=== PATIENT | male | born 1955 | race American Indian/Alaskan Native ===

== ENCOUNTER 2017-07-30 14:32 | Inpatient (IN) | payer OTHER ==
--- NOTE | 2017-07-30 14:42 | EDM.PDOC ---
ED HPI GENERAL MEDICAL PROBLEM - General Chief Complaint: Neurological Problem Stated Complaint: FALL/SYNCOPE/HALLUCINATIONS Time Seen by Provider: 07/30/17 14:42 - History of Present Illness INITIAL COMMENTS - FREE TEXT/NARRATIVE: 62-year-old male presents emergency room with decreased level of consciousness and significant sedation. According to the family he's been this way since very early this morning. The patient has been complaining of a headache. The patient recently moved in with his daughter within the last couple of weeks to get away from a bad environment were lots of drugs and alcohol were involved. According to the family he has not been doing any of this for the last several weeks. The patient is quite somnolent and not willing to answer many questions for me. He moves all 4 extremities with no localized weakness. The patient has multiple medical problems including newly diagnosed type 2 diabetes. His medication list is not currently available. He uses home treatment for sleep apnea it is not clear to CPap her BiPAP believe is on medication for his high blood pressure. He's treated for hyperlipidemia as well as his advanced lung disease. Headache Pain Score (Numeric/FACES): 5 - Related Data Allergies Allergy/AdvReac Type Severity Reaction Status Date / Time No Known Allergies Allergy Verified 07/30/17 15:13 Home Meds: Home Meds Albuterol Sulfate [Proair Respiclick] 2 inh INH Q4H PRN 07/30/17 [History] Allopurinol [Zyloprim] 350 mg PO DAILY 07/30/17 [History] Budesonide/Formoterol [Symbicort 80-4.5 MCG] 1 inh INH BID 07/30/17 [History] Cyclobenzaprine [Flexeril] 10 mg PO TID PRN 07/30/17 [History] Fish Oil/Ruffin-3 Fatty Acids [Fish Oil 1,000 MG] 1 tab PO DAILY 07/30/17 [ History] Furosemide 40 mg PO DAILY 07/30/17 [History] Glucosamine [Glucosamine Sulfate] 1 tab PO DAILY 07/30/17 [History] Indomethacin [Indocin] 50 mg PO DAILY 07/30/17 [History] Potassium Chloride 10 meq PO DAILY 07/30/17 [History] Tamsulosin HCl 0.4 mg PO DAILY 07/30/17 [History] atorvaSTATin Calcium [Atorvastatin Calcium] 20 mg PO BEDTIME 07/30/17 [History] metFORMIN HCl [Metformin HCl] 1,000 mg PO DAILY 07/30/17 [History] ED ROS GENERAL - Review of Systems Review Of Systems: Unable To Obtain ED EXAM, NEURO - Physical Exam Exam: See Below Exam Limited By: Other (She was very sedated responds to painful stimuli and at times will answer a few simple questions) General Appearance: Lethargic, Obtunded Ears: Normal External Exam, Normal Canal, Other (Significant cerumen) Nose: Normal Inspection Throat/Mouth: Normal Inspection, Normal Lips, Normal Oropharynx, Normal Voice, No Airway Compromise, Other Head Exam: Atraumatic, Other (He has some swelling at the base of his skull on the left radiating into his neck according to the family this is getting worse there is no area of fluctuation or redness or warmth on this) Neck: Supple, Non-Tender, Lymphadenopathy (R), Other (He has some swelling left side of his neck). No: Lymphadenopathy (L) Respiratory/Chest: No Respiratory Distress, Lungs Clear, Normal Breath Sounds, Decreased Breath Sounds Cardiovascular: Regular Rate, Rhythm, No Murmur, Other (Mild pitting edema noted ) GI/Abdominal: Normal Bowel Sounds, Soft, Non-Tender, Other ([place] anterior abdominal wall he has a lesion that he keeps scratching at night and causes it to bleed is probably developing into a pyogenic granuloma superior to the right side of his umbilicus. Distal to this he has some intermittent patchy areas of erythema I do not believe this represents a cellulitis at this point) Neurological: Other (Pain patient is moving all 4 extremities he is sedated to the point where thorough neurologic evaluation is not practical or possible). No: Alert Back Exam: Normal Inspection Extremities: Other (Mild pitting edema) Course - Vital Signs Last Recorded V/S: Last Vital Signs Temp 36.1 C 07/30/17 14:41 Pulse 77 07/30/17 14:41 Resp 20 07/30/17 14:41 BP 126/79 07/30/17 14:41 Pulse Ox 97 07/30/17 14:41 - Orders/Labs/Meds Orders: Active Orders 24 hr Category Date Time Status EKG Documentation Completion [RC] STAT Care 07/30/17 15:40 Active Medication Orders Acetaminophen (Tylenol) 650 mg PO Q4H PRN PRN Reason: Pain (Mild 1-3)/fever Albuterol/Ipratropium (Duoneb 3.0-0.5 Mg/3 Ml) 3 ml NEB Q4H PRN PRN Reason: Shortness Of Breath/wheezing Folic Acid (Folic Acid) 1 mg PO DAILY HANNAH Hydralazine HCl (Apresoline) 10 mg PO Q6H PRN PRN Reason: Hypertension Lorazepam (Ativan) 0 mg IVPUSH Q4H PRN; Protocol PRN Reason: withdrawl Lorazepam (Ativan) 2 mg IVPUSH Q4H PRN PRN Reason: Seizures Metoprolol Tartrate (Lopressor) 5 mg IVPUSH Q4H PRN PRN Reason: Tachycardia Ondansetron HCl (Zofran Odt) 4 mg PO Q6H PRN PRN Reason: nausea, able to take PO Ondansetron HCl (Zofran) 4 mg IV Q6H PRN PRN Reason: Nausea/Vomiting Temazepam (Restoril) 15 mg PO BEDTIME PRN PRN Reason: Sleep Thiamine HCl (Vitamin B-1) 100 mg PO DAILY HANNAH Labs: Laboratory Tests 07/30/17 07/30/17 07/30/17 Range/Units 14:45 14:45 14:45 WBC 6.77 (4.23-9.07) K/mm3 RBC 4.41 L (4.63-6.08) M/mm3 Hgb 14.2 (13.7-17.5) gm/L Hct 41.9 (40.1-51.0) % MCV 95.0 H (79.0-92.2) fl MCH 32.2 (25.7-32.2) pg MCHC 33.9 (32.2-35.5) g/dl RDW Std Deviation 46.2 H (35.1-43.9) fL Plt Count 184 (163-337) K/mm3 MPV 9.4 (9.4-12.3) fl Neutrophils % (Manual) 58 (40-60) % Band Neutrophils % 0 (0-10) % Lymphocytes % (Manual) 39 (20-40) % Atypical Lymphs % 0 % Monocytes % (Manual) 2 (2-10) % Eosinophils % (Manual) 1 (0.8-7.0) % Basophils % (Manual) 0 L (0.2-1.2) Platelet Estimate Adequate Plt Morphology Comment Normal RBC Morph Comment Normal PT 10.6 (8.0-13.0) SECONDS INR 0.97 APTT 34 (22-36) SECONDS Sodium 140 (136-145) mEq/L Potassium 4.0 (3.5-5.1) mEq/L Chloride 107 (98-107) mEq/L Carbon Dioxide 25 (21-32) mEq/L Anion Gap 12.0 (5-15) BUN 20 H (7-18) mg/dL Creatinine 1.2 (0.7-1.3) mg/dL Est Cr Clr Drug Dosing TNP Estimated GFR (MDRD) > 60 (>60) mL/min BUN/Creatinine Ratio 16.7 (14-18) Glucose 110 (80-115) mg/dL Calcium 8.9 (8.5-10.1) mg/dL Total Bilirubin 0.7 (0.2-1.0) mg/dL AST 68 H (15-37) U/L ALT 76 H (16-63) U/L Alkaline Phosphatase 106 (46-116) U/L Troponin I < 0.017 (0.00-0.056) ng/mL Total Protein 7.3 (6.4-8.2) g/dl Albumin 3.6 (3.4-5.0) g/dl Globulin 3.7 gm/dL Albumin/Globulin Ratio 1.0 (1-2) TSH 3rd Generation (0.358-3.74) uIU/mL Urine Color (Yellow) Urine Appearance (Clear) Urine pH (5.0-8.0) Ur Specific [place] (1.005-1.030) Urine Protein (Negative) Urine Glucose (UA) (Negative) Urine Ketones (Negative) Urine Occult Blood (Negative) Urine Nitrite (Negative) Urine Bilirubin (Negative) Urine Urobilinogen (0.2-1.0) Ur Leukocyte Esterase (Negative) Urine RBC (0-5) /hpf Urine WBC (0-5) /hpf Ur Epithelial Cells (0-5) /hpf Urine Bacteria (FEW) /hpf Urine Mucus (FEW) /hpf Salicylates (2.8-20) mg/dL Urine Opiates Screen (NEGATIVE) Ur Buprenorphine Scrn (NEGATIVE) Ur Oxycodone Screen (NEGATIVE) Urine Methadone Screen (NEGATIVE) Ur Propoxyphene Screen (NEGATIVE) Acetaminophen (10-30) ug/mL Ur Barbiturates Screen (NEGATIVE) Ur Tricyclics Screen (NEGATIVE) Ur Phencyclidine Scrn (NEGATIVE) Ur Amphetamine Screen (NEGATIVE) U Methamphetamines Scrn (NEGATIVE) U Benzodiazepines Scrn (NEGATIVE) U Cocaine Metab Screen (NEGATIVE) U Marijuana (THC) Screen (NEGATIVE) Ethyl Alcohol 0.00 (0.00) gm% 07/30/17 07/30/17 07/30/17 Range/Units 14:45 14:45 14:45 WBC (4.23-9.07) K/mm3 RBC (4.63-6.08) M/mm3 Hgb (13.7-17.5) gm/L Hct (40.1-51.0) % MCV (79.0-92.2) fl MCH (25.7-32.2) pg MCHC (32.2-35.5) g/dl RDW Std Deviation (35.1-43.9) fL Plt Count (163-337) K/mm3 MPV (9.4-12.3) fl Neutrophils % (Manual) (40-60) % Band Neutrophils % (0-10) % Lymphocytes % (Manual) (20-40) % Atypical Lymphs % % Monocytes % (Manual) (2-10) % Eosinophils % (Manual) (0.8-7.0) % Basophils % (Manual) (0.2-1.2) Platelet Estimate Plt Morphology Comment RBC Morph Comment PT (8.0-13.0) SECONDS INR APTT (22-36) SECONDS Sodium (136-145) mEq/L Potassium (3.5-5.1) mEq/L Chloride (98-107) mEq/L Carbon Dioxide (21-32) mEq/L Anion Gap (5-15) BUN (7-18) mg/dL Creatinine (0.7-1.3) mg/dL Est Cr Clr Drug Dosing Estimated GFR (MDRD) (>60) mL/min BUN/Creatinine Ratio (14-18) Glucose (80-115) mg/dL Calcium (8.5-10.1) mg/dL Total Bilirubin (0.2-1.0) mg/dL AST (15-37) U/L ALT (16-63) U/L Alkaline Phosphatase (46-116) U/L Troponin I (0.00-0.056) ng/mL Total Protein (6.4-8.2) g/dl Albumin (3.4-5.0) g/dl Globulin gm/dL Albumin/Globulin Ratio (1-2) TSH 3rd Generation 1.013 (0.358-3.74) uIU/mL Urine Color (Yellow) Urine Appearance (Clear) Urine pH (5.0-8.0) Ur Specific [place] (1.005-1.030) Urine Protein (Negative) Urine Glucose (UA) (Negative) Urine Ketones (Negative) Urine Occult Blood (Negative) Urine Nitrite (Negative) Urine Bilirubin (Negative) Urine Urobilinogen (0.2-1.0) Ur Leukocyte Esterase (Negative) Urine RBC (0-5) /hpf Urine WBC (0-5) /hpf Ur Epithelial Cells (0-5) /hpf Urine Bacteria (FEW) /hpf Urine Mucus (FEW) /hpf Salicylates 2.5 L (2.8-20) mg/dL Urine Opiates Screen (NEGATIVE) Ur Buprenorphine Scrn (NEGATIVE) Ur Oxycodone Screen (NEGATIVE) Urine Methadone Screen (NEGATIVE) Ur Propoxyphene Screen (NEGATIVE) Acetaminophen 0 L (10-30) ug/mL Ur Barbiturates Screen (NEGATIVE) Ur Tricyclics Screen (NEGATIVE) Ur Phencyclidine Scrn (NEGATIVE) Ur Amphetamine Screen (NEGATIVE) U Methamphetamines Scrn (NEGATIVE) U Benzodiazepines Scrn (NEGATIVE) U Cocaine Metab Screen (NEGATIVE) U Marijuana (THC) Screen (NEGATIVE) Ethyl Alcohol (0.00) gm% 07/30/17 07/30/17 Range/Units 15:30 15:30 WBC (4.23-9.07) K/mm3 RBC (4.63-6.08) M/mm3 Hgb (13.7-17.5) gm/L Hct (40.1-51.0) % MCV (79.0-92.2) fl MCH (25.7-32.2) pg MCHC (32.2-35.5) g/dl RDW Std Deviation (35.1-43.9) fL Plt Count (163-337) K/mm3 MPV (9.4-12.3) fl Neutrophils % (Manual) (40-60) % Band Neutrophils % (0-10) % Lymphocytes % (Manual) (20-40) % Atypical Lymphs % % Monocytes % (Manual) (2-10) % Eosinophils % (Manual) (0.8-7.0) % Basophils % (Manual) (0.2-1.2) Platelet Estimate Plt Morphology Comment RBC Morph Comment PT (8.0-13.0) SECONDS INR APTT (22-36) SECONDS Sodium (136-145) mEq/L Potassium (3.5-5.1) mEq/L Chloride (98-107) mEq/L Carbon Dioxide (21-32) mEq/L Anion Gap (5-15) BUN (7-18) mg/dL Creatinine (0.7-1.3) mg/dL Est Cr Clr Drug Dosing Estimated GFR (MDRD) (>60) mL/min BUN/Creatinine Ratio (14-18) Glucose (80-115) mg/dL Calcium (8.5-10.1) mg/dL Total Bilirubin (0.2-1.0) mg/dL AST (15-37) U/L ALT (16-63) U/L Alkaline Phosphatase (46-116) U/L Troponin I (0.00-0.056) ng/mL Total Protein (6.4-8.2) g/dl Albumin (3.4-5.0) g/dl Globulin gm/dL Albumin/Globulin Ratio (1-2) TSH 3rd Generation (0.358-3.74) uIU/mL Urine Color Yellow (Yellow) Urine Appearance Clear (Clear) Urine pH 6.0 (5.0-8.0) Ur Specific [place] > or = 1.030 (1.005-1.030) Urine Protein Negative (Negative) Urine Glucose (UA) Negative (Negative) Urine Ketones Negative (Negative) Urine Occult Blood Negative (Negative) Urine Nitrite Negative (Negative) Urine Bilirubin 1+ H (Negative) Urine Urobilinogen 1.0 (0.2-1.0) Ur Leukocyte Esterase Negative (Negative) Urine RBC Not seen (0-5) /hpf Urine WBC Not seen (0-5) /hpf Ur Epithelial Cells 0-5 (0-5) /hpf Urine Bacteria Not seen (FEW) /hpf Urine Mucus Not seen (FEW) /hpf Salicylates (2.8-20) mg/dL Urine Opiates Screen Negative (NEGATIVE) Ur Buprenorphine Scrn Negative (NEGATIVE) Ur Oxycodone Screen Negative (NEGATIVE) Urine Methadone Screen Negative (NEGATIVE) Ur Propoxyphene Screen Negative (NEGATIVE) Acetaminophen (10-30) ug/mL Ur Barbiturates Screen Negative (NEGATIVE) Ur Tricyclics Screen Negative (NEGATIVE) Ur Phencyclidine Scrn Negative (NEGATIVE) Ur Amphetamine Screen Presumptive positive H (NEGATIVE) U Methamphetamines Scrn Presumptive positive H (NEGATIVE) U Benzodiazepines Scrn Negative (NEGATIVE) U Cocaine Metab Screen Negative (NEGATIVE) U Marijuana (THC) Screen Presumptive positive H (NEGATIVE) Ethyl Alcohol (0.00) gm% Meds: Medications Generic Name Dose Route Start Last Admin Trade Name Freq PRN Reason Stop Dose Admin Acetaminophen 650 mg 07/30/17 20:42 Tylenol PO Q4H PRN Pain (Mild 1-3)/fever Albuterol/Ipratropium 3 ml 07/30/17 20:42 Duoneb 3.0-0.5 Mg/3 Ml NEB Q4H PRN Shortness Of Breath/wheezing Folic Acid 1 mg 07/31/17 09:00 Folic Acid PO DAILY HANNAH Hydralazine HCl 10 mg 07/30/17 20:45 Apresoline PO Q6H PRN Hypertension Lorazepam 0 mg 07/30/17 20:45 Ativan IVPUSH Q4H PRN withdrawl Protocol Lorazepam 2 mg 07/30/17 20:48 Ativan IVPUSH Q4H PRN Seizures Metoprolol Tartrate 5 mg 07/30/17 20:45 Lopressor IVPUSH Q4H PRN Tachycardia Ondansetron HCl 4 mg 07/30/17 20:42 Zofran Odt PO Q6H PRN nausea, able to take PO Ondansetron HCl 4 mg 07/30/17 20:42 Zofran IV Q6H PRN Nausea/Vomiting Temazepam 15 mg 07/30/17 20:42 Restoril PO BEDTIME PRN Sleep Thiamine HCl 100 mg 07/31/17 09:00 Vitamin B-1 PO DAILY HANNAH Discontinued Medications Generic Name Dose Route Start Last Admin Trade Name Freq PRN Reason Stop Dose Admin Iopamidol 100 ml 07/30/17 16:55 07/30/17 17:35 [id number] (76%) IVPUSH 07/30/17 16:56 80 ml ONETIME ONE Administration Naloxone HCl 0.1 mg 07/30/17 16:53 07/30/17 17:57 Narcan IVPUSH 07/30/17 16:54 Not Given ONETIME ONE Naloxone HCl 0.2 mg 07/30/17 16:58 07/30/17 17:01 Narcan IVPUSH 07/30/17 16:59 0.2 mg ONETIME ONE Administration Naloxone HCl 0.2 mg 07/30/17 16:59 07/30/17 17:10 Narcan IVPUSH 07/30/17 17:00 Not Given ONETIME ONE Naloxone HCl 0.2 mg 07/30/17 17:13 07/30/17 17:14 Narcan IVPUSH 07/30/17 17:14 0.2 mg ONETIME ONE Administration Sodium Chloride 10 ml 07/30/17 16:55 07/30/17 17:35 Saline Flush FLUSH 07/30/17 16:56 10 ml ONETIME ONE Administration - Re-Assessments/Exams Free Text/Narrative Re-Assessment/Exam: 07/30/17 21:10 Patient was initially evaluated for weakness and sedation head CT showed no acute changes but initially his presenting complaint was consisting for hemorrhage with his headache CT was unremarkable laboratory evaluation initially was unremarkable urine toxicology did come back alarming for amphetamine and methamphetamine and marijuana. This was discussed with the family who was not aware of any recent usage but did state he had been using marijuana and meth prior to moving in with them. It is suspected that his case could be due to coming off of meth high. The patient will be placed on observation for further evaluation and further disposition Departure - Departure Time of Disposition: 17:30 Disposition: Refer to Observation Clinical Impression: Overdose, Substance abuse - Discharge Information - My Orders Last 24 Hours: My Active Orders 07/30/17 15:40 EKG Documentation Completion [RC] STAT - Assessment/Plan Last 24 Hours: My Active Orders 07/30/17 15:40 EKG Documentation Completion [RC] STAT
--- NOTE | 2017-07-30 15:16 | CT ---
Head CT Technique: Multiple axial sections through the brain were obtained. Intravenous contrast was not utilized. Comparison: No previous intracranial imaging. Findings: Ventricles along with basal cisterns and sulci over convexities appear within normal limits for the patient's age. No abnormal parenchymal densities are seen. No evidence of intracranial hemorrhage. No midline shift or mass effect is seen. Bone window settings were reviewed which shows mild mucosal thickening within the ethmoid sinuses and frontal sinuses which is likely pre-existing. No acute calvarial abnormality is appreciated. Impression: 1. Sinus findings likely chronic and pre-existing. 2. No acute intracranial abnormality is identified. Diagnostic code #2
[2017-07-30] MEDS ORDERED: Naloxone 2 MG/2 ML Syringe IVPUSH ONE ×4 (16:53→17:13)
[2017-07-30] MEDS ORDERED: Iopamidol 755 Mg/ML 100 ML Bottle IVPUSH ONE (16:55)
[2017-07-30] MEDS ORDERED: Sodium Chloride 0.9% 10 ML Syringe FLUSH ONE (16:55)
--- NOTE | 2017-07-30 17:52 | CR ---
Chest: Portable view of the chest was obtained. Comparison: Prior chest x-ray of 09/21/13. Heart size is within normal limits for portable technique. Mild tortuosity of the thoracic aorta is seen. Minimal atelectasis within the left lung base is seen. No definite acute infiltrates are seen within the lungs. Bony structures are grossly intact. Impression: 1. Incidental findings. Nothing acute is definitely seen. Diagnostic code #2
--- NOTE | 2017-07-30 18:02 | CT ---
CT neck Technique: Multiple axial sections were obtained from the external auditory canals inferiorly to the very top of the lung apices. Intravenous contrast was utilized. Reconstructed coronal and sagittal images were reviewed. Findings: Visualized sinuses are clear. Parotid and submandibular salivary glands appear within normal limits. No adenopathy is seen within the neck. No other mass is appreciated within the neck. Hypopharynx not well seen which most which is likely is collapsed on a normal basis but please correlate that patient has no symptoms referrable to the hypopharynx. Bone window settings shows scattered degenerative change within the cervical spine. Impression: 1. Hypopharynx is collapsed which is likely normal but please correlate that patient has no symptoms referrable to the hypopharynx to indicate further evaluation by endoscopy. 2. Incidental degenerative change within cervical spine. 3. No additional abnormality is seen on CT study of the neck. Diagnostic code #2
--- NOTE | 2017-07-30 19:56 | PCM.HP ---
H&P History of Present Illness - General Date of Service: 07/30/17 Source of Information: Patient, Old Records, Provider, RN, Significant Other History Limitations: Reports: Uncooperative - History of Present Illness Initial Comments - Free Text/Narative: Edd Rome Jr. is a 62 yo male who parents were ED today with a decreased level consciousness and significant sedation. Family reports his been in the states since this morning. He had been complaining of a headache. The patient reportedly moved in with his daughter over the last couple weeks to avoid a bad environment with drug and alcohol use. Family reports he has been clean for the last several weeks. The patient would not answer very many questions for the provider. He moved all extremities no localized weakness. He is recently diagnosed type II diabetic. Medication list was not available. He reports that he has sleep apnea and is on CPAP or BiPAP. Daughter believes he is on medication for high blood pressure, hyperlipidemia, and advanced lung disease. He is afebrile with a temp of 36.1C. Pulse is 77. Respirations 20. BP 126/ 79. He is 97%. EKG is performed and shows a normal sinus rhythm at a rate of 75 bpm. There is low-voltage noted in the extremity leads. Labs are obtained: 3 mL normal at 6.77. Hemoglobin normal at 14.2. Hematocrit 41.9. He is macrocytic. Platelet 184,000. 50% neutrophils. No bandemia. PT is 10.6. INR 0.97. APTT 34. Sodium is 140. Potassium 4.0. Chloride 107. Carbon dioxide 25. Anion gap is 12. BUN is slightly elevated at 20. Creatinine 1.2. EGFR is greater then 60. Glucose is 110. Calcium 8.9. Total bilirubin 0.7. AST is elevated at 68, ALT elevated at 76, alkaline phosphatase normal at 106. Troponin is negative at less than 0.017. Total protein 7.3. TSH is 1.013. Ethanol alcohol is 0.00 urine drug screen is presumptive positive for amphetamines, methamphetamines, marijuana. UA is negative. Head CT is obtained showing mild mucosal thickening with the ethmoid sinuses and frontal sinuses which is likely pre-existing. No acute intracranial abnormalities noted per Dr. Avila. Chest x-ray shows incidental findings however nothing otherwise acute is identified. Daughter is concerned over a mass on the patient 's left neck. CT of the neck is performed. This is interpreted by Dr. Avila as 1. Hypothalamus axis collapse which is likely normal but please correlate the patient has no symptoms referral to the hypothalamus to indicate further evaluation by endoscopically. 2. Incidental degenerative changes within cervical spine. 3. No additional abnormalities seen on the CT study of the neck. He was given multiple doses of naloxone prior to arrival here with no effect. At the time of my exam no medication list was available and the patient is uncooperative and will not list his prior medical conditions. It is noted they believe he has sleep apnea utilizing BiPAP or CPAP, has hypertension, HLD, and advanced lung disease. He subsequently admitted to the ICU under observation status. His CODE STATUS is a full code. He does not have a primary care provider in this area. Headache Pain Score (Numeric/FACES): 5 - Related Data Allergies/Adverse Reactions: Allergies Allergy/AdvReac Type Severity Reaction Status Date / Time No Known Allergies Allergy Verified 07/30/17 15:13 Home Medications: Home Meds Albuterol Sulfate [Proair Respiclick] 2 inh INH Q4H PRN 07/30/17 [History] Allopurinol [Zyloprim] 350 mg PO DAILY 07/30/17 [History] Budesonide/Formoterol [Symbicort 80-4.5 MCG] 1 inh INH BID 07/30/17 [History] Cyclobenzaprine [Flexeril] 10 mg PO TID PRN 07/30/17 [History] Fish Oil/Peerless-3 Fatty Acids [Fish Oil 1,000 MG] 1 tab PO DAILY 07/30/17 [ History] Furosemide 40 mg PO DAILY 07/30/17 [History] Glucosamine [Glucosamine Sulfate] 1 tab PO DAILY 07/30/17 [History] Indomethacin [Indocin] 50 mg PO DAILY 07/30/17 [History] Potassium Chloride 10 meq PO DAILY 07/30/17 [History] Tamsulosin HCl 0.4 mg PO DAILY 07/30/17 [History] atorvaSTATin Calcium [Atorvastatin Calcium] 20 mg PO BEDTIME 07/30/17 [History] metFORMIN HCl [Metformin HCl] 1,000 mg PO DAILY 07/30/17 [History] Past Medical History Cardiovascular History: Reports: High Cholesterol, Stents Respiratory History: Reports: Sleep Apnea Genitourinary History: Reports: Other (See Below) Other Genitourinary History: gout Endocrine/Metabolic History: Reports: Diabetes, Type I Social & Family History - Family History Family Medical History: Noncontributory - Tobacco Use Smoking Status *Q: Current Every Day Smoker Years of Tobacco use: 10 Packs/Tins Daily: 1 Second Hand Smoke Exposure: No - Caffeine Use Caffeine Use: Reports: None - Alcohol Use Days Per Week of Alcohol Use: 3 Number of Drinks Per Day: 1 Total Drinks Per Week: 3 - Recreational Drug Use Recreational Drug Use: Yes Drug Use in Last 12 Months: Yes Recreational Drug Type: Reports: Marijuana/Hashish, Methamphetamine Recreational Drug Use Frequency: Weekly H&P Review of Systems - Review of Systems: Review Of Systems: Unable To Obtain (Patient refusing to answer questions stating "I am good" and "I don't need anything from you people.") Free Text/Narrative: I did question the patient about recent drug use. He simply responds "I don't use drugs, all I do is drink." He then responds "I don't have anything wrong with me and I don't care what you say, I'm leaving here tomorrow." Unfortunately his daughter was gone before was able to examine the patient and discuss the situation with her. Nursing does report that she has been trying to keep him clean. She did not realize he was using methamphetamine currently and he does live with her. She has kicked him out of the house in the past for methamphetamine use. She reportedly tells them that she doesn't think this is meth related and that there has to be something else wrong with him. Exam - Exam Exam: See Below - Vital Signs Vital Signs: Last Vital Signs Temp 97 F 07/30/17 14:41 Pulse 77 07/30/17 14:41 Resp 20 07/30/17 14:41 BP 126/79 07/30/17 14:41 Pulse Ox 97 07/30/17 14:41 Weight: 316 lb 8 oz - Exam Quality Assessment: Supplemental Oxygen General: Alert, Oriented, Other (Obese ). No: Cooperative, Mild Distress HEENT: Conjunctiva Clear, EACs Clear, Hearing Intact Lungs: Clear to Auscultation, Normal Respiratory Effort, Decreased Breath Sounds Cardiovascular: Regular Rate, Regular Rhythm GI/Abdominal Exam: Normal Bowel Sounds, Soft, Non-Tender, No Organomegaly, No Distention, No Mass (Male) Exam: Deferred Rectal (Males) Exam: Deferred Back Exam: Normal Inspection, Full Range of Motion Extremities: Normal Inspection, Normal Range of Motion, Non-Tender, Normal Capillary Refill, Pedal Edema Peripheral Pulses: 2+: Radial (L), Radial (R), Posterior Tibial (L), Posterior Tibial (R), Dorsalis Pedis (L), Dorsalis Pedis (R) Skin: Warm, Intact, Moist Neurological: Normal Speech Neuro Extensive - Mental Status: Alert, Oriented x3, Memory Intact, Inattentive Psychiatric: Alert, Agitated, Withdrawal Symptoms Physical Exam Comments:: Patient is extremely uncooperative and refuses to answer questions during physical exam. He tells me "you can look at what she wanted but I'm not going to talk or answer questions." He appears quite uncomfortable and is rolling around in bed. He does have oxygen on. - Patient Data Result Diagrams: 07/30/17 14:45 07/30/17 14:45 *Q Meaningful Use (ADM) - VTE *Q VTE Criteria *Q: - Stroke *Q Stroke Criteria *Q: - AMI *Q AMI Criteria *Q: - Problem List (1) Substance abuse SNOMED Code(s): 33501689 ICD Code: F19.10 - OTHER PSYCHOACTIVE SUBSTANCE ABUSE, UNCOMPLICATED Status : Acute Priority: High Current Visit: Yes Problem List Initiated/Reviewed/Updated: Yes Assessment/Plan Comment:: I/P: Acute: Withdrawal Symptoms/DT - CIWAA protocol - Seroquel - Hydralzine and IVP BB for HR/BP control - Ativan for Abortive Seizure and Withdrawal Symptoms - Tele-psych and SA consult Alcohol Abuse - Acute on Chronic - He reportedly drinks regularly - He would not explain how much he drinks or when. 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 - Counseled on Substance Abuse, although pt. was not willing to discuss it - SA/Psych consult Chronic: Patient refuses to give much of a past medical history. Daughter does note he has sleep apnea and is on CPAP\\BiPAP, HLD, HTN, advanced lung disease. Plan: Admit to ICU MVI, Folic, Acid and Thiamine CIWA protocol Ativan for Abortive Seizure and Withdrawal Symptoms PRN meds for Withdrawal Symptoms Seizure Precautions SW/CM discharge planning SA/Psych consult Code Status:Full code. He does not have a PCP in Area
[2017-07-30] MEDS ORDERED: Ondansetron 4 MG Tab.DIS PO PRN (20:42)
[2017-07-30] MEDS ORDERED: Albuterol/Ipratropium 3.0-0.5 MG/3 ML Neb Soln NEB PRN (20:42)
[2017-07-30] MEDS ORDERED: Acetaminophen 325 MG Tab PO PRN (20:42)
[2017-07-30] MEDS ORDERED: Ondansetron 4 MG/2 ML SDV IV PRN (20:42)
[2017-07-30] MEDS ORDERED: Temazepam 15 MG Cap PO PRN (20:42)
[2017-07-30] MEDS ORDERED: LORazepam 2 MG/ML MDV IVPUSH PRN ×2 (20:45→20:48)
[2017-07-30] MEDS ORDERED: hydrALAZINE 10 MG Tab PO PRN (20:45)
[2017-07-30] MEDS ORDERED: LORazepam 1 MG Tab PO PRN (20:59)
[2017-07-30] MEDS: QUEtiapine 25 MG Tab PO SCH (21:20)
[2017-07-30] MEDS: Famotidine 20 MG Tab PO SCH (21:20)
[2017-07-30] MEDS: Sodium Chloride 0.9% 1,000 ML IV SCH (22:22)
[2017-07-31] MEDS: LORazepam 2 MG/ML MDV IVPUSH PRN ×9 (03:10→18:45)
[2017-07-31] MEDS: Haloperidol Lactate 5 MG/ML SDV IVPUSH PRN ×5 (04:18→17:47)
[2017-07-31] MEDS: Sodium Chloride 0.9% 1,000 ML IV SCH ×4 (04:33→20:20)
[2017-07-31] MEDS ORDERED: Thiamine 100 MG Tab PO SCH (09:00)
[2017-07-31] MEDS ORDERED: Folic Acid 1 MG Tab PO SCH (09:00)
[2017-07-31] MEDS: Multivitamins,Therapeutic Tab PO SCH (09:12)
[2017-07-31] MEDS: Famotidine 20 MG Tab PO SCH (09:12)
[2017-07-31] MEDS: hydrALAZINE 20 MG/ML SDV IVPUSH PRN (10:01)
--- NOTE | 2017-07-31 14:32 | PCM.PN ---
- General Info Date of Service: 07/31/17 Subjective Update: Restlessness, unable to participate in interview part of evaluation. Currently NPO except meds, have been giving medication via IV site. Functional Status: Reports: Other (restless) - Review of Systems General: Reports: No Symptoms HEENT: Reports: No Symptoms Pulmonary: Reports: No Symptoms Cardiovascular: Reports: No Symptoms Gastrointestinal: Reports: No Symptoms Genitourinary: Reports: No Symptoms Musculoskeletal: Reports: No Symptoms Skin: Reports: No Symptoms Neurological: Reports: No Symptoms Psychiatric: Reports: Confusion, Mood Lability, Anxiety, Agitation - Patient Data Vitals - Most Recent: Last Vital Signs Temp 37.1 C 07/31/17 12:00 Pulse 88 07/31/17 08:10 Resp 20 07/31/17 12:00 BP 147/71 H 07/31/17 12:00 Pulse Ox 94 L 07/31/17 12:00 Weight - Most Recent: 143.562 kg I&O - Last 24 Hours: Intake & Output 07/30/17 07/31/17 07/31/17 22:59 06:59 14:59 Intake Total 240 1920 Output Total 300 400 800 Balance -60 -400 1120 Lab Results Last 24 Hours: Laboratory Results - last 24 hr 07/30/17 07/31/17 07/31/17 Range/Units 21:41 06:39 11:00 WBC 6.75 (4.23-9.07) K/mm3 RBC 4.69 (4.63-6.08) M/mm3 Hgb 15.2 (13.7-17.5) gm/L Hct 45.5 (40.1-51.0) % MCV 97.0 H (79.0-92.2) fl MCH 32.4 H (25.7-32.2) pg MCHC 33.4 (32.2-35.5) g/dl RDW Std Deviation 48.2 H (35.1-43.9) fL Plt Count 159 L (163-337) K/mm3 MPV 9.4 (9.4-12.3) fl Neut % (Auto) 68.8 H (34.0-67.9) % Lymph % (Auto) 18.4 L (21.8-53.1) % [place] % (Auto) 12.0 (5.3-12.2) % Eos % (Auto) 0.6 L (0.8-7.0) Baso % (Auto) 0.1 (0.1-1.2) % Neut # (Auto) 4.64 (1.78-5.38) K/mm3 Lymph # (Auto) 1.24 L (1.32-3.57) K/mm3 [place] # (Auto) 0.81 (0.30-0.82) K/mm3 Eos # (Auto) 0.04 (0.04-0.54) K/mm3 Baso # (Auto) 0.01 (0.01-0.08) K/mm3 Sodium (136-145) mEq/L Potassium (3.5-5.1) mEq/L Chloride (98-107) mEq/L Carbon Dioxide (21-32) mEq/L Anion Gap (5-15) BUN (7-18) mg/dL Creatinine (0.7-1.3) mg/dL Est Cr Clr Drug Dosing mL/min Estimated GFR (MDRD) (>60) mL/min BUN/Creatinine Ratio (14-18) Glucose (80-115) mg/dL POC Glucose 164 H 106 (80-115) mg/dL Calcium (8.5-10.1) mg/dL Magnesium (1.8-2.4) mg/dl C-Reactive Protein (<1.0) mg/dL 07/31/17 07/31/17 Range/Units 11:00 11:22 WBC (4.23-9.07) K/mm3 RBC (4.63-6.08) M/mm3 Hgb (13.7-17.5) gm/L Hct (40.1-51.0) % MCV (79.0-92.2) fl MCH (25.7-32.2) pg MCHC (32.2-35.5) g/dl RDW Std Deviation (35.1-43.9) fL Plt Count (163-337) K/mm3 MPV (9.4-12.3) fl Neut % (Auto) (34.0-67.9) % Lymph % (Auto) (21.8-53.1) % [place] % (Auto) (5.3-12.2) % Eos % (Auto) (0.8-7.0) Baso % (Auto) (0.1-1.2) % Neut # (Auto) (1.78-5.38) K/mm3 Lymph # (Auto) (1.32-3.57) K/mm3 [place] # (Auto) (0.30-0.82) K/mm3 Eos # (Auto) (0.04-0.54) K/mm3 Baso # (Auto) (0.01-0.08) K/mm3 Sodium 140 (136-145) mEq/L Potassium 4.3 (3.5-5.1) mEq/L Chloride 105 (98-107) mEq/L Carbon Dioxide 30 (21-32) mEq/L Anion Gap 9.3 (5-15) BUN 13 (7-18) mg/dL Creatinine 1.1 (0.7-1.3) mg/dL Est Cr Clr Drug Dosing 63.43 mL/min Estimated GFR (MDRD) > 60 (>60) mL/min BUN/Creatinine Ratio 11.8 L (14-18) Glucose 107 (80-115) mg/dL POC Glucose 110 (80-115) mg/dL Calcium 8.7 (8.5-10.1) mg/dL Magnesium 2.1 (1.8-2.4) mg/dl C-Reactive Protein 7.2 H* (<1.0) mg/dL Med Orders - Current: Current Medications Acetaminophen (Tylenol) 650 mg PO Q4H PRN PRN Reason: Pain (Mild 1-3)/fever Albuterol/Ipratropium (Duoneb 3.0-0.5 Mg/3 Ml) 3 ml NEB Q4H PRN PRN Reason: Shortness Of Breath/wheezing Allopurinol (Zyloprim) 350 mg PO DAILY [facility] Clonidine HCl (Catapres) 0.1 mg PO Q12HR [facility] Famotidine (Pepcid) 20 mg PO BID [facility] Last Admin: 07/31/17 09:12 Dose: Not Given Folic Acid (Folic Acid) 1 mg PO DAILY [facility] Last Admin: 07/31/17 09:12 Dose: Not Given Haloperidol Lactate (Haldol) 7 mg IVPUSH Q2H PRN PRN Reason: Anxiety Last Admin: 07/31/17 12:35 Dose: 7 mg Hydralazine HCl (Apresoline) 20 mg IVPUSH Q6H PRN PRN Reason: Hypertension Last Admin: 07/31/17 10:01 Dose: 20 mg Sodium Chloride (Normal Saline) 1,000 mls @ 150 mls/hr IV ASDIRECTED [facility] Last Admin: 07/31/17 11:24 Dose: 150 mls/hr Lorazepam (Ativan) 0 mg IVPUSH Q1H PRN; Protocol PRN Reason: withdrawl Last Admin: 07/31/17 13:50 Dose: 2 mg Lorazepam (Ativan) 1 mg IVPUSH Q4H PRN PRN Reason: Anxiety Last Admin: 07/31/17 11:03 Dose: 1 mg Metoprolol Tartrate (Lopressor) 5 mg IVPUSH Q4H PRN PRN Reason: Tachycardia Mometasone Furoate/Formoterol Fumar (Dulera 100-5 Mcg) 0 puff IH BIDRT [facility] Multivitamins (Thera) 1 each PO DAILY [facility] Last Admin: 07/31/17 09:12 Dose: Not Given Ondansetron HCl (Zofran Odt) 4 mg PO Q6H PRN PRN Reason: nausea, able to take PO Ondansetron HCl (Zofran) 4 mg IV Q6H PRN PRN Reason: Nausea/Vomiting Quetiapine Fumarate (Seroquel) 50 mg PO BEDTIME [facility] Last Admin: 07/30/17 21:20 Dose: 50 mg Simvastatin (Zocor) 20 mg PO BEDTIME [facility] Tamsulosin HCl (Flomax) 0.4 mg PO DAILY [facility] Temazepam (Restoril) 15 mg PO BEDTIME PRN PRN Reason: Sleep Last Admin: 07/30/17 21:19 Dose: 15 mg Thiamine HCl (Vitamin B-1) 100 mg PO DAILY [facility] Last Admin: 07/31/17 09:13 Dose: Not Given Discontinued Medications Budesonide/Formoterol Fumarate (Symbicort 80-4.5 Mcg) 0 gm INH BIDRT [facility] Haloperidol Lactate (Haldol) 5 mg IVPUSH Q4H PRN PRN Reason: Anxiety Last Admin: 07/31/17 11:00 Dose: 5 mg Hydralazine HCl (Apresoline) 10 mg PO Q6H PRN PRN Reason: Hypertension Iopamidol (Isovue-370 (76%)) 100 ml IVPUSH ONETIME ONE Stop: 07/30/17 16:56 Last Admin: 07/30/17 17:35 Dose: 80 ml Lorazepam (Ativan) 0 mg IVPUSH Q4H PRN; Protocol PRN Reason: withdrawl Last Admin: 07/30/17 21:20 Dose: 1 mg Lorazepam (Ativan) 2 mg IVPUSH Q4H PRN PRN Reason: Seizures Lorazepam (Ativan) 1 mg PO Q4H PRN PRN Reason: anxiety Naloxone HCl (Narcan) 0.1 mg IVPUSH ONETIME ONE Stop: 07/30/17 16:54 Last Admin: 07/30/17 17:57 Dose: Not Given Naloxone HCl (Narcan) 0.2 mg IVPUSH ONETIME ONE Stop: 07/30/17 16:59 Last Admin: 07/30/17 17:01 Dose: 0.2 mg Naloxone HCl (Narcan) 0.2 mg IVPUSH ONETIME ONE Stop: 07/30/17 17:00 Last Admin: 07/30/17 17:10 Dose: Not Given Naloxone HCl (Narcan) 0.2 mg IVPUSH ONETIME ONE Stop: 07/30/17 17:14 Last Admin: 07/30/17 17:14 Dose: 0.2 mg Sodium Chloride (Saline Flush) 10 ml FLUSH ONETIME ONE Stop: 07/30/17 16:56 Last Admin: 07/30/17 17:35 Dose: 10 ml - Exam Quality Assessment: Supplemental Oxygen, DVT Prophylaxis General: No Acute Distress HEENT: Pupils Equal, Pupils Reactive, EOMI Neck: Trachea Midline, No JVD Lungs: Normal Respiratory Effort, Decreased Breath Sounds Cardiovascular: Regular Rate, Tachycardia GI/Abdominal Exam: Normal Bowel Sounds, Soft, Non-Tender, No Organomegaly, No Distention (Male) Exam: Deferred Back Exam: Normal Inspection Extremities: Normal Inspection Skin: Warm Psy/Mental Status: Labile Mood, Agitated - Problem List Review Problem List Initiated/Reviewed/Updated: Yes - My Orders Last 24 Hours: My Active Orders 07/31/17 09:44 hydrALAZINE [Apresoline] 20 mg IVPUSH Q6H PRN 07/31/17 11:28 Urinary Catheter Assessment [RC] Q4HR 07/31/17 11:30 Malin Catheter Insertion [Insert Urinary Catheter] [OM.PC] Q24H 07/31/17 12:29 Haloperidol Lactate [Haldol] 7 mg IVPUSH Q2H PRN 07/31/17 14:18 RT BiPAP/CPAP [RC] ASDIRECTED 07/31/17 21:00 Mometasone/Formoterol [Dulera 100-5 MCG] 0 puff IH BIDRT Simvastatin [Zocor] 20 mg PO BEDTIME cloNIDine [Catapres] 0.1 mg PO Q12HR 08/01/17 05:00 BASIC METABOLIC PANEL,BMP [CHEM] DAILY CBC WITH AUTO DIFF [HEME] DAILY CRP [C-REACTIVE PROTEIN] [CHEM] DAILY MAGNESIUM [CHEM] DAILY 08/01/17 09:00 Allopurinol [Zyloprim] 350 mg PO DAILY Tamsulosin [Flomax] 0.4 mg PO DAILY 08/02/17 05:00 BASIC METABOLIC PANEL,BMP [CHEM] DAILY CBC WITH AUTO DIFF [HEME] DAILY CRP [C-REACTIVE PROTEIN] [CHEM] DAILY MAGNESIUM [CHEM] DAILY 08/02/17 11:00 Consult for Substance Abuse [CONS] Routine 08/03/17 05:00 BASIC METABOLIC PANEL,BMP [CHEM] DAILY CBC WITH AUTO DIFF [HEME] DAILY CRP [C-REACTIVE PROTEIN] [CHEM] DAILY MAGNESIUM [CHEM] DAILY 08/04/17 05:00 BASIC METABOLIC PANEL,BMP [CHEM] DAILY CBC WITH AUTO DIFF [HEME] DAILY CRP [C-REACTIVE PROTEIN] [CHEM] DAILY MAGNESIUM [CHEM] DAILY - Plan Plan:: I/P: Acute: Withdrawal Symptoms/DT - CIWAA protocol - Seroquel - Hydralzine and IVP BB for HR/BP control - Ativan for Abortive Seizure and Withdrawal Symptoms - Tele-psych and SA consult Alcohol Abuse - Acute on Chronic - He reportedly drinks regularly - He would not explain how much he drinks or when. 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 - Counseled on Substance Abuse, although pt. was not willing to discuss it - SA/Psych consult Chronic: Patient refuses to give much of a past medical history. Daughter does note he has sleep apnea and is on CPAP\\BiPAP, HLD, HTN, advanced lung disease. Plan: Admit to ICU MVI, Folic, Acid and Thiamine CIWA protocol Ativan for Abortive Seizure and Withdrawal Symptoms PRN meds for Withdrawal Symptoms Seizure Precautions SW/CM discharge planning SA/Psych consult Code Status:Full code. He does not have a PCP in Area Late rounds 1829 hout: Patient became restless has required haldol and ativan with increasing frequency. Patient required the assistance of 6-7 healthcare providers including 6 nurses and 2 physicians. Hospitalist service provide care to the patient during his profound agitaion/restless for 1 hour 15 minutes. Leather restarints were required, the patient could not be redirected and did not respond to the pharmaceutical agents which previously worked. He did not take oral meds yesterday. The patient received ketamine 100 mg IV for restless ness; he had O2 sats 70-84%; he was electively intubated and started on a propofol drip to sedation. See procedure not by Dr Del Toro regarding the intubation.
[2017-07-31] MEDS: Folic Acid 50 MG/10 ML MDV IV SCH (17:16)
[2017-07-31] MEDS: Thiamine 200 MG/2 ML MDV IV SCH (17:20)
[2017-07-31] MEDS: Enoxaparin 40 MG/0.4 ML Syringe SUBCUT SCH (17:20)
[2017-07-31] MEDS: Metoprolol Tartrate 5 MG/5 ML SDV IVPUSH PRN (17:26)
[2017-07-31] MEDS ORDERED: Haloperidol Lactate 5 MG/ML SDV IVPUSH ONE (18:26)
[2017-07-31] MEDS ORDERED: Haloperidol Lactate 5 MG/ML SDV ONE (18:26)
[2017-07-31] MEDS ORDERED: Ketamine 500 mg/10 ML MDV IV ONE (18:57)
[2017-07-31] MEDS ORDERED: Propofol 200 MG/20 ML SDV IVPUSH ONE (19:18)
--- NOTE | 2017-07-31 19:39 | PCM.PRNOTE ---
- Free Text/Narrative Note: Procedure: Endotracheal intubation Indication: Respiratory failure The patient was ventilated with BVM and pre-oxygenated to SpO2 100%. Propofol 100 mg was given IVP, and once adequate sedation was achieved, the patient was endotracheally intubated with an 8.0 ET tube to 26 cm at the gingiva, using a Mac 4 blade. The vocal cords were visualized, and the ET tube witnessed passing through the cords. Positive CO2 detector. Positive bilateral chest rise. Positive bilateral breath sounds on auscultation. Post-intubation portal chest radiograph requested. Following intubation, copious purulent secretions were noted, and the patient was cannula suctioned. I recommended culture of this. Initial vent settings suggested: A/C 12 / .500 / 5 / 0.50 Subsequent sedation and vent management will be per Dr. Shepard.
--- NOTE | 2017-07-31 19:52 | CR ---
Chest: Portable view of the chest was obtained. Comparison: Prior chest x-ray performed 07/30/17. Heart size and mediastinum are within normal limits for portable technique. Mild tortuosity of the thoracic aorta is again noted. No acute infiltrates are seen. Endotracheal tube is seen with tip lying approximately 2.4 cm above the rene. Impression: 1. Position of endotracheal tube as noted above. Nothing acute is appreciated on portable chest x-ray. Diagnostic code #2
[2017-07-31] MEDS: Formoterol/Mometasone 100-5 MCG 8.8 GM Inhaler IH SCH (20:30)
[2017-07-31] MEDS: Albuterol/Ipratropium 3.0-0.5 MG/3 ML Neb Soln NEB SCH (20:50)
[2017-07-31] MEDS ORDERED: Budesonide/Formoterol 80-4.5 MCG/Puff 6.9 GM Inhaler INH SCH (21:00)
[2017-07-31] MEDS: Levofloxacin/Dextrose 5%-Water 750 MG in Premix Bag 1 BAG IV SCH (21:59)
[2017-07-31] MEDS: Famotidine 20 MG/2 ML SDV IVPUSH SCH (22:05)
[2017-07-31] MEDS: cloNIDine 0.1 MG Tab PO SCH (22:31)
[2017-07-31] MEDS: QUEtiapine 25 MG Tab PO SCH (22:31)
[2017-07-31] MEDS: Simvastatin 20 MG Tab PO SCH (22:31)
[2017-08-01] MEDS: NS + KCl 20mEq/L 1,000 ML IV SCH ×2 (02:18→12:09)
[2017-08-01] MEDS ORDERED: Norepinephrine 4 MG in Dextrose 5% in Water 246 ML IV SCH ×2 (02:30)
[2017-08-01] MEDS: Albuterol 0.083% 2.5 MG/3 ML Neb Soln NEB PRN (04:31)
[2017-08-01] MEDS: Formoterol/Mometasone 100-5 MCG 8.8 GM Inhaler IH SCH ×2 (05:18→19:59)
[2017-08-01] MEDS: Albuterol/Ipratropium 3.0-0.5 MG/3 ML Neb Soln NEB SCH ×4 (06:40→21:29)
[2017-08-01] MEDS: Tamsulosin 0.4 MG Cap.ER PO SCH (08:01)
[2017-08-01] MEDS: cloNIDine 0.1 MG Tab PO SCH ×2 (08:01→20:44)
[2017-08-01] MEDS: Multivitamins,Therapeutic Tab PO SCH (08:01)
[2017-08-01] MEDS: Allopurinol 100 MG Tab PO SCH (08:02)
[2017-08-01] MEDS: Thiamine 200 MG/2 ML MDV IV SCH ×2 (08:02→08:40)
[2017-08-01] MEDS: Folic Acid 50 MG/10 ML MDV IV SCH (08:39)
[2017-08-01] MEDS: Enoxaparin 40 MG/0.4 ML Syringe SUBCUT SCH (08:41)
[2017-08-01] MEDS: Famotidine 20 MG/2 ML SDV IVPUSH SCH ×2 (08:41→20:30)
--- NOTE | 2017-08-01 10:06 | CR ---
Chest: Portable view of the chest was obtained. Comparison: Prior chest x-ray performed earlier on the same day (1:13 AM). Endotracheal tube is seen. Tip lies above the rene and stable in position from previous exam. Nasogastric tube is seen with tip extending off the inferior edge of the film into the stomach. Heart size and mediastinum are stable. Increased lung markings are seen which appear stable. Impression: 1. Satisfactory location of endotracheal tube and nasogastric tube. 2. Other portions of the chest remain stable. Diagnostic code #3
[2017-08-01] MEDS ORDERED: Furosemide 40 MG/4 ML VIAL IVPUSH ONE (15:03)
--- NOTE | 2017-08-01 15:03 | PCM.PN ---
- General Info Date of Service: 08/01/17 - Review of Systems General: Reports: No Symptoms HEENT: Reports: No Symptoms Pulmonary: Reports: No Symptoms Cardiovascular: Reports: No Symptoms Gastrointestinal: Reports: No Symptoms Genitourinary: Reports: No Symptoms Musculoskeletal: Reports: No Symptoms Skin: Reports: No Symptoms Neurological: Reports: No Symptoms Psychiatric: Reports: No Symptoms - Patient Data Vitals - Most Recent: Last Vital Signs Temp 36.7 C 08/01/17 14:00 Pulse 87 08/01/17 14:00 Resp 17 08/01/17 14:00 BP 130/70 08/01/17 14:00 Pulse Ox 94 L 08/01/17 14:00 Weight - Most Recent: 143.562 kg I&O - Last 24 Hours: Intake & Output 08/01/17 08/01/17 08/01/17 06:59 14:59 22:59 Output Total 450 Balance -450 Lab Results Last 24 Hours: Laboratory Results - last 24 hr 08/01/17 08/01/17 Range/Units 11:37 12:30 Puncture Site Lt radial ABG pH 7.34 L (7.35-7.45) ABG pCO2 48.5 H (35.0-45.0) mmHg ABG pO2 58.0 L (80.0-100.0) mmHg ABG HCO3 25.2 (22.0-26.0) meq/L ABG O2 Saturation 88.4 L (96.0-97.0) % ABG Base Excess -0.6 (-2-2.0) Navi Test Positive O2 Delivery Device Ventilator FiO2 0.00 L (21.00-100.00) % Tidal Volume 600.0 cc PEEP 10.0 cmH20 POC Glucose 89 (80-115) mg/dL Med Orders - Current: Current Medications Acetaminophen (Tylenol) 650 mg PO Q4H PRN PRN Reason: Pain (Mild 1-3)/fever Albuterol (Proventil Neb Soln) 2.5 mg NEB Q4HRRT PRN PRN Reason: Shortness of Breath Last Admin: 08/01/17 04:31 Dose: 2.5 mg Albuterol/Ipratropium (Duoneb 3.0-0.5 Mg/3 Ml) 3 ml NEB QIDRT [facility] Last Admin: 08/01/17 09:21 Dose: 3 ml Allopurinol (Zyloprim) 350 mg PO DAILY [facility] Last Admin: 08/01/17 08:02 Dose: Not Given Clonidine HCl (Catapres) 0.1 mg PO Q12HR [facility] Last Admin: 08/01/17 08:01 Dose: Not Given Enoxaparin Sodium (Lovenox) 40 mg SUBCUT DAILY [facility] Last Admin: 08/01/17 08:41 Dose: 40 mg Famotidine (Pepcid) 20 mg IVPUSH BID [facility] Last Admin: 08/01/17 08:41 Dose: 20 mg Folic Acid (Folic Acid) 1 mg IV DAILY [facility] Last Admin: 08/01/17 08:39 Dose: 1 mg Haloperidol Lactate (Haldol) 4 mg IVPUSH Q6H PRN PRN Reason: restlessness Hydralazine HCl (Apresoline) 20 mg IVPUSH Q6H PRN PRN Reason: Hypertension Last Admin: 07/31/17 10:01 Dose: 20 mg Sodium Chloride (Normal Saline) 1,000 mls @ 150 mls/hr IV ASDIRECTED [facility] Last Admin: 07/31/17 20:20 Dose: 150 mls/hr Levofloxacin/Dextrose 750 mg/ (Premix) 150 mls @ 100 mls/hr IV Q24H [facility] Last Admin: 07/31/17 21:59 Dose: 100 mls/hr Potassium Chloride/Sodium Chloride (Normal Saline With 20 Meq Kcl) 1,000 mls @ 100 mls/hr IV ASDIRECTED [facility] Last Admin: 08/01/17 12:09 Dose: 100 mls/hr Propofol (Diprivan 100 Ml) 100 mls @ 17.16 mls/hr IV TITRATE [facility]; 20 MCG/KG/MIN PRN Reason: Protocol Last Admin: 08/01/17 13:19 Dose: 40 mcg/kg/min, 34.32 mls/hr Norepinephrine Bitartrate 4 mg (/ Dextrose/Water) 250 mls @ 7.5 mls/hr IV TITRATE [facility]; 2 MCG/MIN PRN Reason: Protocol Lorazepam (Ativan) 0 mg IVPUSH Q1H PRN; Protocol PRN Reason: withdrawl Last Admin: 07/31/17 18:45 Dose: 2 mg Lorazepam (Ativan) 1 mg IVPUSH Q4H PRN PRN Reason: Anxiety Last Admin: 07/31/17 11:03 Dose: 1 mg Metoprolol Tartrate (Lopressor) 5 mg IVPUSH Q4H PRN PRN Reason: Tachycardia Last Admin: 07/31/17 17:26 Dose: 5 mg Mometasone Furoate/Formoterol Fumar (Dulera 100-5 Mcg) 0 puff IH BIDRT [facility] Last Admin: 08/01/17 05:18 Dose: Not Given Multivitamins (Thera) 1 each PO DAILY [facility] Last Admin: 08/01/17 08:01 Dose: Not Given Ondansetron HCl (Zofran Odt) 4 mg PO Q6H PRN PRN Reason: nausea, able to take PO Ondansetron HCl (Zofran) 4 mg IV Q6H PRN PRN Reason: Nausea/Vomiting Quetiapine Fumarate (Seroquel) 50 mg PO BEDTIME [facility] Last Admin: 07/31/17 22:31 Dose: Not Given Simvastatin (Zocor) 20 mg PO BEDTIME [facility] Last Admin: 07/31/17 22:31 Dose: Not Given Tamsulosin HCl (Flomax) 0.4 mg PO DAILY [facility] Last Admin: 08/01/17 08:01 Dose: Not Given Temazepam (Restoril) 15 mg PO BEDTIME PRN PRN Reason: Sleep Last Admin: 07/30/17 21:19 Dose: 15 mg Thiamine HCl (Vitamin B-1) 100 mg IV DAILY [facility] Last Admin: 08/01/17 08:40 Dose: 100 mg Discontinued Medications Albuterol/Ipratropium (Duoneb 3.0-0.5 Mg/3 Ml) 3 ml NEB Q4H PRN PRN Reason: Shortness Of Breath/wheezing Last Admin: 07/31/17 15:50 Dose: 3 ml Budesonide/Formoterol Fumarate (Symbicort 80-4.5 Mcg) 0 gm INH BIDRT [facility] Famotidine (Pepcid) 20 mg PO BID [facility] Last Admin: 07/31/17 09:12 Dose: Not Given Folic Acid (Folic Acid) 1 mg PO DAILY [facility] Last Admin: 07/31/17 09:12 Dose: Not Given Haloperidol Lactate (Haldol) 5 mg IVPUSH Q4H PRN PRN Reason: Anxiety Last Admin: 07/31/17 11:00 Dose: 5 mg Haloperidol Lactate (Haldol) 7 mg IVPUSH Q2H PRN PRN Reason: Anxiety Last Admin: 07/31/17 17:47 Dose: 7 mg Haloperidol Lactate (Haldol) Confirm Administered Dose 5 mg .ROUTE .STK-MED ONE Stop: 07/31/17 18:27 Last Admin: 07/31/17 19:01 Dose: Not Given Haloperidol Lactate (Haldol) 5 mg IVPUSH ONETIME ONE Stop: 07/31/17 18:27 Last Admin: 07/31/17 18:27 Dose: 5 mg Hydralazine HCl (Apresoline) 10 mg PO Q6H PRN PRN Reason: Hypertension Propofol (Diprivan 100 Ml) Confirm Administered Dose 100 mls @ as directed .ROUTE .STK-MED ONE Stop: 07/31/17 19:26 Last Admin: 07/31/17 20:55 Dose: Not Given Iopamidol (Isovue-370 (76%)) 100 ml IVPUSH ONETIME ONE Stop: 07/30/17 16:56 Last Admin: 07/30/17 17:35 Dose: 80 ml Ketamine HCl (Ketalar) 100 mg IV ONETIME ONE Stop: 07/31/17 18:58 Last Admin: 07/31/17 18:57 Dose: 100 mg Lorazepam (Ativan) 0 mg IVPUSH Q4H PRN; Protocol PRN Reason: withdrawl Last Admin: 07/30/17 21:20 Dose: 1 mg Lorazepam (Ativan) 2 mg IVPUSH Q4H PRN PRN Reason: Seizures Lorazepam (Ativan) 1 mg PO Q4H PRN PRN Reason: anxiety Naloxone HCl (Narcan) 0.1 mg IVPUSH ONETIME ONE Stop: 07/30/17 16:54 Last Admin: 07/30/17 17:57 Dose: Not Given Naloxone HCl (Narcan) 0.2 mg IVPUSH ONETIME ONE Stop: 07/30/17 16:59 Last Admin: 07/30/17 17:01 Dose: 0.2 mg Naloxone HCl (Narcan) 0.2 mg IVPUSH ONETIME ONE Stop: 07/30/17 17:00 Last Admin: 07/30/17 17:10 Dose: Not Given Naloxone HCl (Narcan) 0.2 mg IVPUSH ONETIME ONE Stop: 07/30/17 17:14 Last Admin: 07/30/17 17:14 Dose: 0.2 mg Propofol (Diprivan 20 Ml) 100 mg IVPUSH ONETIME ONE Stop: 07/31/17 19:19 Last Admin: 07/31/17 19:18 Dose: 100 mg Sodium Chloride (Saline Flush) 10 ml FLUSH ONETIME ONE Stop: 07/30/17 16:56 Last Admin: 07/30/17 17:35 Dose: 10 ml Thiamine HCl (Vitamin B-1) 100 mg PO DAILY [facility] Last Admin: 07/31/17 09:13 Dose: Not Given - Exam Quality Assessment: Supplemental Oxygen, DVT Prophylaxis General: Sedated HEENT: Pupils Equal, Pupils Reactive Neck: Trachea Midline Lungs: Normal Respiratory Effort, Decreased Breath Sounds Cardiovascular: Regular Rate, Regular Rhythm GI/Abdominal Exam: Normal Bowel Sounds, Soft, Non-Tender, No Organomegaly, No Distention (Male) Exam: Deferred Back Exam: Normal Inspection Extremities: Normal Inspection Skin: Warm Psy/Mental Status: Other (sedated on the vent) - Problem List Review Problem List Initiated/Reviewed/Updated: Yes - Plan Plan:: I/P: Acute: Withdrawal Symptoms/DT - CIWAA protocol -[facility] vent -sedation with propofol Alcohol Abuse - Acute on Chronic - He reportedly drinks regularly - He would not explain how much he drinks or when. 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 - Counseled on Substance Abuse, although pt. was not willing to discuss it - SA/Psych consult------>postponed, unable to participate, will attempt weaning parameters, 08/03/17. Chronic: Daughter does note he has sleep apnea and is on CPAP\\BiPAP, HLD, HTN, advanced lung disease. Plan: Admit to ICU MVI, Folic, Acid and Thiamine CIWA protocol Ativan for Abortive Seizure and Withdrawal Symptoms PRN meds for Withdrawal Symptoms Seizure Precautions SW/CM discharge planning SA/Psych consult Code Status:Full code. He does not have a PCP in Area Late rounds on 07/31/17 1830 hour: Patient became restless has required haldol and ativan with increasing frequency. Patient required the assistance of multiple healthcare providers including 6 nurses and 2 physicians. Hospitalist service provide care to the patient during his profound agitation/restless for 1 hour 15 minutes. Leather restraints were required, the patient could not be redirected and did not respond to the pharmaceutical agents which previously worked. He did not take oral meds yesterday. The patient received ketamine 100 mg IV for restlessness; he had O2 sats 70-84%; he was electively intubated and started on a propofol drip to sedation. See procedure not by Dr Del Toro 07/31/17 regarding the intubation. NB------>Collectively on the day of intubation (07/31/17), three family meetings occurred, time spent 60 minutes total, this does not include ICU care.
[2017-08-01] MEDS ORDERED: Dextrose 5% in Water 1,000 ML IV SCH (18:00)
[2017-08-01] MEDS: Dextrose 5%-0.9% NaCl 1,000 ML IV SCH (18:42)
[2017-08-01] MEDS: Levofloxacin/Dextrose 5%-Water 750 MG in Premix Bag 1 BAG IV SCH (20:30)
[2017-08-01] MEDS: QUEtiapine 25 MG Tab PO SCH (20:44)
[2017-08-01] MEDS: Simvastatin 20 MG Tab PO SCH (20:44)
[2017-08-01] MEDS ORDERED: Propofol 200 MG/20 ML SDV ONE (22:22)
[2017-08-01] MEDS ORDERED: Ketamine 500 mg/10 ML MDV ONE (22:22)
[2017-08-02] MEDS: NS + KCl 20mEq/L 1,000 ML IV SCH ×2 (00:50→13:59)
[2017-08-02] MEDS ORDERED: Furosemide 40 MG/4 ML VIAL IVPUSH ONE (05:00)
[2017-08-02] MEDS: Albuterol/Ipratropium 3.0-0.5 MG/3 ML Neb Soln NEB SCH ×4 (05:54→20:15)
--- NOTE | 2017-08-02 07:52 | CR ---
Chest: Portable view of the chest is obtained. Comparison: Prior chest x-ray of 08/01/17. Endotracheal tube is seen. Tip lies between the clavicle and rene. Nasogastric tube is seen coursing off the inferior edge of the film into the stomach. Lungs are clear. Bony structures are grossly intact. Impression: 1. Endotracheal tube and nasogastric tube which are felt to be satisfactory in position. 2. Nothing acute is otherwise seen on portable chest x-ray. Diagnostic code #3
--- NOTE | 2017-08-02 07:53 | CR ---
Chest: Frontal view of the chest was obtained utilizing portable technique. Comparison: Prior chest x-ray of 07/31/17. Tip of endotracheal tube lies above the rene stable in position from prior study. Nasogastric tube is seen on current exam with tip being difficult to identify but lies at least within the stomach. Heart size is stable. Upper mediastinum is stable. Central lung markings are increased which appear stable. Impression: 1. Satisfactory position of endotracheal tube and nasogastric tube. 2. Other portions of the chest are stable. Diagnostic code #3 Agree with preliminary report issued by [employer] [facility] ([facility] preliminary report dictated on 08/01/17, 2:33 AM Central Time)
[2017-08-02] MEDS: cloNIDine 0.1 MG Tab PO SCH ×2 (10:16→23:01)
[2017-08-02] MEDS: Multivitamins,Therapeutic Tab PO SCH (10:16)
[2017-08-02] MEDS: Tamsulosin 0.4 MG Cap.ER PO SCH (10:16)
[2017-08-02] MEDS: Folic Acid 50 MG/10 ML MDV IV SCH (10:17)
[2017-08-02] MEDS: Enoxaparin 40 MG/0.4 ML Syringe SUBCUT SCH (10:18)
[2017-08-02] MEDS: Famotidine 20 MG/2 ML SDV IVPUSH SCH ×2 (10:18→21:27)
[2017-08-02] MEDS: Thiamine 200 MG/2 ML MDV IV SCH (10:19)
[2017-08-02] MEDS: Allopurinol 100 MG Tab PO SCH (10:27)
[2017-08-02] MEDS: Formoterol/Mometasone 100-5 MCG 8.8 GM Inhaler IH SCH ×2 (10:28→20:13)
[2017-08-02] MEDS: Dextrose 5%-0.9% NaCl 1,000 ML IV SCH (13:59)
--- NOTE | 2017-08-02 17:28 | PCM.PN ---
- General Info Date of Service: 08/02/17 Subjective Update: NPO, sedated; [facility]; no change in vent settings before rounds - Review of Systems General: Reports: No Symptoms HEENT: Reports: No Symptoms Pulmonary: Reports: No Symptoms Cardiovascular: Reports: No Symptoms Gastrointestinal: Reports: No Symptoms Genitourinary: Reports: No Symptoms Musculoskeletal: Reports: No Symptoms Skin: Reports: No Symptoms Neurological: Reports: No Symptoms Psychiatric: Reports: No Symptoms - Patient Data Vitals - Most Recent: Last Vital Signs Temp 98.6 C H 08/02/17 16:00 Pulse 93 08/02/17 16:00 Resp 17 08/02/17 16:00 BP 139/72 08/02/17 16:00 Pulse Ox 93 L 08/02/17 16:00 Weight - Most Recent: 143.562 kg I&O - Last 24 Hours: Intake & Output 08/02/17 08/02/17 08/02/17 06:59 14:59 22:59 Intake Total 8099 4021 Output Total 1044 600 245 Balance 1007 -840 6016 Lab Results Last 24 Hours: Laboratory Results - last 24 hr 08/01/17 08/01/17 08/01/17 Range/Units 17:34 17:51 19:59 WBC (4.23-9.07) K/mm3 RBC (4.63-6.08) M/mm3 Hgb (13.7-17.5) gm/L Hct (40.1-51.0) % MCV (79.0-92.2) fl MCH (25.7-32.2) pg MCHC (32.2-35.5) g/dl RDW Std Deviation (35.1-43.9) fL Plt Count (163-337) K/mm3 MPV (9.4-12.3) fl Neut % (Auto) (34.0-67.9) % Lymph % (Auto) (21.8-53.1) % Stanley % (Auto) (5.3-12.2) % Eos % (Auto) (0.8-7.0) Baso % (Auto) (0.1-1.2) % Neut # (Auto) (1.78-5.38) K/mm3 Lymph # (Auto) (1.32-3.57) K/mm3 Stanley # (Auto) (0.30-0.82) K/mm3 Eos # (Auto) (0.04-0.54) K/mm3 Baso # (Auto) (0.01-0.08) K/mm3 Puncture Site Lt radial ABG pH 7.36 (7.35-7.45) ABG pCO2 47.0 H (35.0-45.0) mmHg ABG pO2 64.0 L (80.0-100.0) mmHg ABG HCO3 26.0 (22.0-26.0) meq/L ABG O2 Saturation (96.0-97.0) % ABG Base Excess 0.6 (-2-2.0) Navi Test Positive A-a Gradient 261 mmHg O2 Delivery Device Ventilator FiO2 0.00 L (21.00-100.00) % Tidal Volume cc PEEP 10.0 cmH20 Sodium (136-145) mEq/L Potassium (3.5-5.1) mEq/L Chloride (98-107) mEq/L Carbon Dioxide (21-32) mEq/L Anion Gap (5-15) BUN (7-18) mg/dL Creatinine (0.7-1.3) mg/dL Est Cr Clr Drug Dosing mL/min Estimated GFR (MDRD) (>60) mL/min BUN/Creatinine Ratio (14-18) Glucose (80-115) mg/dL POC Glucose 84 103 (80-115) mg/dL Calcium (8.5-10.1) mg/dL Magnesium (1.8-2.4) mg/dl C-Reactive Protein (<1.0) mg/dL 08/02/17 08/02/17 08/02/17 Range/Units 01:19 05:28 05:40 WBC 6.56 (4.23-9.07) K/mm3 RBC 4.32 L (4.63-6.08) M/mm3 Hgb 13.9 (13.7-17.5) gm/L Hct 42.4 (40.1-51.0) % MCV 98.1 H (79.0-92.2) fl MCH 32.2 (25.7-32.2) pg MCHC 32.8 (32.2-35.5) g/dl RDW Std Deviation 50.1 H (35.1-43.9) fL Plt Count 196 (163-337) K/mm3 MPV 9.5 (9.4-12.3) fl Neut % (Auto) 68.1 H (34.0-67.9) % Lymph % (Auto) 17.2 L (21.8-53.1) % Stanley % (Auto) 13.9 H (5.3-12.2) % Eos % (Auto) 0.3 L (0.8-7.0) Baso % (Auto) 0.2 (0.1-1.2) % Neut # (Auto) 4.47 (1.78-5.38) K/mm3 Lymph # (Auto) 1.13 L (1.32-3.57) K/mm3 Stanley # (Auto) 0.91 H (0.30-0.82) K/mm3 Eos # (Auto) 0.02 L (0.04-0.54) K/mm3 Baso # (Auto) 0.01 (0.01-0.08) K/mm3 Puncture Site Lt radial ABG pH 7.40 (7.35-7.45) ABG pCO2 42.9 (35.0-45.0) mmHg ABG pO2 68.0 L (80.0-100.0) mmHg ABG HCO3 26.0 (22.0-26.0) meq/L ABG O2 Saturation 93.4 L (96.0-97.0) % ABG Base Excess 1.4 (-2-2.0) Navi Test Positive A-a Gradient 262 mmHg O2 Delivery Device Ventilator FiO2 60.00 (21.00-100.00) % Tidal Volume 600.0 cc PEEP 10.0 cmH20 Sodium (136-145) mEq/L Potassium (3.5-5.1) mEq/L Chloride (98-107) mEq/L Carbon Dioxide (21-32) mEq/L Anion Gap (5-15) BUN (7-18) mg/dL Creatinine (0.7-1.3) mg/dL Est Cr Clr Drug Dosing mL/min Estimated GFR (MDRD) (>60) mL/min BUN/Creatinine Ratio (14-18) Glucose (80-115) mg/dL POC Glucose 86 (80-115) mg/dL Calcium (8.5-10.1) mg/dL Magnesium (1.8-2.4) mg/dl C-Reactive Protein (<1.0) mg/dL 08/02/17 08/02/17 08/02/17 Range/Units 05:40 06:37 11:38 WBC (4.23-9.07) K/mm3 RBC (4.63-6.08) M/mm3 Hgb (13.7-17.5) gm/L Hct (40.1-51.0) % MCV (79.0-92.2) fl MCH (25.7-32.2) pg MCHC (32.2-35.5) g/dl RDW Std Deviation (35.1-43.9) fL Plt Count (163-337) K/mm3 MPV (9.4-12.3) fl Neut % (Auto) (34.0-67.9) % Lymph % (Auto) (21.8-53.1) % Stanley % (Auto) (5.3-12.2) % Eos % (Auto) (0.8-7.0) Baso % (Auto) (0.1-1.2) % Neut # (Auto) (1.78-5.38) K/mm3 Lymph # (Auto) (1.32-3.57) K/mm3 Stanley # (Auto) (0.30-0.82) K/mm3 Eos # (Auto) (0.04-0.54) K/mm3 Baso # (Auto) (0.01-0.08) K/mm3 Puncture Site ABG pH (7.35-7.45) ABG pCO2 (35.0-45.0) mmHg ABG pO2 (80.0-100.0) mmHg ABG HCO3 (22.0-26.0) meq/L ABG O2 Saturation (96.0-97.0) % ABG Base Excess (-2-2.0) Navi Test A-a Gradient mmHg O2 Delivery Device FiO2 (21.00-100.00) % Tidal Volume cc PEEP cmH20 Sodium 143 (136-145) mEq/L Potassium 3.9 (3.5-5.1) mEq/L Chloride 107 (98-107) mEq/L Carbon Dioxide 27 (21-32) mEq/L Anion Gap 12.9 (5-15) BUN 15 (7-18) mg/dL Creatinine 1.3 (0.7-1.3) mg/dL Est Cr Clr Drug Dosing 53.67 mL/min Estimated GFR (MDRD) 56 (>60) mL/min BUN/Creatinine Ratio 11.5 L (14-18) Glucose 114 (80-115) mg/dL POC Glucose 108 101 (80-115) mg/dL Calcium 8.4 L (8.5-10.1) mg/dL Magnesium 2.1 (1.8-2.4) mg/dl C-Reactive Protein 11.8 H* (<1.0) mg/dL Med Orders - Current: Current Medications Acetaminophen (Tylenol) 650 mg PO Q4H PRN PRN Reason: Pain (Mild 1-3)/fever Albuterol (Proventil Neb Soln) 2.5 mg NEB Q4HRRT PRN PRN Reason: Shortness of Breath Last Admin: 08/01/17 04:31 Dose: 2.5 mg Albuterol/Ipratropium (Duoneb 3.0-0.5 Mg/3 Ml) 3 ml NEB QIDRT [facility] Last Admin: 08/02/17 15:14 Dose: 3 ml Allopurinol (Zyloprim) 350 mg PO DAILY [facility] Last Admin: 08/02/17 10:27 Dose: Not Given Clonidine HCl (Catapres) 0.1 mg PO Q12HR [facility] Last Admin: 08/02/17 10:16 Dose: Not Given Enoxaparin Sodium (Lovenox) 40 mg SUBCUT DAILY [facility] Last Admin: 08/02/17 10:18 Dose: 40 mg Famotidine (Pepcid) 20 mg IVPUSH BID [facility] Last Admin: 08/02/17 10:18 Dose: 20 mg Folic Acid (Folic Acid) 1 mg IV DAILY [facility] Last Admin: 08/02/17 10:17 Dose: 1 mg Haloperidol Lactate (Haldol) 4 mg IVPUSH Q6H PRN PRN Reason: restlessness Hydralazine HCl (Apresoline) 20 mg IVPUSH Q6H PRN PRN Reason: Hypertension Last Admin: 07/31/17 10:01 Dose: 20 mg Levofloxacin/Dextrose 750 mg/ (Premix) 150 mls @ 100 mls/hr IV Q24H [facility] Last Admin: 08/01/17 20:30 Dose: 100 mls/hr Potassium Chloride/Sodium Chloride (Normal Saline With 20 Meq Kcl) 1,000 mls @ 75 mls/hr IV ASDIRECTED [facility] Last Admin: 08/02/17 13:59 Dose: 75 mls/hr Propofol (Diprivan 100 Ml) 100 mls @ 17.16 mls/hr IV TITRATE [facility]; 20 MCG/KG/MIN PRN Reason: Protocol Last Titration: 08/02/17 16:16 Dose: 70 mcg/kg/min, 60.06 mls/hr Norepinephrine Bitartrate 4 mg (/ Dextrose/Water) 250 mls @ 7.5 mls/hr IV TITRATE [facility]; 2 MCG/MIN PRN Reason: Protocol Dextrose/Sodium Chloride (Dextrose 5%-Normal Saline) 1,000 mls @ 50 mls/hr IV ASDIRECTED [facility] Last Admin: 08/02/17 13:59 Dose: 50 mls/hr Lorazepam (Ativan) 0 mg IVPUSH Q1H PRN; Protocol PRN Reason: withdrawl Last Admin: 07/31/17 18:45 Dose: 2 mg Lorazepam (Ativan) 1 mg IVPUSH Q4H PRN PRN Reason: Anxiety Last Admin: 07/31/17 11:03 Dose: 1 mg Metoprolol Tartrate (Lopressor) 5 mg IVPUSH Q4H PRN PRN Reason: Tachycardia Last Admin: 07/31/17 17:26 Dose: 5 mg Mometasone Furoate/Formoterol Fumar (Dulera 100-5 Mcg) 0 puff IH BIDRT [facility] Last Admin: 08/02/17 10:28 Dose: Not Given Multivitamins (Thera) 1 each PO DAILY [facility] Last Admin: 08/02/17 10:16 Dose: Not Given Ondansetron HCl (Zofran Odt) 4 mg PO Q6H PRN PRN Reason: nausea, able to take PO Ondansetron HCl (Zofran) 4 mg IV Q6H PRN PRN Reason: Nausea/Vomiting Quetiapine Fumarate (Seroquel) 50 mg PO BEDTIME [facility] Last Admin: 08/01/17 20:44 Dose: Not Given Simvastatin (Zocor) 20 mg PO BEDTIME [facility] Last Admin: 08/01/17 20:44 Dose: Not Given Tamsulosin HCl (Flomax) 0.4 mg PO DAILY [facility] Last Admin: 08/02/17 10:16 Dose: Not Given Temazepam (Restoril) 15 mg PO BEDTIME PRN PRN Reason: Sleep Last Admin: 07/30/17 21:19 Dose: 15 mg Thiamine HCl (Vitamin B-1) 100 mg IV DAILY [facility] Last Admin: 08/02/17 10:19 Dose: 100 mg Discontinued Medications Albuterol/Ipratropium (Duoneb 3.0-0.5 Mg/3 Ml) 3 ml NEB Q4H PRN PRN Reason: Shortness Of Breath/wheezing Last Admin: 07/31/17 15:50 Dose: 3 ml Budesonide/Formoterol Fumarate (Symbicort 80-4.5 Mcg) 0 gm INH BIDRT [facility] Famotidine (Pepcid) 20 mg PO BID [facility] Last Admin: 07/31/17 09:12 Dose: Not Given Folic Acid (Folic Acid) 1 mg PO DAILY [facility] Last Admin: 07/31/17 09:12 Dose: Not Given Furosemide (Lasix) 40 mg IVPUSH NOW ONE Stop: 08/01/17 15:04 Last Admin: 08/01/17 15:34 Dose: 40 mg Furosemide (Lasix) 40 mg IVPUSH NOW ONE Stop: 08/02/17 05:01 Last Admin: 08/02/17 04:37 Dose: 40 mg Haloperidol Lactate (Haldol) 5 mg IVPUSH Q4H PRN PRN Reason: Anxiety Last Admin: 07/31/17 11:00 Dose: 5 mg Haloperidol Lactate (Haldol) 7 mg IVPUSH Q2H PRN PRN Reason: Anxiety Last Admin: 07/31/17 17:47 Dose: 7 mg Haloperidol Lactate (Haldol) Confirm Administered Dose 5 mg .ROUTE .STK-MED ONE Stop: 07/31/17 18:27 Last Admin: 07/31/17 19:01 Dose: Not Given Haloperidol Lactate (Haldol) 5 mg IVPUSH ONETIME ONE Stop: 07/31/17 18:27 Last Admin: 07/31/17 18:27 Dose: 5 mg Hydralazine HCl (Apresoline) 10 mg PO Q6H PRN PRN Reason: Hypertension Sodium Chloride (Normal Saline) 1,000 mls @ 75 mls/hr IV ASDIRECTED [facility] Last Admin: 07/31/17 20:20 Dose: 150 mls/hr Propofol (Diprivan 100 Ml) Confirm Administered Dose 100 mls @ as directed .ROUTE .STK-MED ONE Stop: 07/31/17 19:26 Last Admin: 07/31/17 20:55 Dose: Not Given Iopamidol (Isovue-370 (76%)) 100 ml IVPUSH ONETIME ONE Stop: 07/30/17 16:56 Last Admin: 07/30/17 17:35 Dose: 80 ml Ketamine HCl (Ketalar) 100 mg IV ONETIME ONE Stop: 07/31/17 18:58 Last Admin: 07/31/17 18:57 Dose: 100 mg Ketamine HCl (Ketalar) 500 mg .ROUTE .STK-MED ONE Stop: 08/01/17 22:23 Lorazepam (Ativan) 0 mg IVPUSH Q4H PRN; Protocol PRN Reason: withdrawl Last Admin: 07/30/17 21:20 Dose: 1 mg Lorazepam (Ativan) 2 mg IVPUSH Q4H PRN PRN Reason: Seizures Lorazepam (Ativan) 1 mg PO Q4H PRN PRN Reason: anxiety Naloxone HCl (Narcan) 0.1 mg IVPUSH ONETIME ONE Stop: 07/30/17 16:54 Last Admin: 07/30/17 17:57 Dose: Not Given Naloxone HCl (Narcan) 0.2 mg IVPUSH ONETIME ONE Stop: 07/30/17 16:59 Last Admin: 07/30/17 17:01 Dose: 0.2 mg Naloxone HCl (Narcan) 0.2 mg IVPUSH ONETIME ONE Stop: 07/30/17 17:00 Last Admin: 07/30/17 17:10 Dose: Not Given Naloxone HCl (Narcan) 0.2 mg IVPUSH ONETIME ONE Stop: 07/30/17 17:14 Last Admin: 07/30/17 17:14 Dose: 0.2 mg Propofol (Diprivan 20 Ml) 100 mg IVPUSH ONETIME ONE Stop: 07/31/17 19:19 Last Admin: 07/31/17 19:18 Dose: 100 mg Propofol (Diprivan 20 Ml) 200 mg .ROUTE .STK-MED ONE Stop: 08/01/17 22:23 Sodium Chloride (Saline Flush) 10 ml FLUSH ONETIME ONE Stop: 07/30/17 16:56 Last Admin: 07/30/17 17:35 Dose: 10 ml Thiamine HCl (Vitamin B-1) 100 mg PO DAILY HANNAH Last Admin: 07/31/17 09:13 Dose: Not Given - Exam Quality Assessment: Supplemental Oxygen, DVT Prophylaxis General: Sedated HEENT: Pupils Equal, Pupils Reactive Neck: Trachea Midline Lungs: Normal Respiratory Effort, Decreased Breath Sounds Cardiovascular: Regular Rate, Regular Rhythm GI/Abdominal Exam: Normal Bowel Sounds, Soft, Non-Tender, No Organomegaly, No Distention (Male) Exam: Deferred Back Exam: Normal Inspection Extremities: Pedal Edema (trace) Skin: Warm Neurological: Other (sedated) - Problem List Review Problem List Initiated/Reviewed/Updated: Yes - My Orders Last 24 Hours: My Active Orders 08/01/17 18:15 Dextrose 5%-0.9% NaCl [Dextrose 5%-Normal Saline] 1,000 ml IV ASDIRECTED 08/02/17 18:30 ABG [BLOOD GAS ARTERIAL] [BG] Routine 08/03/17 06:00 CXR [Chest 1V Frontal] [CR] DAILY 08/04/17 06:00 CXR [Chest 1V Frontal] [CR] DAILY - Plan Plan:: I/P: Acute: Withdrawal Symptoms/DT - [facility] protocol -[facility] vent -sedation with propofol Alcohol Abuse - Acute on Chronic - He reportedly drinks regularly - He would not explain how much he drinks or when. 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 - Counseled on Substance Abuse, although pt. was not willing to discuss it - SA/Psych consult------>postponed, unable to participate, will attempt weaning parameters, 08/03/17. Chronic: Daughter does note he has sleep apnea and is on CPAP\\BiPAP, HLD, HTN, advanced lung disease. Plan: Admit to ICU MVI, Folic, Acid and Thiamine CIWA protocol Ativan for Abortive Seizure and Withdrawal Symptoms PRN meds for Withdrawal Symptoms Seizure Precautions SW/CM discharge planning SA/Psych consult Code Status:Full code. He does not have a PCP in Area Late rounds on 07/31/17 1830 hour: Patient became restless has required haldol and ativan with increasing frequency. Patient required the assistance of multiple healthcare providers including 6 nurses and 2 physicians. Hospitalist service provide care to the patient during his profound agitation/restless for 1 hour 15 minutes. Leather restraints were required, the patient could not be redirected and did not respond to the pharmaceutical agents which previously worked. He did not take oral meds yesterday. The patient received ketamine 100 mg IV for restlessness; he had O2 sats 70-84%; he was electively intubated and started on a propofol drip to sedation. See procedure not by Dr Del Toro 07/31/17 regarding the intubation. NB------>Collectively on the day of intubation (07/31/17), three family meetings occurred, time spent 60 minutes total, this does not include ICU care.
[2017-08-02] MEDS: Levofloxacin/Dextrose 5%-Water 750 MG in Premix Bag 1 BAG IV SCH (19:30)
[2017-08-02] MEDS: QUEtiapine 25 MG Tab PO SCH (23:01)
[2017-08-02] MEDS: Simvastatin 20 MG Tab PO SCH (23:02)
[2017-08-03] MEDS: NS + KCl 20mEq/L 1,000 ML IV SCH ×2 (02:59→16:49)
[2017-08-03] MEDS: Formoterol/Mometasone 100-5 MCG 8.8 GM Inhaler IH SCH ×2 (05:28→22:32)
[2017-08-03] MEDS: Albuterol/Ipratropium 3.0-0.5 MG/3 ML Neb Soln NEB SCH ×4 (05:29→20:32)
--- NOTE | 2017-08-03 07:25 | CR ---
Chest: Portable view of the chest was obtained. Comparison: Prior chest x-ray of 08/02/17. Tip of endotracheal tube lies between the clavicles and rene in satisfactory position. Nasogastric tube is again seen. Tip courses off the inferior edge of the film into the stomach. Slight increased atelectasis within the left mid and lower lung. Lungs otherwise are clear. Heart size and mediastinum are stable. Impression: 1. Stable position of endotracheal tube and nasogastric tube. 2. Slight increased atelectasis within the left mid and lower lung. 3. Other portions of the chest are stable. Diagnostic code #3
[2017-08-03] MEDS: Enoxaparin 40 MG/0.4 ML Syringe SUBCUT SCH (08:09)
[2017-08-03] MEDS: Thiamine 200 MG/2 ML MDV IV SCH (08:10)
[2017-08-03] MEDS: Folic Acid 50 MG/10 ML MDV IV SCH (08:12)
[2017-08-03] MEDS: Famotidine 20 MG/2 ML SDV IVPUSH SCH ×2 (08:14→21:04)
[2017-08-03] MEDS: Dextrose 5%-0.9% NaCl 1,000 ML IV SCH (09:59)
[2017-08-03] MEDS: Metoprolol Tartrate 5 MG/5 ML SDV IVPUSH PRN (10:13)
[2017-08-03] MEDS: Allopurinol 100 MG Tab PO SCH (10:42)
[2017-08-03] MEDS: cloNIDine 0.1 MG Tab PO SCH ×2 (10:42→20:28)
[2017-08-03] MEDS: Multivitamins,Therapeutic Tab PO SCH (10:42)
[2017-08-03] MEDS: Tamsulosin 0.4 MG Cap.ER PO SCH (10:42)
--- NOTE | 2017-08-03 11:18 | CT ---
Head CT Technique: Multiple axial sections through the brain were obtained. Intravenous contrast was not utilized. Comparison: Prior head CT study of 07/30/17. Findings: Ventricles along with basal cisterns and sulci over the convexities are within normal limits for the patient's age. No abnormal parenchymal densities are seen. No evidence of intracranial hemorrhage. No midline shift or mass effect is seen. Bone window settings were reviewed which show mild mucosal thickening within the ethmoid sinuses. Minimal mucosal thickening within sphenoid sinus with small amount of retained secretions being seen within the sphenoid sinus. Endotracheal tube and nasogastric tube are partially visualized. No acute calvarial abnormality is seen. Impression: 1. Sinus findings which are felt to be incidental. 2. No acute intracranial abnormality is identified. Diagnostic code #2
[2017-08-03] MEDS: Metoprolol Tartrate 5 MG/5 ML SDV IVPUSH SCH ×3 (13:50→22:17)
--- NOTE | 2017-08-03 16:17 | PCM.PN ---
- General Info Date of Service: 08/03/17 Functional Status: Reports: Urinating - Review of Systems General: Reports: No Symptoms HEENT: Reports: No Symptoms Pulmonary: Reports: No Symptoms Cardiovascular: Reports: No Symptoms Gastrointestinal: Reports: No Symptoms Genitourinary: Reports: No Symptoms Musculoskeletal: Reports: No Symptoms Skin: Reports: No Symptoms Neurological: Reports: No Symptoms Psychiatric: Reports: No Symptoms - Patient Data Vitals - Most Recent: Last Vital Signs Temp 37.1 C 08/03/17 13:00 Pulse 138 H 08/03/17 13:50 Resp 18 08/03/17 15:00 BP 124/79 08/03/17 15:00 Pulse Ox 95 08/03/17 15:39 Weight - Most Recent: 145.603 kg I&O - Last 24 Hours: Intake & Output 08/03/17 08/03/17 08/03/17 06:59 14:59 22:59 Intake Total 2270 3937 Output Total 475 445 Balance 1795 3492 Lab Results Last 24 Hours: Laboratory Results - last 24 hr 08/02/17 08/02/17 08/02/17 Range/Units 17:52 18:26 23:54 WBC (4.23-9.07) K/mm3 RBC (4.63-6.08) M/mm3 Hgb (13.7-17.5) gm/L Hct (40.1-51.0) % MCV (79.0-92.2) fl MCH (25.7-32.2) pg MCHC (32.2-35.5) g/dl RDW Std Deviation (35.1-43.9) fL Plt Count (163-337) K/mm3 MPV (9.4-12.3) fl Neut % (Auto) (34.0-67.9) % Lymph % (Auto) (21.8-53.1) % Walsh % (Auto) (5.3-12.2) % Eos % (Auto) (0.8-7.0) Baso % (Auto) (0.1-1.2) % Neut # (Auto) (1.78-5.38) K/mm3 Lymph # (Auto) (1.32-3.57) K/mm3 Walsh # (Auto) (0.30-0.82) K/mm3 Eos # (Auto) (0.04-0.54) K/mm3 Baso # (Auto) (0.01-0.08) K/mm3 Puncture Site Lt radial ABG pH 7.35 (7.35-7.45) ABG pCO2 48.6 H (35.0-45.0) mmHg ABG pO2 75.0 L (80.0-100.0) mmHg ABG HCO3 26.4 H (22.0-26.0) meq/L ABG O2 Saturation 94.7 L (96.0-97.0) % ABG Base Excess 0.8 (-2-2.0) A-a Gradient 248 mmHg O2 Delivery Device Ventilator FiO2 0.60 L (21.00-100.00) % Tidal Volume 650.0 cc PEEP 10.0 cmH20 Sodium (136-145) mEq/L Potassium (3.5-5.1) mEq/L Chloride (98-107) mEq/L Carbon Dioxide (21-32) mEq/L Anion Gap (5-15) BUN (7-18) mg/dL Creatinine (0.7-1.3) mg/dL Est Cr Clr Drug Dosing mL/min Estimated GFR (MDRD) (>60) mL/min BUN/Creatinine Ratio (14-18) Glucose (80-115) mg/dL POC Glucose 103 106 (80-115) mg/dL Calcium (8.5-10.1) mg/dL Magnesium (1.8-2.4) mg/dl C-Reactive Protein (<1.0) mg/dL Lipase (73-393) U/L 08/03/17 08/03/17 08/03/17 Range/Units 06:15 06:15 06:15 WBC 6.20 (4.23-9.07) K/mm3 RBC 4.04 L (4.63-6.08) M/mm3 Hgb 13.2 L (13.7-17.5) gm/L Hct 40.0 L (40.1-51.0) % MCV 99.0 H (79.0-92.2) fl MCH 32.7 H (25.7-32.2) pg MCHC 33.0 (32.2-35.5) g/dl RDW Std Deviation 52.4 H (35.1-43.9) fL Plt Count 207 (163-337) K/mm3 MPV 9.3 L (9.4-12.3) fl Neut % (Auto) 68.3 H (34.0-67.9) % Lymph % (Auto) 17.1 L (21.8-53.1) % Walsh % (Auto) 14.0 H (5.3-12.2) % Eos % (Auto) 0.2 L (0.8-7.0) Baso % (Auto) 0.2 (0.1-1.2) % Neut # (Auto) 4.24 (1.78-5.38) K/mm3 Lymph # (Auto) 1.06 L (1.32-3.57) K/mm3 Walsh # (Auto) 0.87 H (0.30-0.82) K/mm3 Eos # (Auto) 0.01 L (0.04-0.54) K/mm3 Baso # (Auto) 0.01 (0.01-0.08) K/mm3 Puncture Site ABG pH (7.35-7.45) ABG pCO2 (35.0-45.0) mmHg ABG pO2 (80.0-100.0) mmHg ABG HCO3 (22.0-26.0) meq/L ABG O2 Saturation (96.0-97.0) % ABG Base Excess (-2-2.0) A-a Gradient mmHg O2 Delivery Device FiO2 (21.00-100.00) % Tidal Volume cc PEEP cmH20 Sodium 142 (136-145) mEq/L Potassium 3.9 (3.5-5.1) mEq/L Chloride 109 H (98-107) mEq/L Carbon Dioxide 25 (21-32) mEq/L Anion Gap 11.9 (5-15) BUN 13 (7-18) mg/dL Creatinine 1.2 (0.7-1.3) mg/dL Est Cr Clr Drug Dosing 58.14 mL/min Estimated GFR (MDRD) > 60 (>60) mL/min BUN/Creatinine Ratio 10.8 L (14-18) Glucose 125 H (80-115) mg/dL POC Glucose (80-115) mg/dL Calcium 8.3 L (8.5-10.1) mg/dL Magnesium 2.2 (1.8-2.4) mg/dl C-Reactive Protein 16.3 H* (<1.0) mg/dL Lipase 110 (73-393) U/L 08/03/17 08/03/17 08/03/17 Range/Units 06:38 10:30 12:22 WBC (4.23-9.07) K/mm3 RBC (4.63-6.08) M/mm3 Hgb (13.7-17.5) gm/L Hct (40.1-51.0) % MCV (79.0-92.2) fl MCH (25.7-32.2) pg MCHC (32.2-35.5) g/dl RDW Std Deviation (35.1-43.9) fL Plt Count (163-337) K/mm3 MPV (9.4-12.3) fl Neut % (Auto) (34.0-67.9) % Lymph % (Auto) (21.8-53.1) % Walsh % (Auto) (5.3-12.2) % Eos % (Auto) (0.8-7.0) Baso % (Auto) (0.1-1.2) % Neut # (Auto) (1.78-5.38) K/mm3 Lymph # (Auto) (1.32-3.57) K/mm3 Walsh # (Auto) (0.30-0.82) K/mm3 Eos # (Auto) (0.04-0.54) K/mm3 Baso # (Auto) (0.01-0.08) K/mm3 Puncture Site Lt radial ABG pH 7.37 (7.35-7.45) ABG pCO2 41.2 (35.0-45.0) mmHg ABG pO2 63.0 L (80.0-100.0) mmHg ABG HCO3 23.3 (22.0-26.0) meq/L ABG O2 Saturation 91.0 L (96.0-97.0) % ABG Base Excess -1.4 (-2-2.0) A-a Gradient 270 mmHg O2 Delivery Device Ventilator FiO2 60.00 (21.00-100.00) % Tidal Volume 650.0 cc PEEP 10.0 cmH20 Sodium (136-145) mEq/L Potassium (3.5-5.1) mEq/L Chloride (98-107) mEq/L Carbon Dioxide (21-32) mEq/L Anion Gap (5-15) BUN (7-18) mg/dL Creatinine (0.7-1.3) mg/dL Est Cr Clr Drug Dosing mL/min Estimated GFR (MDRD) (>60) mL/min BUN/Creatinine Ratio (14-18) Glucose (80-115) mg/dL POC Glucose 104 108 (80-115) mg/dL Calcium (8.5-10.1) mg/dL Magnesium (1.8-2.4) mg/dl C-Reactive Protein (<1.0) mg/dL Lipase (73-393) U/L Med Orders - Current: Current Medications Acetaminophen (Tylenol) 650 mg PO Q4H PRN PRN Reason: Pain (Mild 1-3)/fever Albuterol (Proventil Neb Soln) 2.5 mg NEB Q4HRRT PRN PRN Reason: Shortness of Breath Last Admin: 08/01/17 04:31 Dose: 2.5 mg Albuterol/Ipratropium (Duoneb 3.0-0.5 Mg/3 Ml) 3 ml NEB QIDRT [facility] Last Admin: 08/03/17 15:39 Dose: 3 ml Allopurinol (Zyloprim) 350 mg PO DAILY [facility] Last Admin: 08/03/17 10:42 Dose: Not Given Clonidine HCl (Catapres) 0.1 mg PO Q12HR [facility] Last Admin: 08/03/17 10:42 Dose: Not Given Enoxaparin Sodium (Lovenox) 40 mg SUBCUT DAILY [facility] Last Admin: 08/03/17 08:09 Dose: 40 mg Famotidine (Pepcid) 20 mg IVPUSH BID [facility] Last Admin: 08/03/17 08:14 Dose: 20 mg Folic Acid (Folic Acid) 1 mg IV DAILY [facility] Last Admin: 08/03/17 08:12 Dose: 1 mg Haloperidol Lactate (Haldol) 4 mg IVPUSH Q6H PRN PRN Reason: restlessness Hydralazine HCl (Apresoline) 20 mg IVPUSH Q6H PRN PRN Reason: Hypertension Last Admin: 07/31/17 10:01 Dose: 20 mg Levofloxacin/Dextrose 750 mg/ (Premix) 150 mls @ 100 mls/hr IV Q24H [facility] Last Admin: 08/02/17 19:30 Dose: 100 mls/hr Potassium Chloride/Sodium Chloride (Normal Saline With 20 Meq Kcl) 1,000 mls @ 75 mls/hr IV ASDIRECTED [facility] Last Admin: 08/03/17 02:59 Dose: 75 mls/hr Propofol (Diprivan 100 Ml) 100 mls @ 17.16 mls/hr IV TITRATE [facility]; 20 MCG/KG/MIN PRN Reason: Protocol Last Admin: 08/03/17 14:13 Dose: 65 mcg/kg/min, 55.77 mls/hr Norepinephrine Bitartrate 4 mg (/ Dextrose/Water) 250 mls @ 7.5 mls/hr IV TITRATE [facility]; 2 MCG/MIN PRN Reason: Protocol Dextrose/Sodium Chloride (Dextrose 5%-Normal Saline) 1,000 mls @ 50 mls/hr IV ASDIRECTED [facility] Last Admin: 08/02/17 13:59 Dose: 50 mls/hr Lorazepam (Ativan) 0 mg IVPUSH Q1H PRN; Protocol PRN Reason: withdrawl Last Admin: 07/31/17 18:45 Dose: 2 mg Lorazepam (Ativan) 1 mg IVPUSH Q4H PRN PRN Reason: Anxiety Last Admin: 07/31/17 11:03 Dose: 1 mg Metoprolol Tartrate (Lopressor) 5 mg IVPUSH Q4H PRN PRN Reason: Tachycardia Last Admin: 08/03/17 10:13 Dose: 5 mg Metoprolol Tartrate (Lopressor) 5 mg IVPUSH Q4H [facility] Last Admin: 08/03/17 13:50 Dose: 5 mg Mometasone Furoate/Formoterol Fumar (Dulera 100-5 Mcg) 0 puff IH BIDRT [facility] Last Admin: 08/03/17 05:28 Dose: Not Given Multivitamins (Thera) 1 each PO DAILY [facility] Last Admin: 08/03/17 10:42 Dose: Not Given Ondansetron HCl (Zofran Odt) 4 mg PO Q6H PRN PRN Reason: nausea, able to take PO Ondansetron HCl (Zofran) 4 mg IV Q6H PRN PRN Reason: Nausea/Vomiting Quetiapine Fumarate (Seroquel) 50 mg PO BEDTIME [facility] Last Admin: 08/02/17 23:01 Dose: Not Given Simvastatin (Zocor) 20 mg PO BEDTIME [facility] Last Admin: 08/02/17 23:02 Dose: Not Given Tamsulosin HCl (Flomax) 0.4 mg PO DAILY [facility] Last Admin: 08/03/17 10:42 Dose: Not Given Temazepam (Restoril) 15 mg PO BEDTIME PRN PRN Reason: Sleep Last Admin: 07/30/17 21:19 Dose: 15 mg Thiamine HCl (Vitamin B-1) 100 mg IV DAILY [facility] Last Admin: 08/03/17 08:10 Dose: 100 mg Discontinued Medications Albuterol/Ipratropium (Duoneb 3.0-0.5 Mg/3 Ml) 3 ml NEB Q4H PRN PRN Reason: Shortness Of Breath/wheezing Last Admin: 07/31/17 15:50 Dose: 3 ml Budesonide/Formoterol Fumarate (Symbicort 80-4.5 Mcg) 0 gm INH BIDRT [facility] Famotidine (Pepcid) 20 mg PO BID [facility] Last Admin: 07/31/17 09:12 Dose: Not Given Folic Acid (Folic Acid) 1 mg PO DAILY [facility] Last Admin: 07/31/17 09:12 Dose: Not Given Furosemide (Lasix) 40 mg IVPUSH NOW ONE Stop: 08/01/17 15:04 Last Admin: 08/01/17 15:34 Dose: 40 mg Furosemide (Lasix) 40 mg IVPUSH NOW ONE Stop: 08/02/17 05:01 Last Admin: 08/02/17 04:37 Dose: 40 mg Haloperidol Lactate (Haldol) 5 mg IVPUSH Q4H PRN PRN Reason: Anxiety Last Admin: 07/31/17 11:00 Dose: 5 mg Haloperidol Lactate (Haldol) 7 mg IVPUSH Q2H PRN PRN Reason: Anxiety Last Admin: 07/31/17 17:47 Dose: 7 mg Haloperidol Lactate (Haldol) Confirm Administered Dose 5 mg .ROUTE .STK-MED ONE Stop: 07/31/17 18:27 Last Admin: 07/31/17 19:01 Dose: Not Given Haloperidol Lactate (Haldol) 5 mg IVPUSH ONETIME ONE Stop: 07/31/17 18:27 Last Admin: 07/31/17 18:27 Dose: 5 mg Hydralazine HCl (Apresoline) 10 mg PO Q6H PRN PRN Reason: Hypertension Sodium Chloride (Normal Saline) 1,000 mls @ 75 mls/hr IV ASDIRECTED [facility] Last Admin: 07/31/17 20:20 Dose: 150 mls/hr Propofol (Diprivan 100 Ml) Confirm Administered Dose 100 mls @ as directed .ROUTE .STK-MED ONE Stop: 07/31/17 19:26 Last Admin: 07/31/17 20:55 Dose: Not Given Iopamidol (Isovue-370 (76%)) 100 ml IVPUSH ONETIME ONE Stop: 07/30/17 16:56 Last Admin: 07/30/17 17:35 Dose: 80 ml Ketamine HCl (Ketalar) 100 mg IV ONETIME ONE Stop: 07/31/17 18:58 Last Admin: 07/31/17 18:57 Dose: 100 mg Ketamine HCl (Ketalar) 500 mg .ROUTE .STK-MED ONE Stop: 08/01/17 22:23 Lorazepam (Ativan) 0 mg IVPUSH Q4H PRN; Protocol PRN Reason: withdrawl Last Admin: 07/30/17 21:20 Dose: 1 mg Lorazepam (Ativan) 2 mg IVPUSH Q4H PRN PRN Reason: Seizures Lorazepam (Ativan) 1 mg PO Q4H PRN PRN Reason: anxiety Naloxone HCl (Narcan) 0.1 mg IVPUSH ONETIME ONE Stop: 07/30/17 16:54 Last Admin: 07/30/17 17:57 Dose: Not Given Naloxone HCl (Narcan) 0.2 mg IVPUSH ONETIME ONE Stop: 07/30/17 16:59 Last Admin: 07/30/17 17:01 Dose: 0.2 mg Naloxone HCl (Narcan) 0.2 mg IVPUSH ONETIME ONE Stop: 07/30/17 17:00 Last Admin: 07/30/17 17:10 Dose: Not Given Naloxone HCl (Narcan) 0.2 mg IVPUSH ONETIME ONE Stop: 07/30/17 17:14 Last Admin: 07/30/17 17:14 Dose: 0.2 mg Propofol (Diprivan 20 Ml) 100 mg IVPUSH ONETIME ONE Stop: 07/31/17 19:19 Last Admin: 07/31/17 19:18 Dose: 100 mg Propofol (Diprivan 20 Ml) 200 mg .ROUTE .STK-MED ONE Stop: 08/01/17 22:23 Sodium Chloride (Saline Flush) 10 ml FLUSH ONETIME ONE Stop: 07/30/17 16:56 Last Admin: 07/30/17 17:35 Dose: 10 ml Thiamine HCl (Vitamin B-1) 100 mg PO DAILY [facility] Last Admin: 07/31/17 09:13 Dose: Not Given - Exam Quality Assessment: Supplemental Oxygen, DVT Prophylaxis General: Sedated HEENT: Pupils Equal, Pupils Reactive Neck: Trachea Midline Lungs: Normal Respiratory Effort, Decreased Breath Sounds Cardiovascular: Regular Rate, Irregular Rhythm GI/Abdominal Exam: Normal Bowel Sounds, Soft, Non-Tender, No Organomegaly, No Distention (Male) Exam: Deferred Back Exam: Normal Inspection Extremities: Normal Inspection Skin: Warm Neurological: No New Focal Deficit Psy/Mental Status: Other (sedated on mech vent) - Problem List Review Problem List Initiated/Reviewed/Updated: Yes - My Orders Last 24 Hours: My Active Orders 08/03/17 08:00 RT Ventilator Weaning [RC] AMPROC 08/03/17 10:30 RT Arterial Blood Gases, ABG [RC] Click to Edit 08/03/17 11:02 SCD [Sequential Compression Device] [OM.PC] Routine 08/03/17 11:03 Antiembolic Devices [RC] PER UNIT ROUTINE 08/03/17 14:00 Metoprolol Tartrate [Lopressor] 5 mg IVPUSH Q4H 08/04/17 06:00 CXR [Chest 1V Frontal] [CR] DAILY 08/04/17 06:30 ABG [BLOOD GAS ARTERIAL] [BG] Urgent 08/04/17 08:00 Echo Comp wo Cont [US] Routine - Plan Plan:: I/P: Acute: Withdrawal Symptoms/DT - CIWAA protocol -mech vent -sedation with propofol Elective mech vent, Day 3--->failed weaning. PAF-->returned to sinus rhythm Alcohol Abuse - Acute on Chronic - He reportedly drinks regularly - He would not explain how much he drinks or when. 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 - Counseled on Substance Abuse, although pt. was not willing to discuss it - SA/Psych consult------>postponed, unable to participate, will attempt weaning parameters, 08/03/17. Chronic: Daughter does note he has sleep apnea and is on CPAP\\BiPAP, HLD, HTN, advanced lung disease. Plan: Admit to ICU MVI, Folic, Acid and Thiamine CIWA protocol Ativan for Abortive Seizure and Withdrawal Symptoms PRN meds for Withdrawal Symptoms Seizure Precautions SW/CM discharge planning SA/Psych consult Code Status:Full code. He does not have a PCP in Area
[2017-08-03] MEDS ORDERED: 50% Dextrose in Water 50 ML Syringe IVPUSH PRN (16:27)
[2017-08-03] MEDS ORDERED: Insulin Aspart 100 Units/ML 3 ML Pen SUBCUT SCH (16:30)
[2017-08-03] MEDS: methylPREDNISolone Sodium Succinate 40 MG/1 ML SDV IVPUSH SCH (16:43)
[2017-08-03] MEDS: Insulin Aspart 100 Units/ML 3 ML Pen SUBCUT SCH (18:01)
[2017-08-03] MEDS: Levofloxacin/Dextrose 5%-Water 750 MG in Premix Bag 1 BAG IV SCH (20:00)
[2017-08-03] MEDS: QUEtiapine 25 MG Tab PO SCH (20:29)
[2017-08-03] MEDS: Simvastatin 20 MG Tab PO SCH (20:29)
[2017-08-04] MEDS: Insulin Aspart 100 Units/ML 3 ML Pen SUBCUT SCH ×4 (00:37→19:56)
[2017-08-04] MEDS: Metoprolol Tartrate 5 MG/5 ML SDV IVPUSH SCH ×5 (02:09→22:31)
[2017-08-04] MEDS: methylPREDNISolone Sodium Succinate 40 MG/1 ML SDV IVPUSH SCH ×2 (04:51→19:09)
[2017-08-04] MEDS: Albuterol/Ipratropium 3.0-0.5 MG/3 ML Neb Soln NEB SCH ×4 (05:16→20:25)
[2017-08-04] MEDS: Dextrose 5%-0.9% NaCl 1,000 ML IV SCH (05:44)
[2017-08-04] MEDS: NS + KCl 20mEq/L 1,000 ML IV SCH ×2 (05:57→19:43)
--- NOTE | 2017-08-04 06:48 | CR ---
Chest: Portable view of the chest was obtained. Comparison: Prior chest x-ray of 08/03/17. Improved atelectasis within the left chest. Hazy increased density within the right lung base is seen most likely due to patient rotation. Heart size and mediastinum are stable. Nasogastric tube courses off the inferior edge of the film into the stomach. Endotracheal tube remains stable and located between the clavicles and rene. Impression: 1. Stable findings of endotracheal tube and nasogastric tube. 2. Improved atelectasis within the left chest. Diagnostic code #2
[2017-08-04] MEDS: Formoterol/Mometasone 100-5 MCG 8.8 GM Inhaler IH SCH ×2 (09:15→22:35)
[2017-08-04] MEDS: LORazepam 2 MG/ML MDV IVPUSH PRN ×2 (09:25→23:58)
--- NOTE | 2017-08-04 10:19 | PCM.PN ---
- General Info Date of Service: 08/04/17 Functional Status: Reports: Urinating, Other (hardy) - Review of Systems General: Reports: No Symptoms HEENT: Reports: No Symptoms Pulmonary: Reports: No Symptoms Cardiovascular: Reports: No Symptoms Gastrointestinal: Reports: No Symptoms Genitourinary: Reports: No Symptoms Musculoskeletal: Reports: No Symptoms Skin: Reports: No Symptoms Neurological: Reports: No Symptoms Psychiatric: Reports: No Symptoms - Patient Data Vitals - Most Recent: Last Vital Signs Temp 37.3 C 08/04/17 07:56 Pulse 77 08/04/17 07:56 Resp 39 H 08/04/17 09:33 BP 148/85 H 08/04/17 07:56 Pulse Ox 90 L 08/04/17 09:33 Weight - Most Recent: 147.055 kg I&O - Last 24 Hours: Intake & Output 08/03/17 08/04/17 08/04/17 22:59 06:59 14:59 Intake Total 0 2543 Output Total 725 645 150 Balance -725 1898 -150 Lab Results Last 24 Hours: Laboratory Results - last 24 hr 08/03/17 08/03/17 08/03/17 Range/Units 06:15 10:30 12:22 WBC (4.23-9.07) K/mm3 RBC (4.63-6.08) M/mm3 Hgb (13.7-17.5) gm/L Hct (40.1-51.0) % MCV (79.0-92.2) fl MCH (25.7-32.2) pg MCHC (32.2-35.5) g/dl RDW Std Deviation (35.1-43.9) fL Plt Count (163-337) K/mm3 MPV (9.4-12.3) fl Neut % (Auto) (34.0-67.9) % Lymph % (Auto) (21.8-53.1) % Powell % (Auto) (5.3-12.2) % Eos % (Auto) (0.8-7.0) Baso % (Auto) (0.1-1.2) % Neut # (Auto) (1.78-5.38) K/mm3 Lymph # (Auto) (1.32-3.57) K/mm3 Powell # (Auto) (0.30-0.82) K/mm3 Eos # (Auto) (0.04-0.54) K/mm3 Baso # (Auto) (0.01-0.08) K/mm3 Puncture Site Lt radial ABG pH 7.37 (7.35-7.45) ABG pCO2 41.2 (35.0-45.0) mmHg ABG pO2 63.0 L (80.0-100.0) mmHg ABG HCO3 23.3 (22.0-26.0) meq/L ABG O2 Saturation 91.0 L (96.0-97.0) % ABG Base Excess -1.4 (-2-2.0) Navi Test A-a Gradient 270 mmHg O2 Delivery Device Ventilator FiO2 60.00 (21.00-100.00) % Tidal Volume 650.0 cc PEEP 10.0 cmH20 Sodium (136-145) mEq/L Potassium (3.5-5.1) mEq/L Chloride (98-107) mEq/L Carbon Dioxide (21-32) mEq/L Anion Gap (5-15) BUN (7-18) mg/dL Creatinine (0.7-1.3) mg/dL Est Cr Clr Drug Dosing mL/min Estimated GFR (MDRD) (>60) mL/min BUN/Creatinine Ratio (14-18) Glucose (80-115) mg/dL POC Glucose 108 (80-115) mg/dL Calcium (8.5-10.1) mg/dL Magnesium (1.8-2.4) mg/dl C-Reactive Protein (<1.0) mg/dL Lipase 110 (73-393) U/L 08/03/17 08/04/17 08/04/17 Range/Units 17:58 00:33 05:39 WBC 5.68 (4.23-9.07) K/mm3 RBC 4.01 L (4.63-6.08) M/mm3 Hgb 12.9 L (13.7-17.5) gm/L Hct 39.6 L (40.1-51.0) % MCV 98.8 H (79.0-92.2) fl MCH 32.2 (25.7-32.2) pg MCHC 32.6 (32.2-35.5) g/dl RDW Std Deviation 51.4 H (35.1-43.9) fL Plt Count 201 (163-337) K/mm3 MPV 9.4 (9.4-12.3) fl Neut % (Auto) 66.1 (34.0-67.9) % Lymph % (Auto) 21.7 L (21.8-53.1) % Powell % (Auto) 11.8 (5.3-12.2) % Eos % (Auto) 0 L (0.8-7.0) Baso % (Auto) 0.2 (0.1-1.2) % Neut # (Auto) 3.76 (1.78-5.38) K/mm3 Lymph # (Auto) 1.23 L (1.32-3.57) K/mm3 Powell # (Auto) 0.67 (0.30-0.82) K/mm3 Eos # (Auto) 0.00 L (0.04-0.54) K/mm3 Baso # (Auto) 0.01 (0.01-0.08) K/mm3 Puncture Site ABG pH (7.35-7.45) ABG pCO2 (35.0-45.0) mmHg ABG pO2 (80.0-100.0) mmHg ABG HCO3 (22.0-26.0) meq/L ABG O2 Saturation (96.0-97.0) % ABG Base Excess (-2-2.0) Navi Test A-a Gradient mmHg O2 Delivery Device FiO2 (21.00-100.00) % Tidal Volume cc PEEP cmH20 Sodium (136-145) mEq/L Potassium (3.5-5.1) mEq/L Chloride (98-107) mEq/L Carbon Dioxide (21-32) mEq/L Anion Gap (5-15) BUN (7-18) mg/dL Creatinine (0.7-1.3) mg/dL Est Cr Clr Drug Dosing mL/min Estimated GFR (MDRD) (>60) mL/min BUN/Creatinine Ratio (14-18) Glucose (80-115) mg/dL POC Glucose 115 155 H (80-115) mg/dL Calcium (8.5-10.1) mg/dL Magnesium (1.8-2.4) mg/dl C-Reactive Protein (<1.0) mg/dL Lipase (73-393) U/L 08/04/17 08/04/17 08/04/17 Range/Units 05:39 05:56 06:05 WBC (4.23-9.07) K/mm3 RBC (4.63-6.08) M/mm3 Hgb (13.7-17.5) gm/L Hct (40.1-51.0) % MCV (79.0-92.2) fl MCH (25.7-32.2) pg MCHC (32.2-35.5) g/dl RDW Std Deviation (35.1-43.9) fL Plt Count (163-337) K/mm3 MPV (9.4-12.3) fl Neut % (Auto) (34.0-67.9) % Lymph % (Auto) (21.8-53.1) % Powell % (Auto) (5.3-12.2) % Eos % (Auto) (0.8-7.0) Baso % (Auto) (0.1-1.2) % Neut # (Auto) (1.78-5.38) K/mm3 Lymph # (Auto) (1.32-3.57) K/mm3 Powell # (Auto) (0.30-0.82) K/mm3 Eos # (Auto) (0.04-0.54) K/mm3 Baso # (Auto) (0.01-0.08) K/mm3 Puncture Site Lt radial ABG pH 7.37 (7.35-7.45) ABG pCO2 42.9 (35.0-45.0) mmHg ABG pO2 96.0 (80.0-100.0) mmHg ABG HCO3 23.9 (22.0-26.0) meq/L ABG O2 Saturation 91.3 L (96.0-97.0) % ABG Base Excess -0.9 (-2-2.0) Navi Test Positive A-a Gradient 138 mmHg O2 Delivery Device Ventilator FiO2 45.00 (21.00-100.00) % Tidal Volume 650.0 cc PEEP 10.0 cmH20 Sodium 142 (136-145) mEq/L Potassium 4.5 (3.5-5.1) mEq/L Chloride 111 H (98-107) mEq/L Carbon Dioxide 24 (21-32) mEq/L Anion Gap 11.5 (5-15) BUN 18 (7-18) mg/dL Creatinine 1.1 (0.7-1.3) mg/dL Est Cr Clr Drug Dosing 63.43 mL/min Estimated GFR (MDRD) > 60 (>60) mL/min BUN/Creatinine Ratio 16.4 (14-18) Glucose 138 H (80-115) mg/dL POC Glucose 146 H (80-115) mg/dL Calcium 8.3 L (8.5-10.1) mg/dL Magnesium 2.5 H (1.8-2.4) mg/dl C-Reactive Protein 21.4 H* (<1.0) mg/dL Lipase (73-393) U/L Med Orders - Current: Current Medications Acetaminophen (Tylenol) 650 mg PO Q4H PRN PRN Reason: Pain (Mild 1-3)/fever Albuterol (Proventil Neb Soln) 2.5 mg NEB Q4HRRT PRN PRN Reason: Shortness of Breath Last Admin: 08/01/17 04:31 Dose: 2.5 mg Albuterol/Ipratropium (Duoneb 3.0-0.5 Mg/3 Ml) 3 ml NEB QIDRT [facility] Last Admin: 08/04/17 09:14 Dose: 3 ml Allopurinol (Zyloprim) 350 mg PO DAILY [facility] Last Admin: 08/03/17 10:42 Dose: Not Given Clonidine HCl (Catapres) 0.1 mg PO Q12HR [facility] Last Admin: 08/03/17 20:28 Dose: Not Given Dextrose/Water (Dextrose 50% In Water) 50 ml IVPUSH ASDIRECTED PRN PRN Reason: Hypoglycemia Enoxaparin Sodium (Lovenox) 40 mg SUBCUT DAILY [facility] Last Admin: 08/03/17 08:09 Dose: 40 mg Famotidine (Pepcid) 20 mg IVPUSH BID [facility] Last Admin: 08/03/17 21:04 Dose: 20 mg Folic Acid (Folic Acid) 1 mg IV DAILY [facility] Last Admin: 08/03/17 08:12 Dose: 1 mg Haloperidol Lactate (Haldol) 4 mg IVPUSH Q6H PRN PRN Reason: restlessness Hydralazine HCl (Apresoline) 20 mg IVPUSH Q6H PRN PRN Reason: Hypertension Last Admin: 07/31/17 10:01 Dose: 20 mg Levofloxacin/Dextrose 750 mg/ (Premix) 150 mls @ 100 mls/hr IV Q24H [facility] Last Admin: 08/03/17 20:00 Dose: 100 mls/hr Potassium Chloride/Sodium Chloride (Normal Saline With 20 Meq Kcl) 1,000 mls @ 75 mls/hr IV ASDIRECTED [facility] Last Admin: 08/04/17 05:57 Dose: 75 mls/hr Propofol (Diprivan 100 Ml) 100 mls @ 17.16 mls/hr IV TITRATE [facility]; 20 MCG/KG/MIN PRN Reason: Protocol Last Titration: 08/04/17 09:43 Dose: 35 mcg/kg/min, 30.03 mls/hr Norepinephrine Bitartrate 4 mg (/ Dextrose/Water) 250 mls @ 7.5 mls/hr IV TITRATE [facility]; 2 MCG/MIN PRN Reason: Protocol Dextrose/Sodium Chloride (Dextrose 5%-Normal Saline) 1,000 mls @ 50 mls/hr IV ASDIRECTED [facility] Last Admin: 08/04/17 05:44 Dose: 50 mls/hr Insulin Aspart (Novolog) 0 unit SUBCUT Q6H [facility] PRN Reason: Protocol Last Admin: 08/04/17 05:56 Dose: Not Given Lorazepam (Ativan) 0 mg IVPUSH Q1H PRN; Protocol PRN Reason: withdrawl Last Admin: 07/31/17 18:45 Dose: 2 mg Lorazepam (Ativan) 1 mg IVPUSH Q4H PRN PRN Reason: Anxiety Last Admin: 08/04/17 09:25 Dose: 1 mg Methylprednisolone Sodium Succinate (Solu-Medrol) 80 mg IVPUSH Q12H [facility] Last Admin: 08/04/17 04:51 Dose: 80 mg Metoprolol Tartrate (Lopressor) 5 mg IVPUSH Q4H PRN PRN Reason: Tachycardia Last Admin: 08/03/17 10:13 Dose: 5 mg Metoprolol Tartrate (Lopressor) 5 mg IVPUSH Q4H [facility] Last Admin: 08/04/17 05:43 Dose: Not Given Mometasone Furoate/Formoterol Fumar (Dulera 100-5 Mcg) 0 puff IH BIDRT [facility] Last Admin: 08/04/17 09:15 Dose: Not Given Multivitamins (Thera) 1 each PO DAILY [facility] Last Admin: 08/03/17 10:42 Dose: Not Given Ondansetron HCl (Zofran Odt) 4 mg PO Q6H PRN PRN Reason: nausea, able to take PO Ondansetron HCl (Zofran) 4 mg IV Q6H PRN PRN Reason: Nausea/Vomiting Quetiapine Fumarate (Seroquel) 50 mg PO BEDTIME [facility] Last Admin: 08/03/17 20:29 Dose: Not Given Simvastatin (Zocor) 20 mg PO BEDTIME [facility] Last Admin: 08/03/17 20:29 Dose: Not Given Tamsulosin HCl (Flomax) 0.4 mg PO DAILY [facility] Last Admin: 08/03/17 10:42 Dose: Not Given Temazepam (Restoril) 15 mg PO BEDTIME PRN PRN Reason: Sleep Last Admin: 07/30/17 21:19 Dose: 15 mg Thiamine HCl (Vitamin B-1) 100 mg IV DAILY [facility] Last Admin: 08/03/17 08:10 Dose: 100 mg Discontinued Medications Albuterol/Ipratropium (Duoneb 3.0-0.5 Mg/3 Ml) 3 ml NEB Q4H PRN PRN Reason: Shortness Of Breath/wheezing Last Admin: 07/31/17 15:50 Dose: 3 ml Budesonide/Formoterol Fumarate (Symbicort 80-4.5 Mcg) 0 gm INH BIDRT [facility] Famotidine (Pepcid) 20 mg PO BID [facility] Last Admin: 07/31/17 09:12 Dose: Not Given Folic Acid (Folic Acid) 1 mg PO DAILY [facility] Last Admin: 07/31/17 09:12 Dose: Not Given Furosemide (Lasix) 40 mg IVPUSH NOW ONE Stop: 08/01/17 15:04 Last Admin: 08/01/17 15:34 Dose: 40 mg Furosemide (Lasix) 40 mg IVPUSH NOW ONE Stop: 08/02/17 05:01 Last Admin: 08/02/17 04:37 Dose: 40 mg Haloperidol Lactate (Haldol) 5 mg IVPUSH Q4H PRN PRN Reason: Anxiety Last Admin: 07/31/17 11:00 Dose: 5 mg Haloperidol Lactate (Haldol) 7 mg IVPUSH Q2H PRN PRN Reason: Anxiety Last Admin: 07/31/17 17:47 Dose: 7 mg Haloperidol Lactate (Haldol) Confirm Administered Dose 5 mg .ROUTE .STK-MED ONE Stop: 07/31/17 18:27 Last Admin: 07/31/17 19:01 Dose: Not Given Haloperidol Lactate (Haldol) 5 mg IVPUSH ONETIME ONE Stop: 07/31/17 18:27 Last Admin: 07/31/17 18:27 Dose: 5 mg Hydralazine HCl (Apresoline) 10 mg PO Q6H PRN PRN Reason: Hypertension Sodium Chloride (Normal Saline) 1,000 mls @ 75 mls/hr IV ASDIRECTED [facility] Last Admin: 07/31/17 20:20 Dose: 150 mls/hr Propofol (Diprivan 100 Ml) Confirm Administered Dose 100 mls @ as directed .ROUTE .STK-MED ONE Stop: 07/31/17 19:26 Last Admin: 07/31/17 20:55 Dose: Not Given Insulin Aspart (Novolog) 0 unit SUBCUT Q6H [facility] PRN Reason: Protocol Last Admin: 08/03/17 16:45 Dose: Not Given Iopamidol (Isovue-370 (76%)) 100 ml IVPUSH ONETIME ONE Stop: 07/30/17 16:56 Last Admin: 07/30/17 17:35 Dose: 80 ml Ketamine HCl (Ketalar) 100 mg IV ONETIME ONE Stop: 07/31/17 18:58 Last Admin: 07/31/17 18:57 Dose: 100 mg Ketamine HCl (Ketalar) 500 mg .ROUTE .STK-MED ONE Stop: 08/01/17 22:23 Lorazepam (Ativan) 0 mg IVPUSH Q4H PRN; Protocol PRN Reason: withdrawl Last Admin: 07/30/17 21:20 Dose: 1 mg Lorazepam (Ativan) 2 mg IVPUSH Q4H PRN PRN Reason: Seizures Lorazepam (Ativan) 1 mg PO Q4H PRN PRN Reason: anxiety Naloxone HCl (Narcan) 0.1 mg IVPUSH ONETIME ONE Stop: 07/30/17 16:54 Last Admin: 07/30/17 17:57 Dose: Not Given Naloxone HCl (Narcan) 0.2 mg IVPUSH ONETIME ONE Stop: 07/30/17 16:59 Last Admin: 07/30/17 17:01 Dose: 0.2 mg Naloxone HCl (Narcan) 0.2 mg IVPUSH ONETIME ONE Stop: 07/30/17 17:00 Last Admin: 07/30/17 17:10 Dose: Not Given Naloxone HCl (Narcan) 0.2 mg IVPUSH ONETIME ONE Stop: 07/30/17 17:14 Last Admin: 07/30/17 17:14 Dose: 0.2 mg Propofol (Diprivan 20 Ml) 100 mg IVPUSH ONETIME ONE Stop: 07/31/17 19:19 Last Admin: 07/31/17 19:18 Dose: 100 mg Propofol (Diprivan 20 Ml) 200 mg .ROUTE .STK-MED ONE Stop: 08/01/17 22:23 Sodium Chloride (Saline Flush) 10 ml FLUSH ONETIME ONE Stop: 07/30/17 16:56 Last Admin: 07/30/17 17:35 Dose: 10 ml Thiamine HCl (Vitamin B-1) 100 mg PO DAILY [facility] Last Admin: 07/31/17 09:13 Dose: Not Given - Exam Quality Assessment: Supplemental Oxygen (mech vent), DVT Prophylaxis General: Sedated HEENT: Pupils Equal, Pupils Reactive Neck: Trachea Midline Lungs: Normal Respiratory Effort, Decreased Breath Sounds, Rhonchi Cardiovascular: Regular Rate, Tachycardia GI/Abdominal Exam: Normal Bowel Sounds, Soft, Non-Tender, No Organomegaly, No Distention (Male) Exam: Deferred Back Exam: Normal Inspection Extremities: Normal Inspection, Non-Tender, No Pedal Edema Skin: Warm Neurological: No New Focal Deficit Psy/Mental Status: Other (sedated, on mech vent) - Problem List & Annotations (1) Overdose SNOMED Code(s): 37982413 Code(s): T50.901A - POISONING BY UNSP DRUG/MEDS/BIOL SUBST, ACCIDENTAL, INIT Status: Acute Current Visit: Yes (2) Substance abuse SNOMED Code(s): 23357744 Code(s): F19.10 - OTHER PSYCHOACTIVE SUBSTANCE ABUSE, UNCOMPLICATED Status : Acute Priority: High Current Visit: Yes - Problem List Review Problem List Initiated/Reviewed/Updated: Yes - My Orders Last 24 Hours: My Active Orders 08/03/17 10:30 RT Arterial Blood Gases, ABG [RC] Click to Edit 08/03/17 11:02 SCD [Sequential Compression Device] [OM.PC] Routine 08/03/17 11:03 Antiembolic Devices [RC] QSHIFT 08/03/17 14:00 Metoprolol Tartrate [Lopressor] 5 mg IVPUSH Q4H 08/03/17 16:27 Dextrose 50% in Water 50 ml IVPUSH ASDIRECTED PRN 08/03/17 16:30 methylPREDNISolone Sod Succ [Solu-MEDROL] 80 mg IVPUSH Q12H 08/03/17 18:00 Insulin Aspart [NovoLOG] See Protocol SUBCUT Q6H - Plan Plan:: I/P: Acute: Withdrawal Symptoms/DT - [facility]sedation with propofol Elective [facility] vent, Day 4--->ATTEMPTING TO WEAN; *PS/PEEP PAF-->returned to sinus rhythm Neuro--> moving all 4 extremities, not following commands; decrease propofol Alcohol Abuse - Acute on Chronic - He reportedly drinks regularly - He would not explain how much he drinks or when. 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 - Counseled on Substance Abuse, although pt. was not willing to discuss it - SA/Psych consult------>postponed, unable to participate, will attempt weaning parameters, 08/03/17. Chronic: Daughter does note he has sleep apnea and is on CPAP\\BiPAP, HLD, HTN, advanced lung disease. Morbid obesity Plan: Admit to ICU MVI, Folic, Acid and Thiamine CIWA protocol Ativan for Abortive Seizure and Withdrawal Symptoms PRN meds for Withdrawal Symptoms Seizure Precautions SW/CM discharge planning SA/Psych consult Code Status:Full code. He does not have a PCP in Area
[2017-08-04] MEDS: Tamsulosin 0.4 MG Cap.ER PO SCH (10:48)
[2017-08-04] MEDS: cloNIDine 0.1 MG Tab PO SCH ×2 (10:48→20:10)
[2017-08-04] MEDS: Allopurinol 100 MG Tab PO SCH (10:49)
[2017-08-04] MEDS: Multivitamins,Therapeutic Tab PO SCH (10:49)
[2017-08-04] MEDS: Folic Acid 50 MG/10 ML MDV IV SCH (10:53)
[2017-08-04] MEDS: Thiamine 200 MG/2 ML MDV IV SCH (10:55)
[2017-08-04] MEDS: Enoxaparin 40 MG/0.4 ML Syringe SUBCUT SCH (10:55)
[2017-08-04] MEDS: Famotidine 20 MG/2 ML SDV IVPUSH SCH ×2 (10:57→20:51)
[2017-08-04] MEDS: QUEtiapine 25 MG Tab PO SCH (20:11)
[2017-08-04] MEDS: Simvastatin 20 MG Tab PO SCH (20:11)
[2017-08-04] MEDS: Levofloxacin/Dextrose 5%-Water 750 MG in Premix Bag 1 BAG IV SCH (20:51)
[2017-08-04] MEDS: hydrALAZINE 20 MG/ML SDV IVPUSH PRN (22:19)
[2017-08-04] MEDS: Metoprolol Tartrate 5 MG/5 ML SDV IVPUSH PRN (22:56)
[2017-08-05] MEDS: Haloperidol Lactate 5 MG/ML SDV IVPUSH PRN (00:02)
[2017-08-05] MEDS: Insulin Aspart 100 Units/ML 3 ML Pen SUBCUT SCH ×5 (00:30→23:58)
[2017-08-05] MEDS: Dextrose 5%-0.9% NaCl 1,000 ML IV SCH ×2 (01:10→19:45)
[2017-08-05] MEDS: Metoprolol Tartrate 5 MG/5 ML SDV IVPUSH SCH ×6 (02:47→22:17)
[2017-08-05] MEDS: methylPREDNISolone Sodium Succinate 40 MG/1 ML SDV IVPUSH SCH ×2 (05:23→15:47)
[2017-08-05] MEDS: Albuterol/Ipratropium 3.0-0.5 MG/3 ML Neb Soln NEB SCH ×4 (06:18→20:04)
[2017-08-05] MEDS: Formoterol/Mometasone 100-5 MCG 8.8 GM Inhaler IH SCH (06:54)
[2017-08-05] MEDS: NS + KCl 20mEq/L 1,000 ML IV SCH (09:27)
[2017-08-05] MEDS: Allopurinol 100 MG Tab PO SCH (09:30)
[2017-08-05] MEDS: Multivitamins,Therapeutic Tab PO SCH (09:30)
[2017-08-05] MEDS: cloNIDine 0.1 MG Tab PO SCH ×2 (09:30→22:15)
[2017-08-05] MEDS: Tamsulosin 0.4 MG Cap.ER PO SCH (09:30)
[2017-08-05] MEDS: Famotidine 20 MG/2 ML SDV IVPUSH SCH ×2 (09:45→21:06)
[2017-08-05] MEDS: Enoxaparin 40 MG/0.4 ML Syringe SUBCUT SCH (09:47)
[2017-08-05] MEDS: Thiamine 200 MG/2 ML MDV IV SCH (09:47)
[2017-08-05] MEDS: Folic Acid 50 MG/10 ML MDV IV SCH (09:48)
[2017-08-05] MEDS: hydrALAZINE 20 MG/ML SDV IVPUSH PRN (10:09)
[2017-08-05] MEDS: Albuterol 0.083% 2.5 MG/3 ML Neb Soln NEB PRN (11:17)
[2017-08-05] MEDS: LORazepam 2 MG/ML MDV IVPUSH PRN ×3 (11:39→15:47)
[2017-08-05] MEDS: HYDROmorphone 1 MG/ML Syringe IVPUSH PRN ×3 (12:04→21:05)
[2017-08-05] MEDS ORDERED: LORazepam 2 MG/ML MDV ONE (13:23)
--- NOTE | 2017-08-05 14:43 | PCM.PN ---
- General Info Date of Service: 08/05/17 Functional Status: Reports: Pain Controlled, Urinating, Other (extubated now on BIPAP 05/03) - Review of Systems General: Reports: No Symptoms HEENT: Reports: No Symptoms Pulmonary: Reports: No Symptoms Cardiovascular: Reports: No Symptoms Gastrointestinal: Reports: No Symptoms Genitourinary: Reports: No Symptoms Musculoskeletal: Reports: No Symptoms Skin: Reports: No Symptoms Neurological: Reports: No Symptoms Psychiatric: Reports: Agitation - Patient Data Vitals - Most Recent: Last Vital Signs Temp 37.2 C 08/05/17 08:00 Pulse 117 H 08/05/17 12:00 Resp 32 H 08/05/17 12:00 BP 172/111 H 08/05/17 12:00 Pulse Ox 86 L 08/05/17 12:00 Weight - Most Recent: 146.782 kg I&O - Last 24 Hours: Intake & Output 08/04/17 08/05/17 08/05/17 22:59 06:59 14:59 Intake Total 2320 3948 Output Total 835 253 0811 Balance 1445 3053 -1050 Lab Results Last 24 Hours: Laboratory Results - last 24 hr 08/04/17 08/04/17 08/04/17 Range/Units 14:47 19:18 22:28 WBC (4.23-9.07) K/mm3 RBC (4.63-6.08) M/mm3 Hgb (13.7-17.5) gm/L Hct (40.1-51.0) % MCV (79.0-92.2) fl MCH (25.7-32.2) pg MCHC (32.2-35.5) g/dl RDW Std Deviation (35.1-43.9) fL Plt Count (163-337) K/mm3 MPV (9.4-12.3) fl Neut % (Auto) (34.0-67.9) % Lymph % (Auto) (21.8-53.1) % Stokes % (Auto) (5.3-12.2) % Eos % (Auto) (0.8-7.0) Baso % (Auto) (0.1-1.2) % Neut # (Auto) (1.78-5.38) K/mm3 Lymph # (Auto) (1.32-3.57) K/mm3 Stokes # (Auto) (0.30-0.82) K/mm3 Eos # (Auto) (0.04-0.54) K/mm3 Baso # (Auto) (0.01-0.08) K/mm3 Puncture Site Lt radial ABG pH 7.36 (7.35-7.45) ABG pCO2 44.6 (35.0-45.0) mmHg ABG pO2 63.0 L (80.0-100.0) mmHg ABG HCO3 24.7 (22.0-26.0) meq/L ABG O2 Saturation 90.1 L (96.0-97.0) % ABG Base Excess -0.4 (-2-2.0) Navi Test A-a Gradient 170 mmHg O2 Delivery Device Ventilator Oxygen Flow Rate FiO2 45.00 (21.00-100.00) % Tidal Volume cc PEEP 5.0 cmH20 Pressure Support 10.0 cmH2O Sodium (136-145) mEq/L Potassium (3.5-5.1) mEq/L Chloride (98-107) mEq/L Carbon Dioxide (21-32) mEq/L Anion Gap (5-15) BUN (7-18) mg/dL Creatinine (0.7-1.3) mg/dL Est Cr Clr Drug Dosing mL/min Estimated GFR (MDRD) (>60) mL/min BUN/Creatinine Ratio (14-18) Glucose (80-115) mg/dL POC Glucose 121 H 157 H (80-115) mg/dL Calcium (8.5-10.1) mg/dL Magnesium (1.8-2.4) mg/dl C-Reactive Protein (<1.0) mg/dL 08/05/17 08/05/17 08/05/17 Range/Units 05:00 05:00 05:00 WBC 5.15 (4.23-9.07) K/mm3 RBC 3.94 L (4.63-6.08) M/mm3 Hgb 12.7 L (13.7-17.5) gm/L Hct 39.3 L (40.1-51.0) % MCV 99.7 H (79.0-92.2) fl MCH 32.2 (25.7-32.2) pg MCHC 32.3 (32.2-35.5) g/dl RDW Std Deviation 52.6 H (35.1-43.9) fL Plt Count 209 (163-337) K/mm3 MPV 9.5 (9.4-12.3) fl Neut % (Auto) 79.2 H (34.0-67.9) % Lymph % (Auto) 13.6 L (21.8-53.1) % Stokes % (Auto) 6.8 (5.3-12.2) % Eos % (Auto) 0 L (0.8-7.0) Baso % (Auto) 0.0 L (0.1-1.2) % Neut # (Auto) 4.08 (1.78-5.38) K/mm3 Lymph # (Auto) 0.70 L (1.32-3.57) K/mm3 Stokes # (Auto) 0.35 (0.30-0.82) K/mm3 Eos # (Auto) 0.00 L (0.04-0.54) K/mm3 Baso # (Auto) 0.00 L (0.01-0.08) K/mm3 Puncture Site ABG pH (7.35-7.45) ABG pCO2 (35.0-45.0) mmHg ABG pO2 (80.0-100.0) mmHg ABG HCO3 (22.0-26.0) meq/L ABG O2 Saturation (96.0-97.0) % ABG Base Excess (-2-2.0) Navi Test A-a Gradient mmHg O2 Delivery Device Oxygen Flow Rate FiO2 (21.00-100.00) % Tidal Volume cc PEEP cmH20 Pressure Support cmH2O Sodium 145 (136-145) mEq/L Potassium 4.8 (3.5-5.1) mEq/L Chloride 112 H (98-107) mEq/L Carbon Dioxide 26 (21-32) mEq/L Anion Gap 11.8 (5-15) BUN 23 H (7-18) mg/dL Creatinine 1.0 (0.7-1.3) mg/dL Est Cr Clr Drug Dosing 69.77 mL/min Estimated GFR (MDRD) > 60 (>60) mL/min BUN/Creatinine Ratio 23.0 H (14-18) Glucose 153 H (80-115) mg/dL POC Glucose (80-115) mg/dL Calcium 7.7 L (8.5-10.1) mg/dL Magnesium 2.5 H (1.8-2.4) mg/dl C-Reactive Protein 11.7 H* (<1.0) mg/dL 08/05/17 08/05/17 08/05/17 Range/Units 06:03 06:10 12:25 WBC (4.23-9.07) K/mm3 RBC (4.63-6.08) M/mm3 Hgb (13.7-17.5) gm/L Hct (40.1-51.0) % MCV (79.0-92.2) fl MCH (25.7-32.2) pg MCHC (32.2-35.5) g/dl RDW Std Deviation (35.1-43.9) fL Plt Count (163-337) K/mm3 MPV (9.4-12.3) fl Neut % (Auto) (34.0-67.9) % Lymph % (Auto) (21.8-53.1) % Stokes % (Auto) (5.3-12.2) % Eos % (Auto) (0.8-7.0) Baso % (Auto) (0.1-1.2) % Neut # (Auto) (1.78-5.38) K/mm3 Lymph # (Auto) (1.32-3.57) K/mm3 Stokes # (Auto) (0.30-0.82) K/mm3 Eos # (Auto) (0.04-0.54) K/mm3 Baso # (Auto) (0.01-0.08) K/mm3 Puncture Site Lt radial ABG pH 7.33 L (7.35-7.45) ABG pCO2 48.3 H (35.0-45.0) mmHg ABG pO2 63.0 L (80.0-100.0) mmHg ABG HCO3 24.8 (22.0-26.0) meq/L ABG O2 Saturation 93.2 L (96.0-97.0) % ABG Base Excess -0.9 (-2-2.0) Navi Test Positive A-a Gradient 197 mmHg O2 Delivery Device Ventilator Oxygen Flow Rate FiO2 50.00 (21.00-100.00) % Tidal Volume 650.0 cc PEEP 10.0 cmH20 Pressure Support cmH2O Sodium (136-145) mEq/L Potassium (3.5-5.1) mEq/L Chloride (98-107) mEq/L Carbon Dioxide (21-32) mEq/L Anion Gap (5-15) BUN (7-18) mg/dL Creatinine (0.7-1.3) mg/dL Est Cr Clr Drug Dosing mL/min Estimated GFR (MDRD) (>60) mL/min BUN/Creatinine Ratio (14-18) Glucose (80-115) mg/dL POC Glucose 138 H 144 H (80-115) mg/dL Calcium (8.5-10.1) mg/dL Magnesium (1.8-2.4) mg/dl C-Reactive Protein (<1.0) mg/dL 08/05/17 Range/Units 13:00 WBC (4.23-9.07) K/mm3 RBC (4.63-6.08) M/mm3 Hgb (13.7-17.5) gm/L Hct (40.1-51.0) % MCV (79.0-92.2) fl MCH (25.7-32.2) pg MCHC (32.2-35.5) g/dl RDW Std Deviation (35.1-43.9) fL Plt Count (163-337) K/mm3 MPV (9.4-12.3) fl Neut % (Auto) (34.0-67.9) % Lymph % (Auto) (21.8-53.1) % Stokes % (Auto) (5.3-12.2) % Eos % (Auto) (0.8-7.0) Baso % (Auto) (0.1-1.2) % Neut # (Auto) (1.78-5.38) K/mm3 Lymph # (Auto) (1.32-3.57) K/mm3 Stokes # (Auto) (0.30-0.82) K/mm3 Eos # (Auto) (0.04-0.54) K/mm3 Baso # (Auto) (0.01-0.08) K/mm3 Puncture Site Rt radial ABG pH 7.32 L (7.35-7.45) ABG pCO2 49.4 H (35.0-45.0) mmHg ABG pO2 61.0 L (80.0-100.0) mmHg ABG HCO3 24.9 (22.0-26.0) meq/L ABG O2 Saturation 87.3 L (96.0-97.0) % ABG Base Excess -1.3 (-2-2.0) Navi Test A-a Gradient 159 mmHg O2 Delivery Device Nasal cannula Oxygen Flow Rate 6.0 FiO2 44.00 (21.00-100.00) % Tidal Volume cc PEEP cmH20 Pressure Support cmH2O Sodium (136-145) mEq/L Potassium (3.5-5.1) mEq/L Chloride (98-107) mEq/L Carbon Dioxide (21-32) mEq/L Anion Gap (5-15) BUN (7-18) mg/dL Creatinine (0.7-1.3) mg/dL Est Cr Clr Drug Dosing mL/min Estimated GFR (MDRD) (>60) mL/min BUN/Creatinine Ratio (14-18) Glucose (80-115) mg/dL POC Glucose (80-115) mg/dL Calcium (8.5-10.1) mg/dL Magnesium (1.8-2.4) mg/dl C-Reactive Protein (<1.0) mg/dL Med Orders - Current: Current Medications Acetaminophen (Tylenol) 650 mg PO Q4H PRN PRN Reason: Pain (Mild 1-3)/fever Albuterol (Proventil Neb Soln) 2.5 mg NEB Q4HRRT PRN PRN Reason: Shortness of Breath Last Admin: 08/05/17 11:17 Dose: 2.5 mg Albuterol/Ipratropium (Duoneb 3.0-0.5 Mg/3 Ml) 3 ml NEB QIDRT [facility] Last Admin: 08/05/17 06:18 Dose: 3 ml Allopurinol (Zyloprim) 350 mg PO DAILY [facility] Last Admin: 08/05/17 09:30 Dose: Not Given Clonidine HCl (Catapres) 0.1 mg PO Q12HR [facility] Last Admin: 08/05/17 09:30 Dose: Not Given Dextrose/Water (Dextrose 50% In Water) 50 ml IVPUSH ASDIRECTED PRN PRN Reason: Hypoglycemia Enoxaparin Sodium (Lovenox) 40 mg SUBCUT DAILY [facility] Last Admin: 08/05/17 09:47 Dose: 40 mg Famotidine (Pepcid) 20 mg IVPUSH BID [facility] Last Admin: 08/05/17 09:45 Dose: 20 mg Folic Acid (Folic Acid) 1 mg IV DAILY [facility] Last Admin: 08/05/17 09:48 Dose: 1 mg Haloperidol Lactate (Haldol) 4 mg IVPUSH Q6H PRN PRN Reason: restlessness Last Admin: 08/05/17 00:02 Dose: 4 mg Hydralazine HCl (Apresoline) 20 mg IVPUSH Q6H PRN PRN Reason: Hypertension Last Admin: 08/05/17 10:09 Dose: 20 mg Hydromorphone HCl (Dilaudid) 1 mg IVPUSH Q4H PRN PRN Reason: Pain Last Admin: 08/05/17 12:04 Dose: 1 mg Levofloxacin/Dextrose 750 mg/ (Premix) 150 mls @ 100 mls/hr IV Q24H [facility] Last Admin: 08/04/17 20:51 Dose: 100 mls/hr Potassium Chloride/Sodium Chloride (Normal Saline With 20 Meq Kcl) 1,000 mls @ 75 mls/hr IV ASDIRECTED [facility] Last Admin: 08/05/17 09:27 Dose: 75 mls/hr Propofol (Diprivan 100 Ml) 100 mls @ 17.16 mls/hr IV TITRATE [facility]; 20 MCG/KG/MIN PRN Reason: Protocol Last Titration: 08/05/17 08:34 Dose: 0 mcg/kg/min, 0 mls/hr Norepinephrine Bitartrate 4 mg (/ Dextrose/Water) 250 mls @ 7.5 mls/hr IV TITRATE [facility]; 2 MCG/MIN PRN Reason: Protocol Dextrose/Sodium Chloride (Dextrose 5%-Normal Saline) 1,000 mls @ 100 mls/hr IV ASDIRECTED [facility] Insulin Aspart (Novolog) 0 unit SUBCUT Q6H [facility] PRN Reason: Protocol Last Admin: 08/05/17 13:31 Dose: Not Given Lorazepam (Ativan) 0 mg IVPUSH Q1H PRN; Protocol PRN Reason: withdrawl Last Admin: 08/05/17 11:39 Dose: 2 mg Lorazepam (Ativan) 4 mg IVPUSH Q4H PRN PRN Reason: Anxiety Last Admin: 08/05/17 13:30 Dose: 4 mg Methylprednisolone Sodium Succinate (Solu-Medrol) 80 mg IVPUSH Q12H [facility] Last Admin: 08/05/17 05:23 Dose: 80 mg Metoprolol Tartrate (Lopressor) 5 mg IVPUSH Q4H PRN PRN Reason: Tachycardia Last Admin: 08/04/17 22:56 Dose: 5 mg Metoprolol Tartrate (Lopressor) 5 mg IVPUSH Q4H [facility] Last Admin: 08/05/17 11:07 Dose: 5 mg Mometasone Furoate/Formoterol Fumar (Dulera 100-5 Mcg) 0 puff IH BIDRT [facility] Last Admin: 08/05/17 06:54 Dose: Not Given Multivitamins (Thera) 1 each PO DAILY [facility] Last Admin: 08/05/17 09:30 Dose: Not Given Ondansetron HCl (Zofran Odt) 4 mg PO Q6H PRN PRN Reason: nausea, able to take PO Ondansetron HCl (Zofran) 4 mg IV Q6H PRN PRN Reason: Nausea/Vomiting Quetiapine Fumarate (Seroquel) 50 mg PO BEDTIME [facility] Last Admin: 08/04/17 20:11 Dose: Not Given Simvastatin (Zocor) 20 mg PO BEDTIME [facility] Last Admin: 08/04/17 20:11 Dose: Not Given Tamsulosin HCl (Flomax) 0.4 mg PO DAILY [facility] Last Admin: 08/05/17 09:30 Dose: Not Given Temazepam (Restoril) 15 mg PO BEDTIME PRN PRN Reason: Sleep Last Admin: 07/30/17 21:19 Dose: 15 mg Thiamine HCl (Vitamin B-1) 100 mg IV DAILY [facility] Last Admin: 08/05/17 09:47 Dose: 100 mg Discontinued Medications Albuterol/Ipratropium (Duoneb 3.0-0.5 Mg/3 Ml) 3 ml NEB Q4H PRN PRN Reason: Shortness Of Breath/wheezing Last Admin: 07/31/17 15:50 Dose: 3 ml Budesonide/Formoterol Fumarate (Symbicort 80-4.5 Mcg) 0 gm INH BIDRT [facility] Famotidine (Pepcid) 20 mg PO BID [facility] Last Admin: 07/31/17 09:12 Dose: Not Given Folic Acid (Folic Acid) 1 mg PO DAILY [facility] Last Admin: 07/31/17 09:12 Dose: Not Given Furosemide (Lasix) 40 mg IVPUSH NOW ONE Stop: 08/01/17 15:04 Last Admin: 08/01/17 15:34 Dose: 40 mg Furosemide (Lasix) 40 mg IVPUSH NOW ONE Stop: 08/02/17 05:01 Last Admin: 08/02/17 04:37 Dose: 40 mg Haloperidol Lactate (Haldol) 5 mg IVPUSH Q4H PRN PRN Reason: Anxiety Last Admin: 07/31/17 11:00 Dose: 5 mg Haloperidol Lactate (Haldol) 7 mg IVPUSH Q2H PRN PRN Reason: Anxiety Last Admin: 07/31/17 17:47 Dose: 7 mg Haloperidol Lactate (Haldol) Confirm Administered Dose 5 mg .ROUTE .STK-MED ONE Stop: 07/31/17 18:27 Last Admin: 07/31/17 19:01 Dose: Not Given Haloperidol Lactate (Haldol) 5 mg IVPUSH ONETIME ONE Stop: 07/31/17 18:27 Last Admin: 07/31/17 18:27 Dose: 5 mg Hydralazine HCl (Apresoline) 10 mg PO Q6H PRN PRN Reason: Hypertension Sodium Chloride (Normal Saline) 1,000 mls @ 75 mls/hr IV ASDIRECTED [facility] Last Admin: 07/31/17 20:20 Dose: 150 mls/hr Propofol (Diprivan 100 Ml) Confirm Administered Dose 100 mls @ as directed .ROUTE .STK-MED ONE Stop: 07/31/17 19:26 Last Admin: 07/31/17 20:55 Dose: Not Given Dextrose/Sodium Chloride (Dextrose 5%-Normal Saline) 1,000 mls @ 50 mls/hr IV ASDIRECTED [facility] Last Admin: 08/05/17 01:10 Dose: 50 mls/hr Insulin Aspart (Novolog) 0 unit SUBCUT Q6H [facility] PRN Reason: Protocol Last Admin: 08/03/17 16:45 Dose: Not Given Iopamidol (Isovue-370 (76%)) 100 ml IVPUSH ONETIME ONE Stop: 07/30/17 16:56 Last Admin: 07/30/17 17:35 Dose: 80 ml Ketamine HCl (Ketalar) 100 mg IV ONETIME ONE Stop: 07/31/17 18:58 Last Admin: 07/31/17 18:57 Dose: 100 mg Ketamine HCl (Ketalar) 500 mg .ROUTE .STK-MED ONE Stop: 08/01/17 22:23 Lorazepam (Ativan) 0 mg IVPUSH Q4H PRN; Protocol PRN Reason: withdrawl Last Admin: 07/30/17 21:20 Dose: 1 mg Lorazepam (Ativan) 2 mg IVPUSH Q4H PRN PRN Reason: Seizures Lorazepam (Ativan) 1 mg PO Q4H PRN PRN Reason: anxiety Lorazepam (Ativan) 1 mg IVPUSH Q4H PRN PRN Reason: Anxiety Last Admin: 08/04/17 23:58 Dose: 1 mg Lorazepam (Ativan) Confirm Administered Dose 4 mg .ROUTE .STK-MED ONE Stop: 08/05/17 13:24 Last Admin: 08/05/17 13:32 Dose: Not Given Naloxone HCl (Narcan) 0.1 mg IVPUSH ONETIME ONE Stop: 07/30/17 16:54 Last Admin: 07/30/17 17:57 Dose: Not Given Naloxone HCl (Narcan) 0.2 mg IVPUSH ONETIME ONE Stop: 07/30/17 16:59 Last Admin: 07/30/17 17:01 Dose: 0.2 mg Naloxone HCl (Narcan) 0.2 mg IVPUSH ONETIME ONE Stop: 07/30/17 17:00 Last Admin: 07/30/17 17:10 Dose: Not Given Naloxone HCl (Narcan) 0.2 mg IVPUSH ONETIME ONE Stop: 07/30/17 17:14 Last Admin: 07/30/17 17:14 Dose: 0.2 mg Propofol (Diprivan 20 Ml) 100 mg IVPUSH ONETIME ONE Stop: 07/31/17 19:19 Last Admin: 07/31/17 19:18 Dose: 100 mg Propofol (Diprivan 20 Ml) 200 mg .ROUTE .STK-MED ONE Stop: 08/01/17 22:23 Sodium Chloride (Saline Flush) 10 ml FLUSH ONETIME ONE Stop: 07/30/17 16:56 Last Admin: 07/30/17 17:35 Dose: 10 ml Thiamine HCl (Vitamin B-1) 100 mg PO DAILY [facility] Last Admin: 07/31/17 09:13 Dose: Not Given - Exam Quality Assessment: Supplemental Oxygen, Urine Catheter, DVT Prophylaxis General: Lethargic HEENT: Pupils Equal, Pupils Reactive, EOMI Neck: Trachea Midline, Lymphadenopathy Lungs: Decreased Breath Sounds, Rhonchi Cardiovascular: Regular Rate, Regular Rhythm GI/Abdominal Exam: Normal Bowel Sounds, Soft, No Distention (Male) Exam: Deferred Back Exam: Normal Inspection Extremities: Normal Inspection, Pedal Edema Skin: Warm, Dry Neurological: Other (following commands; moving all 4 extremities) Psy/Mental Status: Anxious - Problem List & Annotations (1) Overdose SNOMED Code(s): 26264152 Code(s): T50.901A - POISONING BY UNSP DRUG/MEDS/BIOL SUBST, ACCIDENTAL, INIT Status: Acute Current Visit: Yes (2) Substance abuse SNOMED Code(s): 54555755 Code(s): F19.10 - OTHER PSYCHOACTIVE SUBSTANCE ABUSE, UNCOMPLICATED Status : Acute Priority: High Current Visit: Yes - Problem List Review Problem List Initiated/Reviewed/Updated: Yes - My Orders Last 24 Hours: My Active Orders 08/05/17 05:00 CBC WITH AUTO DIFF [HEME] Routine 08/05/17 08:00 RT Ventilator Weaning [RC] AMPROC 08/05/17 10:56 Extubation [RT Extubation] [RC] PER UNIT ROUTINE 08/05/17 11:56 HYDROmorphone [Dilaudid] 1 mg IVPUSH Q4H PRN 08/05/17 12:31 Consult to Speech Language Pathology [SECURITY CHECKER Evaluation and Treatment] [CONS] Routine 08/05/17 12:32 Consult to Occupational Therapy [OT Evaluation and Treatment] [CONS] Routine Consult to Physical Therapy [PT Evaluation and Treatment] [CONS] Routine 08/05/17 13:21 LORazepam [Ativan] 4 mg IVPUSH Q4H PRN 08/05/17 14:45 Dextrose 5%-Normal Saline @ 100 MLS/HR(1000ml) Dextrose 5%-0.9% NaCl [Dextrose 5 %-Normal Saline] 1,000 ml IV ASDIRECTED 08/06/17 04:00 CRP [C-REACTIVE PROTEIN] [CHEM] DAILY 08/06/17 05:00 BMP [BASIC METABOLIC PANEL,BMP] [CHEM] DAILY MAGNESIUM [CHEM] DAILY 08/07/17 04:00 CRP [C-REACTIVE PROTEIN] [CHEM] DAILY 08/07/17 05:00 BMP [BASIC METABOLIC PANEL,BMP] [CHEM] DAILY MAGNESIUM [CHEM] DAILY 08/08/17 04:00 CRP [C-REACTIVE PROTEIN] [CHEM] DAILY 08/08/17 05:00 BMP [BASIC METABOLIC PANEL,BMP] [CHEM] DAILY MAGNESIUM [CHEM] DAILY 08/09/17 04:00 CRP [C-REACTIVE PROTEIN] [CHEM] DAILY 08/09/17 05:00 BMP [BASIC METABOLIC PANEL,BMP] [CHEM] DAILY MAGNESIUM [CHEM] DAILY - Plan Plan:: I/P: Acute: Withdrawal Symptoms/DT - CIWAA protocol -mech vent -sedation with propofol Elective [facility] vent, Day 4--->SUCCESSFUL EXTUBATION PAF-->returned to sinus rhythm Neuro--> moving all 4 extremities, not following commands; decrease propofol Alcohol Abuse - Acute on Chronic - He reportedly drinks regularly - He would not explain how much he drinks or when. 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 - Counseled on Substance Abuse, although pt. was not willing to discuss it - SA/Psych consult------>postponed, unable to participate, will attempt weaning parameters, 08/03/17. Chronic: Daughter does note he has sleep apnea and is on CPAP\\BiPAP, HLD, HTN, advanced lung disease. Morbid obesity Plan: Admit to ICU MVI, Folic, Acid and Thiamine CIWA protocol Ativan for Abortive Seizure and Withdrawal Symptoms PRN meds for Withdrawal Symptoms Seizure Precautions SW/CM discharge planning SA/Psych consult Code Status:Full code. He does not have a PCP in Area
[2017-08-05] MEDS: Levofloxacin/Dextrose 5%-Water 750 MG in Premix Bag 1 BAG IV SCH (21:02)
[2017-08-05] MEDS: QUEtiapine 25 MG Tab PO SCH (22:15)
[2017-08-05] MEDS: Simvastatin 20 MG Tab PO SCH (22:15)
[2017-08-06] MEDS: LORazepam 2 MG/ML MDV IVPUSH PRN ×5 (00:20→08:18)
[2017-08-06] MEDS: HYDROmorphone 1 MG/ML Syringe IVPUSH PRN ×6 (02:15→22:19)
[2017-08-06] MEDS: Metoprolol Tartrate 5 MG/5 ML SDV IVPUSH SCH ×2 (02:56→07:50)
[2017-08-06] MEDS: Formoterol/Mometasone 100-5 MCG 8.8 GM Inhaler IH SCH ×3 (03:18→21:04)
[2017-08-06] MEDS: methylPREDNISolone Sodium Succinate 40 MG/1 ML SDV IVPUSH SCH ×2 (03:39→15:35)
[2017-08-06] MEDS: Dextrose 5%-0.9% NaCl 1,000 ML IV SCH ×2 (04:30→15:11)
[2017-08-06] MEDS: Albuterol/Ipratropium 3.0-0.5 MG/3 ML Neb Soln NEB SCH ×4 (06:25→20:08)
[2017-08-06] MEDS: Insulin Aspart 100 Units/ML 3 ML Pen SUBCUT SCH ×3 (07:51→17:16)
[2017-08-06] MEDS: cloNIDine 0.1 MG Tab PO SCH ×2 (09:34→21:19)
[2017-08-06] MEDS: Allopurinol 100 MG Tab PO SCH (09:34)
[2017-08-06] MEDS: Tamsulosin 0.4 MG Cap.ER PO SCH (09:34)
[2017-08-06] MEDS: Multivitamins,Therapeutic Tab PO SCH (09:34)
[2017-08-06] MEDS: Famotidine 20 MG/2 ML SDV IVPUSH SCH ×2 (10:13→21:53)
[2017-08-06] MEDS: Thiamine 200 MG/2 ML MDV IV SCH (10:13)
[2017-08-06] MEDS: Enoxaparin 40 MG/0.4 ML Syringe SUBCUT SCH (10:14)
[2017-08-06] MEDS: Folic Acid 50 MG/10 ML MDV IV SCH (10:14)
[2017-08-06] MEDS: LORazepam 2 MG/ML MDV IVPUSH SCH ×6 (10:23→23:10)
--- NOTE | 2017-08-06 16:21 | PCM.PN ---
- General Info Date of Service: 08/06/17 Functional Status: Reports: Urinating, Other (sedated) - Review of Systems General: Reports: No Symptoms HEENT: Reports: No Symptoms Pulmonary: Reports: No Symptoms Cardiovascular: Reports: No Symptoms Gastrointestinal: Reports: No Symptoms Genitourinary: Reports: No Symptoms Musculoskeletal: Reports: No Symptoms Skin: Reports: No Symptoms Neurological: Reports: No Symptoms Psychiatric: Reports: Confusion, Agitation - Patient Data Vitals - Most Recent: Last Vital Signs Temp 36.6 C 08/06/17 16:00 Pulse 78 08/06/17 04:00 Resp 14 08/06/17 16:00 BP 118/69 08/06/17 16:00 Pulse Ox 93 L 08/06/17 16:00 Weight - Most Recent: 146.057 kg I&O - Last 24 Hours: Intake & Output 08/06/17 08/06/17 08/06/17 06:59 14:59 22:59 Intake Total 1175 Output Total 875 1145 Balance 300 -1145 Lab Results Last 24 Hours: Laboratory Results - last 24 hr 08/05/17 08/05/17 08/05/17 Range/Units 05:00 18:03 19:30 Manual Slide Review Not Reportable Puncture Site Rt radial ABG pH 7.28 L (7.35-7.45) ABG pCO2 60.7 H (35.0-45.0) mmHg ABG pO2 61.0 L (80.0-100.0) mmHg ABG HCO3 27.3 H (22.0-26.0) meq/L ABG O2 Saturation 93.4 L (96.0-97.0) % ABG Base Excess -0.4 (-2-2.0) Navi Test Positive A-a Gradient 183 mmHg O2 Delivery Device Bipap FiO2 50.00 (21.00-100.00) % Tidal Volume 685.0 cc PEEP 7.0 cmH20 Pressure Support 14.0 cmH2O Blood Gas Comments V60 Sodium (136-145) mEq/L Potassium (3.5-5.1) mEq/L Chloride (98-107) mEq/L Carbon Dioxide (21-32) mEq/L Anion Gap (5-15) BUN (7-18) mg/dL Creatinine (0.7-1.3) mg/dL Est Cr Clr Drug Dosing mL/min Estimated GFR (MDRD) (>60) mL/min BUN/Creatinine Ratio (14-18) Glucose (80-115) mg/dL POC Glucose 144 H (80-115) mg/dL Calcium (8.5-10.1) mg/dL Magnesium (1.8-2.4) mg/dl C-Reactive Protein (<1.0) mg/dL 08/05/17 08/06/17 08/06/17 Range/Units 23:53 04:26 04:36 Manual Slide Review Puncture Site ABG pH (7.35-7.45) ABG pCO2 (35.0-45.0) mmHg ABG pO2 (80.0-100.0) mmHg ABG HCO3 (22.0-26.0) meq/L ABG O2 Saturation (96.0-97.0) % ABG Base Excess (-2-2.0) Navi Test A-a Gradient mmHg O2 Delivery Device FiO2 (21.00-100.00) % Tidal Volume cc PEEP cmH20 Pressure Support cmH2O Blood Gas Comments Sodium 148 H (136-145) mEq/L Potassium 4.8 (3.5-5.1) mEq/L Chloride 112 H (98-107) mEq/L Carbon Dioxide 27 (21-32) mEq/L Anion Gap 13.8 (5-15) BUN 21 H (7-18) mg/dL Creatinine 0.9 (0.7-1.3) mg/dL Est Cr Clr Drug Dosing 77.52 mL/min Estimated GFR (MDRD) > 60 (>60) mL/min BUN/Creatinine Ratio 23.3 H (14-18) Glucose 129 H (80-115) mg/dL POC Glucose 159 H (80-115) mg/dL Calcium 8.3 L (8.5-10.1) mg/dL Magnesium 2.5 H (1.8-2.4) mg/dl C-Reactive Protein 6.7 H* (<1.0) mg/dL 08/06/17 08/06/17 08/06/17 Range/Units 06:00 06:40 11:43 Manual Slide Review Puncture Site Rt radial ABG pH 7.30 L (7.35-7.45) ABG pCO2 59.6 H (35.0-45.0) mmHg ABG pO2 83.0 (80.0-100.0) mmHg ABG HCO3 28.3 H (22.0-26.0) meq/L ABG O2 Saturation 95.1 L (96.0-97.0) % ABG Base Excess 0.8 (-2-2.0) Navi Test Positive A-a Gradient 131 mmHg O2 Delivery Device Bipap FiO2 0.50 L (21.00-100.00) % Tidal Volume cc PEEP 8.0 cmH20 Pressure Support 16.0 cmH2O Blood Gas Comments Sodium (136-145) mEq/L Potassium (3.5-5.1) mEq/L Chloride (98-107) mEq/L Carbon Dioxide (21-32) mEq/L Anion Gap (5-15) BUN (7-18) mg/dL Creatinine (0.7-1.3) mg/dL Est Cr Clr Drug Dosing mL/min Estimated GFR (MDRD) (>60) mL/min BUN/Creatinine Ratio (14-18) Glucose (80-115) mg/dL POC Glucose 130 H 141 H (80-115) mg/dL Calcium (8.5-10.1) mg/dL Magnesium (1.8-2.4) mg/dl C-Reactive Protein (<1.0) mg/dL Med Orders - Current: Current Medications Acetaminophen (Tylenol) 650 mg PO Q4H PRN PRN Reason: Pain (Mild 1-3)/fever Albuterol (Proventil Neb Soln) 2.5 mg NEB Q4HRRT PRN PRN Reason: Shortness of Breath Last Admin: 08/05/17 11:17 Dose: 2.5 mg Albuterol/Ipratropium (Duoneb 3.0-0.5 Mg/3 Ml) 3 ml NEB QIDRT [facility] Last Admin: 08/06/17 15:51 Dose: 3 ml Allopurinol (Zyloprim) 350 mg PO DAILY [facility] Last Admin: 08/06/17 09:34 Dose: Not Given Clonidine HCl (Catapres) 0.1 mg PO Q12HR [facility] Last Admin: 08/06/17 09:34 Dose: Not Given Dextrose/Water (Dextrose 50% In Water) 50 ml IVPUSH ASDIRECTED PRN PRN Reason: Hypoglycemia Enoxaparin Sodium (Lovenox) 40 mg SUBCUT DAILY [facility] Last Admin: 08/06/17 10:14 Dose: 40 mg Famotidine (Pepcid) 20 mg IVPUSH BID [facility] Last Admin: 08/06/17 10:13 Dose: 20 mg Folic Acid (Folic Acid) 1 mg IV DAILY [facility] Last Admin: 08/06/17 10:14 Dose: 1 mg Haloperidol Lactate (Haldol) 4 mg IVPUSH Q6H PRN PRN Reason: restlessness Last Admin: 08/05/17 00:02 Dose: 4 mg Hydralazine HCl (Apresoline) 20 mg IVPUSH Q6H PRN PRN Reason: Hypertension Last Admin: 08/05/17 10:09 Dose: 20 mg Hydromorphone HCl (Dilaudid) 1 mg IVPUSH Q4H PRN PRN Reason: Pain Last Admin: 08/06/17 15:11 Dose: 1 mg Levofloxacin/Dextrose 750 mg/ (Premix) 150 mls @ 100 mls/hr IV Q24H [facility] Last Admin: 08/05/17 21:02 Dose: 100 mls/hr Propofol (Diprivan 100 Ml) 100 mls @ 17.16 mls/hr IV TITRATE [facility]; 20 MCG/KG/MIN PRN Reason: Protocol Last Titration: 08/05/17 08:34 Dose: 0 mcg/kg/min, 0 mls/hr Norepinephrine Bitartrate 4 mg (/ Dextrose/Water) 250 mls @ 7.5 mls/hr IV TITRATE [facility]; 2 MCG/MIN PRN Reason: Protocol Dextrose/Sodium Chloride (Dextrose 5%-Normal Saline) 1,000 mls @ 100 mls/hr IV ASDIRECTED [facility] Last Admin: 08/06/17 15:11 Dose: 100 mls/hr Insulin Aspart (Novolog) 0 unit SUBCUT Q6H [facility] PRN Reason: Protocol Last Admin: 08/06/17 13:11 Dose: Not Given Lorazepam (Ativan) 0 mg IVPUSH Q1H PRN; Protocol PRN Reason: withdrawl Last Admin: 08/06/17 07:04 Dose: 1 mg Lorazepam (Ativan) 4 mg IVPUSH Q4H PRN PRN Reason: Anxiety Last Admin: 08/06/17 08:18 Dose: 4 mg Lorazepam (Ativan) 4 mg IVPUSH Q3H [facility] Last Admin: 08/06/17 14:47 Dose: 4 mg Methylprednisolone Sodium Succinate (Solu-Medrol) 80 mg IVPUSH Q12H [facility] Last Admin: 08/06/17 15:35 Dose: 80 mg Metoprolol Tartrate (Lopressor) 5 mg IVPUSH Q4H PRN PRN Reason: Tachycardia Last Admin: 08/04/17 22:56 Dose: 5 mg Mometasone Furoate/Formoterol Fumar (Dulera 100-5 Mcg) 0 puff IH BIDRT [facility] Last Admin: 08/06/17 03:18 Dose: Not Given Multivitamins (Thera) 1 each PO DAILY [facility] Last Admin: 08/06/17 09:34 Dose: Not Given Ondansetron HCl (Zofran Odt) 4 mg PO Q6H PRN PRN Reason: nausea, able to take PO Ondansetron HCl (Zofran) 4 mg IV Q6H PRN PRN Reason: Nausea/Vomiting Quetiapine Fumarate (Seroquel) 50 mg PO BEDTIME [facility] Last Admin: 08/05/17 22:15 Dose: Not Given Simvastatin (Zocor) 20 mg PO BEDTIME [facility] Last Admin: 08/05/17 22:15 Dose: Not Given Tamsulosin HCl (Flomax) 0.4 mg PO DAILY [facility] Last Admin: 08/06/17 09:34 Dose: Not Given Temazepam (Restoril) 15 mg PO BEDTIME PRN PRN Reason: Sleep Last Admin: 07/30/17 21:19 Dose: 15 mg Thiamine HCl (Vitamin B-1) 100 mg IV DAILY [facility] Last Admin: 08/06/17 10:13 Dose: 100 mg Discontinued Medications Albuterol/Ipratropium (Duoneb 3.0-0.5 Mg/3 Ml) 3 ml NEB Q4H PRN PRN Reason: Shortness Of Breath/wheezing Last Admin: 07/31/17 15:50 Dose: 3 ml Budesonide/Formoterol Fumarate (Symbicort 80-4.5 Mcg) 0 gm INH BIDRT [facility] Famotidine (Pepcid) 20 mg PO BID [facility] Last Admin: 07/31/17 09:12 Dose: Not Given Folic Acid (Folic Acid) 1 mg PO DAILY [facility] Last Admin: 07/31/17 09:12 Dose: Not Given Furosemide (Lasix) 40 mg IVPUSH NOW ONE Stop: 08/01/17 15:04 Last Admin: 08/01/17 15:34 Dose: 40 mg Furosemide (Lasix) 40 mg IVPUSH NOW ONE Stop: 08/02/17 05:01 Last Admin: 08/02/17 04:37 Dose: 40 mg Haloperidol Lactate (Haldol) 5 mg IVPUSH Q4H PRN PRN Reason: Anxiety Last Admin: 07/31/17 11:00 Dose: 5 mg Haloperidol Lactate (Haldol) 7 mg IVPUSH Q2H PRN PRN Reason: Anxiety Last Admin: 07/31/17 17:47 Dose: 7 mg Haloperidol Lactate (Haldol) Confirm Administered Dose 5 mg .ROUTE .STK-MED ONE Stop: 07/31/17 18:27 Last Admin: 07/31/17 19:01 Dose: Not Given Haloperidol Lactate (Haldol) 5 mg IVPUSH ONETIME ONE Stop: 07/31/17 18:27 Last Admin: 07/31/17 18:27 Dose: 5 mg Hydralazine HCl (Apresoline) 10 mg PO Q6H PRN PRN Reason: Hypertension Sodium Chloride (Normal Saline) 1,000 mls @ 75 mls/hr IV ASDIRECTED [facility] Last Admin: 07/31/17 20:20 Dose: 150 mls/hr Propofol (Diprivan 100 Ml) Confirm Administered Dose 100 mls @ as directed .ROUTE .STK-MED ONE Stop: 07/31/17 19:26 Last Admin: 07/31/17 20:55 Dose: Not Given Potassium Chloride/Sodium Chloride (Normal Saline With 20 Meq Kcl) 1,000 mls @ 75 mls/hr IV ASDIRECTED [facility] Last Infusion: 08/05/17 18:06 Dose: 100 mls/hr Dextrose/Sodium Chloride (Dextrose 5%-Normal Saline) 1,000 mls @ 50 mls/hr IV ASDIRECTED [facility] Last Admin: 08/05/17 01:10 Dose: 50 mls/hr Insulin Aspart (Novolog) 0 unit SUBCUT Q6H [facility] PRN Reason: Protocol Last Admin: 08/03/17 16:45 Dose: Not Given Iopamidol (Isovue-370 (76%)) 100 ml IVPUSH ONETIME ONE Stop: 07/30/17 16:56 Last Admin: 07/30/17 17:35 Dose: 80 ml Ketamine HCl (Ketalar) 100 mg IV ONETIME ONE Stop: 07/31/17 18:58 Last Admin: 07/31/17 18:57 Dose: 100 mg Ketamine HCl (Ketalar) 500 mg .ROUTE .STK-MED ONE Stop: 08/01/17 22:23 Lorazepam (Ativan) 0 mg IVPUSH Q4H PRN; Protocol PRN Reason: withdrawl Last Admin: 07/30/17 21:20 Dose: 1 mg Lorazepam (Ativan) 2 mg IVPUSH Q4H PRN PRN Reason: Seizures Lorazepam (Ativan) 1 mg PO Q4H PRN PRN Reason: anxiety Lorazepam (Ativan) 1 mg IVPUSH Q4H PRN PRN Reason: Anxiety Last Admin: 08/04/17 23:58 Dose: 1 mg Lorazepam (Ativan) Confirm Administered Dose 4 mg .ROUTE .STK-MED ONE Stop: 08/05/17 13:24 Last Admin: 08/05/17 13:32 Dose: Not Given Metoprolol Tartrate (Lopressor) 5 mg IVPUSH Q4H [facility] Last Admin: 08/06/17 07:50 Dose: Not Given Naloxone HCl (Narcan) 0.1 mg IVPUSH ONETIME ONE Stop: 07/30/17 16:54 Last Admin: 07/30/17 17:57 Dose: Not Given Naloxone HCl (Narcan) 0.2 mg IVPUSH ONETIME ONE Stop: 07/30/17 16:59 Last Admin: 07/30/17 17:01 Dose: 0.2 mg Naloxone HCl (Narcan) 0.2 mg IVPUSH ONETIME ONE Stop: 07/30/17 17:00 Last Admin: 07/30/17 17:10 Dose: Not Given Naloxone HCl (Narcan) 0.2 mg IVPUSH ONETIME ONE Stop: 07/30/17 17:14 Last Admin: 07/30/17 17:14 Dose: 0.2 mg Propofol (Diprivan 20 Ml) 100 mg IVPUSH ONETIME ONE Stop: 07/31/17 19:19 Last Admin: 07/31/17 19:18 Dose: 100 mg Propofol (Diprivan 20 Ml) 200 mg .ROUTE .STK-MED ONE Stop: 08/01/17 22:23 Sodium Chloride (Saline Flush) 10 ml FLUSH ONETIME ONE Stop: 07/30/17 16:56 Last Admin: 07/30/17 17:35 Dose: 10 ml Thiamine HCl (Vitamin B-1) 100 mg PO DAILY [facility] Last Admin: 07/31/17 09:13 Dose: Not Given - Exam Quality Assessment: Supplemental Oxygen, Urine Catheter, DVT Prophylaxis General: No Acute Distress, Sedated HEENT: Pupils Equal, Pupils Reactive Neck: Trachea Midline, No JVD Lungs: Normal Respiratory Effort Cardiovascular: Regular Rate, Regular Rhythm GI/Abdominal Exam: Normal Bowel Sounds, Soft, Non-Tender, No Organomegaly, No Distention (Male) Exam: Deferred Back Exam: Normal Inspection Extremities: Normal Inspection, Normal Range of Motion Skin: Warm Neurological: No New Focal Deficit Psy/Mental Status: Other (sedated) - Problem List & Annotations (1) Overdose SNOMED Code(s): 65696380 Code(s): T50.901A - POISONING BY UNSP DRUG/MEDS/BIOL SUBST, ACCIDENTAL, INIT Status: Acute Current Visit: Yes (2) Substance abuse SNOMED Code(s): 17510499 Code(s): F19.10 - OTHER PSYCHOACTIVE SUBSTANCE ABUSE, UNCOMPLICATED Status : Acute Priority: High Current Visit: Yes - Problem List Review Problem List Initiated/Reviewed/Updated: Yes - My Orders Last 24 Hours: My Active Orders 08/06/17 08:00 LORazepam [Ativan] 4 mg IVPUSH Q3H 08/07/17 04:00 CRP [C-REACTIVE PROTEIN] [CHEM] DAILY 08/07/17 05:00 BMP [BASIC METABOLIC PANEL,BMP] [CHEM] DAILY MAGNESIUM [CHEM] DAILY 08/08/17 04:00 CRP [C-REACTIVE PROTEIN] [CHEM] DAILY 08/08/17 05:00 BMP [BASIC METABOLIC PANEL,BMP] [CHEM] DAILY MAGNESIUM [CHEM] DAILY 08/09/17 04:00 CRP [C-REACTIVE PROTEIN] [CHEM] DAILY 08/09/17 05:00 BMP [BASIC METABOLIC PANEL,BMP] [CHEM] DAILY MAGNESIUM [CHEM] DAILY - Plan Plan:: I/P: Acute: Withdrawal Symptoms/DT - [facility] protocol -[facility] vent -sedation with propofol Elective mech vent, Day 4--->SUCCESSFUL EXTUBATION; maintained on BIPAP 05/03 PAF-->returned to sinus rhythm Neuro--> moving all 4 extremities, not following commands; decrease propofol Alcohol Abuse - Acute on Chronic - He reportedly drinks regularly - He would not explain how much he drinks or when. 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 - Counseled on Substance Abuse, although pt. was not willing to discuss it - SA/Psych consult------>postponed, unable to participate, will attempt weaning parameters, 08/03/17. Chronic: Daughter does note he has sleep apnea and is on CPAP\\BiPAP, HLD, HTN, advanced lung disease. Morbid obesity Plan: Admit to ICU MVI, Folic, Acid and Thiamine CIWA protocol Ativan for Abortive Seizure and Withdrawal Symptoms PRN meds for Withdrawal Symptoms Seizure Precautions SW/CM discharge planning SA/Psych consult Code Status:Full code. He does not have a PCP in Area
[2017-08-06] MEDS ORDERED: LORazepam 2 MG/ML MDV IVPUSH PRN (16:41)
[2017-08-06] MEDS: Levofloxacin/Dextrose 5%-Water 750 MG in Premix Bag 1 BAG IV SCH (19:41)
[2017-08-06] MEDS: Simvastatin 20 MG Tab PO SCH (21:08)
[2017-08-06] MEDS: QUEtiapine 25 MG Tab PO SCH (21:08)
[2017-08-06] MEDS: hydrALAZINE 20 MG/ML SDV IVPUSH PRN (21:09)
[2017-08-06] MEDS: Albuterol 0.083% 2.5 MG/3 ML Neb Soln NEB PRN (22:28)
[2017-08-07] MEDS: Insulin Aspart 100 Units/ML 3 ML Pen SUBCUT SCH ×5 (00:30→23:48)
[2017-08-07] MEDS ORDERED: Furosemide 20 MG/2 ML VIAL IVPUSH ONE (01:26)
[2017-08-07] MEDS: HYDROmorphone 1 MG/ML Syringe IVPUSH PRN ×6 (02:04→21:27)
[2017-08-07] MEDS: LORazepam 2 MG/ML MDV IVPUSH SCH ×8 (02:21→23:00)
[2017-08-07] MEDS: methylPREDNISolone Sodium Succinate 40 MG/1 ML SDV IVPUSH SCH ×2 (04:54→15:52)
[2017-08-07] MEDS: LORazepam 2 MG/ML MDV IVPUSH PRN (04:56)
[2017-08-07] MEDS: Dextrose 5%-0.9% NaCl 1,000 ML IV SCH ×2 (05:10→15:52)
[2017-08-07] MEDS: Albuterol/Ipratropium 3.0-0.5 MG/3 ML Neb Soln NEB SCH ×5 (06:37→21:23)
[2017-08-07] MEDS: Formoterol/Mometasone 100-5 MCG 8.8 GM Inhaler IH SCH ×2 (06:38→21:23)
[2017-08-07] MEDS: Famotidine 20 MG/2 ML SDV IVPUSH SCH ×2 (08:07→20:17)
[2017-08-07] MEDS: Thiamine 200 MG/2 ML MDV IV SCH (08:07)
[2017-08-07] MEDS: Folic Acid 50 MG/10 ML MDV IV SCH (08:08)
[2017-08-07] MEDS: Enoxaparin 40 MG/0.4 ML Syringe SUBCUT SCH (08:09)
[2017-08-07] MEDS: cloNIDine 0.1 MG Tab PO SCH ×2 (08:16→20:31)
[2017-08-07] MEDS: Tamsulosin 0.4 MG Cap.ER PO SCH (08:17)
[2017-08-07] MEDS: Multivitamins,Therapeutic Tab PO SCH (08:17)
[2017-08-07] MEDS: Allopurinol 100 MG Tab PO SCH (08:17)
[2017-08-07] MEDS: hydrALAZINE 20 MG/ML SDV IVPUSH PRN (09:02)
[2017-08-07] MEDS ORDERED: Albuterol 0.083% 2.5 MG/3 ML Neb Soln NEB PRN (09:18)
--- NOTE | 2017-08-07 09:19 | CR ---
Chest: Frontal view of the chest was obtained. Comparison: Prior chest x-ray of 08/04/17. New area of increased density is noted within the left upper chest which is an interval change from prior exam. Mild atelectasis is noted within the right lung base. Lungs otherwise are clear. Heart size and mediastinum are accentuated from technique. Previous right shoulder surgery is noted. Previous endotracheal tube and nasogastric tube have been removed. Impression: 1. New density within the left upper chest. Differential includes atelectasis, aspiration as well as new area of pneumonia. 2. Mild atelectasis within the right lung base. 3. Other stable findings. 4. Interval removal of endotracheal tube and nasogastric tube. Diagnostic code #3
[2017-08-07] MEDS ORDERED: Piperacillin/Tazobactam 4.5 GM in Sodium Chloride 0.9% 100 ML IV ONE (09:30)
--- NOTE | 2017-08-07 12:42 | PCM.PN ---
- General Info Date of Service: 08/07/17 Functional Status: Reports: Pain Controlled, Tolerating Diet, Urinating - Review of Systems General: Reports: No Symptoms HEENT: Reports: No Symptoms Pulmonary: Reports: No Symptoms Cardiovascular: Reports: No Symptoms Gastrointestinal: Reports: No Symptoms Genitourinary: Reports: No Symptoms Musculoskeletal: Reports: No Symptoms Skin: Reports: No Symptoms Neurological: Reports: No Symptoms Psychiatric: Reports: No Symptoms - Patient Data Vitals - Most Recent: Last Vital Signs Temp 36.7 C 08/07/17 11:04 Pulse 91 08/07/17 04:00 Resp 20 08/07/17 11:04 BP 147/64 H 08/07/17 12:24 Pulse Ox 92 L 08/07/17 11:04 Weight - Most Recent: 139.706 kg I&O - Last 24 Hours: Intake & Output 08/06/17 08/07/17 08/07/17 22:59 06:59 14:59 Intake Total 1420 1305 Output Total 1025 2150 775 Balance 395 -845 -775 Lab Results Last 24 Hours: Laboratory Results - last 24 hr 08/06/17 08/07/17 08/07/17 Range/Units 17:12 00:48 02:45 WBC (4.23-9.07) K/mm3 RBC (4.63-6.08) M/mm3 Hgb (13.7-17.5) gm/L Hct (40.1-51.0) % MCV (79.0-92.2) fl MCH (25.7-32.2) pg MCHC (32.2-35.5) g/dl RDW Std Deviation (35.1-43.9) fL Plt Count (163-337) K/mm3 MPV (9.4-12.3) fl Neut % (Auto) (34.0-67.9) % Lymph % (Auto) (21.8-53.1) % [place] % (Auto) (5.3-12.2) % Eos % (Auto) (0.8-7.0) Baso % (Auto) (0.1-1.2) % Neut # (Auto) (1.78-5.38) K/mm3 Lymph # (Auto) (1.32-3.57) K/mm3 [place] # (Auto) (0.30-0.82) K/mm3 Eos # (Auto) (0.04-0.54) K/mm3 Baso # (Auto) (0.01-0.08) K/mm3 Puncture Site Rt radial ABG pH 7.32 L (7.35-7.45) ABG pCO2 65.9 H (35.0-45.0) mmHg ABG pO2 54.0 L (80.0-100.0) mmHg ABG HCO3 33.3 H (22.0-26.0) meq/L ABG O2 Saturation 89.2 L (96.0-97.0) % ABG Base Excess 5.3 H (-2-2.0) O2 Delivery Device Cpap Oxygen Flow Rate 10.0 Sodium (136-145) mEq/L Potassium (3.5-5.1) mEq/L Chloride (98-107) mEq/L Carbon Dioxide (21-32) mEq/L Anion Gap (5-15) BUN (7-18) mg/dL Creatinine (0.7-1.3) mg/dL Est Cr Clr Drug Dosing mL/min Estimated GFR (MDRD) (>60) mL/min BUN/Creatinine Ratio (14-18) Glucose (80-115) mg/dL POC Glucose 123 H 124 H (80-115) mg/dL Calcium (8.5-10.1) mg/dL Magnesium (1.8-2.4) mg/dl C-Reactive Protein (<1.0) mg/dL 08/07/17 08/07/17 08/07/17 Range/Units 05:11 06:03 06:03 WBC (4.23-9.07) K/mm3 RBC (4.63-6.08) M/mm3 Hgb (13.7-17.5) gm/L Hct (40.1-51.0) % MCV (79.0-92.2) fl MCH (25.7-32.2) pg MCHC (32.2-35.5) g/dl RDW Std Deviation (35.1-43.9) fL Plt Count (163-337) K/mm3 MPV (9.4-12.3) fl Neut % (Auto) (34.0-67.9) % Lymph % (Auto) (21.8-53.1) % [place] % (Auto) (5.3-12.2) % Eos % (Auto) (0.8-7.0) Baso % (Auto) (0.1-1.2) % Neut # (Auto) (1.78-5.38) K/mm3 Lymph # (Auto) (1.32-3.57) K/mm3 [place] # (Auto) (0.30-0.82) K/mm3 Eos # (Auto) (0.04-0.54) K/mm3 Baso # (Auto) (0.01-0.08) K/mm3 Puncture Site ABG pH (7.35-7.45) ABG pCO2 (35.0-45.0) mmHg ABG pO2 (80.0-100.0) mmHg ABG HCO3 (22.0-26.0) meq/L ABG O2 Saturation (96.0-97.0) % ABG Base Excess (-2-2.0) O2 Delivery Device Oxygen Flow Rate Sodium 147 H (136-145) mEq/L Potassium 3.8 (3.5-5.1) mEq/L Chloride 107 (98-107) mEq/L Carbon Dioxide 32 (21-32) mEq/L Anion Gap 11.8 (5-15) BUN 21 H (7-18) mg/dL Creatinine 0.8 (0.7-1.3) mg/dL Est Cr Clr Drug Dosing 87.22 mL/min Estimated GFR (MDRD) > 60 (>60) mL/min BUN/Creatinine Ratio 26.3 H (14-18) Glucose 110 (80-115) mg/dL POC Glucose 100 (80-115) mg/dL Calcium 8.9 (8.5-10.1) mg/dL Magnesium 2.0 (1.8-2.4) mg/dl C-Reactive Protein 4.3 H* (<1.0) mg/dL 08/07/17 08/07/17 Range/Units 06:03 11:45 WBC 6.16 (4.23-9.07) K/mm3 RBC 4.67 (4.63-6.08) M/mm3 Hgb 15.2 (13.7-17.5) gm/L Hct 45.5 (40.1-51.0) % MCV 97.4 H (79.0-92.2) fl MCH 32.5 H (25.7-32.2) pg MCHC 33.4 (32.2-35.5) g/dl RDW Std Deviation 51.6 H (35.1-43.9) fL Plt Count 220 (163-337) K/mm3 MPV 9.6 (9.4-12.3) fl Neut % (Auto) 69.3 H (34.0-67.9) % Lymph % (Auto) 16.4 L (21.8-53.1) % [place] % (Auto) 12.7 H (5.3-12.2) % Eos % (Auto) 0 L (0.8-7.0) Baso % (Auto) 0.5 (0.1-1.2) % Neut # (Auto) 4.27 (1.78-5.38) K/mm3 Lymph # (Auto) 1.01 L (1.32-3.57) K/mm3 [place] # (Auto) 0.78 (0.30-0.82) K/mm3 Eos # (Auto) 0.00 L (0.04-0.54) K/mm3 Baso # (Auto) 0.03 (0.01-0.08) K/mm3 Puncture Site ABG pH (7.35-7.45) ABG pCO2 (35.0-45.0) mmHg ABG pO2 (80.0-100.0) mmHg ABG HCO3 (22.0-26.0) meq/L ABG O2 Saturation (96.0-97.0) % ABG Base Excess (-2-2.0) O2 Delivery Device Oxygen Flow Rate Sodium (136-145) mEq/L Potassium (3.5-5.1) mEq/L Chloride (98-107) mEq/L Carbon Dioxide (21-32) mEq/L Anion Gap (5-15) BUN (7-18) mg/dL Creatinine (0.7-1.3) mg/dL Est Cr Clr Drug Dosing mL/min Estimated GFR (MDRD) (>60) mL/min BUN/Creatinine Ratio (14-18) Glucose (80-115) mg/dL POC Glucose 169 H (80-115) mg/dL Calcium (8.5-10.1) mg/dL Magnesium (1.8-2.4) mg/dl C-Reactive Protein (<1.0) mg/dL Med Orders - Current: Current Medications Acetaminophen (Tylenol) 650 mg PO Q4H PRN PRN Reason: Pain (Mild 1-3)/fever Albuterol (Proventil Neb Soln) 2.5 mg NEB Q2H PRN PRN Reason: Shortness of Breath Albuterol/Ipratropium (Duoneb 3.0-0.5 Mg/3 Ml) 3 ml NEB Q4HRRT [facility] Last Admin: 08/07/17 10:40 Dose: 3 ml Allopurinol (Zyloprim) 350 mg PO DAILY [facility] Last Admin: 08/07/17 08:17 Dose: Not Given Clonidine HCl (Catapres) 0.1 mg PO Q12HR [facility] Last Admin: 08/07/17 08:16 Dose: Not Given Dextrose/Water (Dextrose 50% In Water) 50 ml IVPUSH ASDIRECTED PRN PRN Reason: Hypoglycemia Enoxaparin Sodium (Lovenox) 40 mg SUBCUT DAILY [facility] Last Admin: 08/07/17 08:09 Dose: 40 mg Famotidine (Pepcid) 20 mg IVPUSH BID [facility] Last Admin: 08/07/17 08:07 Dose: 20 mg Folic Acid (Folic Acid) 1 mg IV DAILY [facility] Last Admin: 08/07/17 08:08 Dose: 1 mg Haloperidol Lactate (Haldol) 4 mg IVPUSH Q6H PRN PRN Reason: restlessness Last Admin: 08/05/17 00:02 Dose: 4 mg Hydralazine HCl (Apresoline) 20 mg IVPUSH Q6H PRN PRN Reason: Hypertension Last Admin: 08/07/17 09:02 Dose: 20 mg Hydromorphone HCl (Dilaudid) 1 mg IVPUSH Q4H PRN PRN Reason: Pain Last Admin: 08/07/17 09:37 Dose: 1 mg Levofloxacin/Dextrose 750 mg/ (Premix) 150 mls @ 100 mls/hr IV Q24H [facility] Last Admin: 08/06/17 19:41 Dose: 100 mls/hr Propofol (Diprivan 100 Ml) 100 mls @ 17.16 mls/hr IV TITRATE [facility]; 20 MCG/KG/MIN PRN Reason: Protocol Last Titration: 08/05/17 08:34 Dose: 0 mcg/kg/min, 0 mls/hr Norepinephrine Bitartrate 4 mg (/ Dextrose/Water) 250 mls @ 7.5 mls/hr IV TITRATE [facility]; 2 MCG/MIN PRN Reason: Protocol Dextrose/Sodium Chloride (Dextrose 5%-Normal Saline) 1,000 mls @ 75 mls/hr IV ASDIRECTED [facility] Last Admin: 08/07/17 05:10 Dose: 75 mls/hr Piperacillin Sod/Tazobactam (Sod 4.5 gm/ Sodium Chloride) 100 mls @ 25 mls/hr IV Q6H [facility] Insulin Aspart (Novolog) 0 unit SUBCUT Q6H [facility] PRN Reason: Protocol Last Admin: 08/07/17 06:37 Dose: Not Given Lorazepam (Ativan) 0 mg IVPUSH Q1H PRN; Protocol PRN Reason: withdrawl Last Admin: 08/07/17 04:56 Dose: 1 mg Lorazepam (Ativan) 4 mg IVPUSH Q3H [facility] Last Admin: 08/07/17 10:47 Dose: 4 mg Lorazepam (Ativan) 4 mg IVPUSH Q5H PRN PRN Reason: Anxiety Methylprednisolone Sodium Succinate (Solu-Medrol) 80 mg IVPUSH Q12H [facility] Last Admin: 08/07/17 04:54 Dose: 80 mg Metoprolol Tartrate (Lopressor) 5 mg IVPUSH Q4H PRN PRN Reason: Tachycardia Last Admin: 08/04/17 22:56 Dose: 5 mg Mometasone Furoate/Formoterol Fumar (Dulera 100-5 Mcg) 0 puff IH BIDRT [facility] Last Admin: 08/07/17 06:38 Dose: Not Given Multivitamins (Thera) 1 each PO DAILY [facility] Last Admin: 08/07/17 08:17 Dose: Not Given Ondansetron HCl (Zofran Odt) 4 mg PO Q6H PRN PRN Reason: nausea, able to take PO Ondansetron HCl (Zofran) 4 mg IV Q6H PRN PRN Reason: Nausea/Vomiting Quetiapine Fumarate (Seroquel) 50 mg PO BEDTIME [facility] Last Admin: 12/15/17 21:08 Dose: Not Given Simvastatin (Zocor) 20 mg PO BEDTIME [facility] Last Admin: 08/06/17 21:08 Dose: Not Given Tamsulosin HCl (Flomax) 0.4 mg PO DAILY [facility] Last Admin: 08/07/17 08:17 Dose: Not Given Temazepam (Restoril) 15 mg PO BEDTIME PRN PRN Reason: Sleep Last Admin: 07/30/17 21:19 Dose: 15 mg Thiamine HCl (Vitamin B-1) 100 mg IV DAILY [facility] Last Admin: 08/07/17 08:07 Dose: 100 mg Discontinued Medications Albuterol (Proventil Neb Soln) 2.5 mg NEB Q4HRRT PRN PRN Reason: Shortness of Breath Last Admin: 08/06/17 22:28 Dose: 2.5 mg Albuterol/Ipratropium (Duoneb 3.0-0.5 Mg/3 Ml) 3 ml NEB Q4H PRN PRN Reason: Shortness Of Breath/wheezing Last Admin: 07/31/17 15:50 Dose: 3 ml Albuterol/Ipratropium (Duoneb 3.0-0.5 Mg/3 Ml) 3 ml NEB QIDRT [facility] Last Admin: 08/07/17 06:37 Dose: 3 ml Budesonide/Formoterol Fumarate (Symbicort 80-4.5 Mcg) 0 gm INH BIDRT [facility] Famotidine (Pepcid) 20 mg PO BID [facility] Last Admin: 07/31/17 09:12 Dose: Not Given Folic Acid (Folic Acid) 1 mg PO DAILY [facility] Last Admin: 07/31/17 09:12 Dose: Not Given Furosemide (Lasix) 40 mg IVPUSH NOW ONE Stop: 08/01/17 15:04 Last Admin: 08/01/17 15:34 Dose: 40 mg Furosemide (Lasix) 40 mg IVPUSH NOW ONE Stop: 08/02/17 05:01 Last Admin: 08/02/17 04:37 Dose: 40 mg Furosemide (Lasix) 20 mg IVPUSH NOW ONE Stop: 08/07/17 01:27 Last Admin: 08/07/17 01:38 Dose: 20 mg Haloperidol Lactate (Haldol) 5 mg IVPUSH Q4H PRN PRN Reason: Anxiety Last Admin: 07/31/17 11:00 Dose: 5 mg Haloperidol Lactate (Haldol) 7 mg IVPUSH Q2H PRN PRN Reason: Anxiety Last Admin: 07/31/17 17:47 Dose: 7 mg Haloperidol Lactate (Haldol) Confirm Administered Dose 5 mg .ROUTE .STK-MED ONE Stop: 07/31/17 18:27 Last Admin: 07/31/17 19:01 Dose: Not Given Haloperidol Lactate (Haldol) 5 mg IVPUSH ONETIME ONE Stop: 07/31/17 18:27 Last Admin: 07/31/17 18:27 Dose: 5 mg Hydralazine HCl (Apresoline) 10 mg PO Q6H PRN PRN Reason: Hypertension Hydromorphone HCl (Dilaudid) 1 mg IVPUSH Q4H PRN PRN Reason: Pain Last Admin: 08/06/17 15:11 Dose: 1 mg Hydromorphone HCl (Dilaudid) 0.5 mg IVPUSH Q4H PRN PRN Reason: Pain Last Admin: 08/06/17 22:19 Dose: 0.5 mg Sodium Chloride (Normal Saline) 1,000 mls @ 75 mls/hr IV ASDIRECTED [facility] Last Admin: 07/31/17 20:20 Dose: 150 mls/hr Propofol (Diprivan 100 Ml) Confirm Administered Dose 100 mls @ as directed .ROUTE .STK-MED ONE Stop: 07/31/17 19:26 Last Admin: 07/31/17 20:55 Dose: Not Given Potassium Chloride/Sodium Chloride (Normal Saline With 20 Meq Kcl) 1,000 mls @ 75 mls/hr IV ASDIRECTED [facility] Last Infusion: 08/05/17 18:06 Dose: 100 mls/hr Dextrose/Sodium Chloride (Dextrose 5%-Normal Saline) 1,000 mls @ 50 mls/hr IV ASDIRECTED [facility] Last Admin: 08/05/17 01:10 Dose: 50 mls/hr Dextrose/Sodium Chloride (Dextrose 5%-Normal Saline) 1,000 mls @ 100 mls/hr IV ASDIRECTED [facility] Last Admin: 08/06/17 15:11 Dose: 100 mls/hr Piperacillin Sod/Tazobactam (Sod 4.5 gm/ Sodium Chloride) 100 mls @ 200 mls/hr IV ONETIME ONE Stop: 08/07/17 09:59 Last Admin: 08/07/17 09:55 Dose: 200 mls/hr Insulin Aspart (Novolog) 0 unit SUBCUT Q6H [facility] PRN Reason: Protocol Last Admin: 08/03/17 16:45 Dose: Not Given Iopamidol (Isovue-370 (76%)) 100 ml IVPUSH ONETIME ONE Stop: 07/30/17 16:56 Last Admin: 07/30/17 17:35 Dose: 80 ml Ketamine HCl (Ketalar) 100 mg IV ONETIME ONE Stop: 07/31/17 18:58 Last Admin: 07/31/17 18:57 Dose: 100 mg Ketamine HCl (Ketalar) 500 mg .ROUTE .STK-MED ONE Stop: 08/01/17 22:23 Lorazepam (Ativan) 0 mg IVPUSH Q4H PRN; Protocol PRN Reason: withdrawl Last Admin: 07/30/17 21:20 Dose: 1 mg Lorazepam (Ativan) 2 mg IVPUSH Q4H PRN PRN Reason: Seizures Lorazepam (Ativan) 1 mg PO Q4H PRN PRN Reason: anxiety Lorazepam (Ativan) 1 mg IVPUSH Q4H PRN PRN Reason: Anxiety Last Admin: 08/04/17 23:58 Dose: 1 mg Lorazepam (Ativan) 4 mg IVPUSH Q4H PRN PRN Reason: Anxiety Last Admin: 08/06/17 08:18 Dose: 4 mg Lorazepam (Ativan) Confirm Administered Dose 4 mg .ROUTE .STK-MED ONE Stop: 08/05/17 13:24 Last Admin: 08/05/17 13:32 Dose: Not Given Metoprolol Tartrate (Lopressor) 5 mg IVPUSH Q4H [facility] Last Admin: 08/06/17 07:50 Dose: Not Given Naloxone HCl (Narcan) 0.1 mg IVPUSH ONETIME ONE Stop: 07/30/17 16:54 Last Admin: 07/30/17 17:57 Dose: Not Given Naloxone HCl (Narcan) 0.2 mg IVPUSH ONETIME ONE Stop: 07/30/17 16:59 Last Admin: 07/30/17 17:01 Dose: 0.2 mg Naloxone HCl (Narcan) 0.2 mg IVPUSH ONETIME ONE Stop: 07/30/17 17:00 Last Admin: 07/30/17 17:10 Dose: Not Given Naloxone HCl (Narcan) 0.2 mg IVPUSH ONETIME ONE Stop: 07/30/17 17:14 Last Admin: 07/30/17 17:14 Dose: 0.2 mg Propofol (Diprivan 20 Ml) 100 mg IVPUSH ONETIME ONE Stop: 07/31/17 19:19 Last Admin: 07/31/17 19:18 Dose: 100 mg Propofol (Diprivan 20 Ml) 200 mg .ROUTE .STK-MED ONE Stop: 08/01/17 22:23 Sodium Chloride (Saline Flush) 10 ml FLUSH ONETIME ONE Stop: 07/30/17 16:56 Last Admin: 07/30/17 17:35 Dose: 10 ml Thiamine HCl (Vitamin B-1) 100 mg PO DAILY [facility] Last Admin: 07/31/17 09:13 Dose: Not Given - Exam Quality Assessment: Supplemental Oxygen (BIPAP 18/6), Urine Catheter, DVT Prophylaxis General: Sedated HEENT: Pupils Equal, Pupils Reactive Neck: Trachea Midline, No JVD Lungs: Normal Respiratory Effort, Decreased Breath Sounds Cardiovascular: Regular Rate, Regular Rhythm GI/Abdominal Exam: Normal Bowel Sounds, Soft, Non-Tender, No Organomegaly, No Distention (Male) Exam: Deferred Back Exam: Normal Inspection Extremities: Normal Inspection Skin: Warm Neurological: No New Focal Deficit Psy/Mental Status: Other (sedated) - Problem List & Annotations (1) Overdose SNOMED Code(s): 92694788 Code(s): T50.901A - POISONING BY UNSP DRUG/MEDS/BIOL SUBST, ACCIDENTAL, INIT Status: Acute Current Visit: Yes (2) Substance abuse SNOMED Code(s): 50581926 Code(s): F19.10 - OTHER PSYCHOACTIVE SUBSTANCE ABUSE, UNCOMPLICATED Status : Acute Priority: High Current Visit: Yes - Problem List Review Problem List Initiated/Reviewed/Updated: Yes - My Orders Last 24 Hours: My Active Orders 08/06/17 16:41 LORazepam [Ativan] 4 mg IVPUSH Q5H PRN 08/07/17 02:00 HYDROmorphone [Dilaudid] 1 mg IVPUSH Q4H PRN 08/07/17 05:00 Dextrose 5%-0.9% NaCl [Dextrose 5%-Normal Saline] 1,000 ml IV ASDIRECTED 08/07/17 09:18 Albuterol [Proventil Neb Soln] 2.5 mg NEB Q2H PRN 08/07/17 10:00 Albuterol/Ipratropium [DuoNeb 3.0-0.5 MG/3 ML] 3 ml NEB Q4HRRT 08/07/17 15:00 Piperacillin/Tazobactam [Zosyn] 4.5 gm Sodium Chloride 0.9% [Normal Saline] 100 ml IV Q6H 08/08/17 04:00 CRP [C-REACTIVE PROTEIN] [CHEM] DAILY 08/08/17 05:00 BMP [BASIC METABOLIC PANEL,BMP] [CHEM] DAILY CBC WITH AUTO DIFF [HEME] DAILY MAGNESIUM [CHEM] DAILY 08/09/17 04:00 CRP [C-REACTIVE PROTEIN] [CHEM] DAILY 08/09/17 05:00 BMP [BASIC METABOLIC PANEL,BMP] [CHEM] DAILY CBC WITH AUTO DIFF [HEME] DAILY MAGNESIUM [CHEM] DAILY 08/10/17 05:00 CBC WITH AUTO DIFF [HEME] DAILY 08/11/17 05:00 CBC WITH AUTO DIFF [HEME] DAILY - Plan Plan:: I/P: Acute: Withdrawal Symptoms/DT - [facility] protocol -[facility] vent -sedation with propofol Elective [facility] vent, Day 4--->SUCCESSFUL EXTUBATION; BIPAP / HCAP-->started Zosyn, continue Levoquin PAF-->returned to sinus rhythm Neuro--> moving all 4 extremities, not following commands; decrease propofol Alcohol Abuse - Acute on Chronic - He reportedly drinks regularly - He would not explain how much he drinks or when. 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 - Counseled on Substance Abuse, although pt. was not willing to discuss it - SA/Psych consult------>postponed, unable to participate, will attempt weaning parameters, 08/03/17. Chronic: Daughter does note he has sleep apnea and is on CPAP\\BiPAP, HLD, HTN, advanced lung disease. Morbid obesity Plan: Admit to ICU MVI, Folic, Acid and Thiamine [facility] protocol Ativan for Abortive Seizure and Withdrawal Symptoms PRN meds for Withdrawal Symptoms Seizure Precautions SW/CM discharge planning SA/Psych consult Code Status:Full code. He does not have a PCP in Area
[2017-08-07] MEDS: Piperacillin/Tazobactam 4.5 GM in Sodium Chloride 0.9% 100 ML IV SCH ×2 (15:52→21:21)
[2017-08-07] MEDS: Levofloxacin/Dextrose 5%-Water 750 MG in Premix Bag 1 BAG IV SCH (20:09)
[2017-08-07] MEDS: Simvastatin 20 MG Tab PO SCH (20:31)
[2017-08-07] MEDS: QUEtiapine 25 MG Tab PO SCH (20:31)
[2017-08-08] MEDS: HYDROmorphone 1 MG/ML Syringe IVPUSH PRN ×3 (01:28→10:00)
[2017-08-08] MEDS: LORazepam 2 MG/ML MDV IVPUSH SCH ×7 (02:00→20:25)
[2017-08-08] MEDS: Albuterol/Ipratropium 3.0-0.5 MG/3 ML Neb Soln NEB SCH ×6 (02:10→21:51)
[2017-08-08] MEDS: Piperacillin/Tazobactam 4.5 GM in Sodium Chloride 0.9% 100 ML IV SCH ×4 (03:03→22:30)
[2017-08-08] MEDS: methylPREDNISolone Sodium Succinate 40 MG/1 ML SDV IVPUSH SCH ×2 (04:18→15:59)
[2017-08-08] MEDS: Dextrose 5%-0.9% NaCl 1,000 ML IV SCH ×2 (05:18→18:34)
[2017-08-08] MEDS: Formoterol/Mometasone 100-5 MCG 8.8 GM Inhaler IH SCH ×2 (05:37→21:52)
[2017-08-08] MEDS: Insulin Aspart 100 Units/ML 3 ML Pen SUBCUT SCH ×3 (07:08→18:43)
[2017-08-08] MEDS: Thiamine 200 MG/2 ML MDV IV SCH (08:00)
[2017-08-08] MEDS: Enoxaparin 40 MG/0.4 ML Syringe SUBCUT SCH (08:01)
[2017-08-08] MEDS: Folic Acid 50 MG/10 ML MDV IV SCH (08:02)
[2017-08-08] MEDS: Famotidine 20 MG/2 ML SDV IVPUSH SCH ×2 (08:03→20:53)
[2017-08-08] MEDS: Tamsulosin 0.4 MG Cap.ER PO SCH (08:55)
[2017-08-08] MEDS: cloNIDine 0.1 MG Tab PO SCH ×2 (08:55→20:22)
[2017-08-08] MEDS: Allopurinol 100 MG Tab PO SCH (08:56)
[2017-08-08] MEDS: Multivitamins,Therapeutic Tab PO SCH (08:56)
--- NOTE | 2017-08-08 10:43 | PCM.PN ---
- General Info Date of Service: 08/08/17 Admission Dx/Problem (Free Text): Follow Up Subjective Update: NPO, sedated; [facility] vent day 2; no change in vent settings before rounds Functional Status: Reports: Pain Controlled, Urinating. Denies: Tolerating Diet , Ambulating - Review of Systems General: Reports: No Symptoms HEENT: Reports: No Symptoms Pulmonary: Reports: No Symptoms Cardiovascular: Denies: Palpitations Gastrointestinal: Denies: Abdominal Pain, Nausea, Vomiting Genitourinary: Reports: No Symptoms Musculoskeletal: Reports: No Symptoms Neurological: Reports: Other (Sedated/Obtunded) Psychiatric: Reports: Other Systems Review Comment:: No significant overnight or acute issues. He has been sedated and currently maintained on ativan and dilaudid. He is on D5NS for nutritional intake. He is on BIPAP on and off. No family members present at bedside at the time of my examination. ROS is limited by current AMS. - Patient Data Vitals - Most Recent: Last Vital Signs Temp 35.9 C 08/08/17 08:00 Pulse 100 08/08/17 08:00 Resp 13 08/08/17 08:00 BP 167/103 H 08/08/17 08:55 Pulse Ox 93 L 08/08/17 08:00 Weight - Most Recent: 139.026 kg I&O - Last 24 Hours: Intake & Output 08/07/17 08/08/17 08/08/17 22:59 06:59 14:59 Intake Total 1246 662 515 Output Total 825 975 625 Balance 421 -313 -110 Lab Results Last 24 Hours: Laboratory Results - last 24 hr 08/07/17 08/07/17 08/07/17 Range/Units 06:03 11:45 16:13 WBC 6.16 (4.23-9.07) K/mm3 RBC 4.67 (4.63-6.08) M/mm3 Hgb 15.2 (13.7-17.5) gm/L Hct 45.5 (40.1-51.0) % MCV 97.4 H (79.0-92.2) fl MCH 32.5 H (25.7-32.2) pg MCHC 33.4 (32.2-35.5) g/dl RDW Std Deviation 51.6 H (35.1-43.9) fL Plt Count 220 (163-337) K/mm3 MPV 9.6 (9.4-12.3) fl Neut % (Auto) 69.3 H (34.0-67.9) % Lymph % (Auto) 16.4 L (21.8-53.1) % Meigs % (Auto) 12.7 H (5.3-12.2) % Eos % (Auto) 0 L (0.8-7.0) Baso % (Auto) 0.5 (0.1-1.2) % Neut # (Auto) 4.27 (1.78-5.38) K/mm3 Lymph # (Auto) 1.01 L (1.32-3.57) K/mm3 Meigs # (Auto) 0.78 (0.30-0.82) K/mm3 Eos # (Auto) 0.00 L (0.04-0.54) K/mm3 Baso # (Auto) 0.03 (0.01-0.08) K/mm3 Puncture Site ABG pH (7.35-7.45) ABG pCO2 (35.0-45.0) mmHg ABG pO2 (80.0-100.0) mmHg ABG HCO3 (22.0-26.0) meq/L ABG O2 Saturation (96.0-97.0) % ABG Base Excess (-2-2.0) A-a Gradient mmHg O2 Delivery Device FiO2 (21.00-100.00) % Blood Gas Comments Sodium (136-145) mEq/L Potassium (3.5-5.1) mEq/L Chloride (98-107) mEq/L Carbon Dioxide (21-32) mEq/L Anion Gap (5-15) BUN (7-18) mg/dL Creatinine (0.7-1.3) mg/dL Est Cr Clr Drug Dosing mL/min Estimated GFR (MDRD) (>60) mL/min BUN/Creatinine Ratio (14-18) Glucose (80-115) mg/dL POC Glucose 169 H 92 (80-115) mg/dL Calcium (8.5-10.1) mg/dL Magnesium (1.8-2.4) mg/dl C-Reactive Protein (<1.0) mg/dL 08/07/17 08/08/17 08/08/17 Range/Units 23:47 05:50 06:16 WBC (4.23-9.07) K/mm3 RBC (4.63-6.08) M/mm3 Hgb (13.7-17.5) gm/L Hct (40.1-51.0) % MCV (79.0-92.2) fl MCH (25.7-32.2) pg MCHC (32.2-35.5) g/dl RDW Std Deviation (35.1-43.9) fL Plt Count (163-337) K/mm3 MPV (9.4-12.3) fl Neut % (Auto) (34.0-67.9) % Lymph % (Auto) (21.8-53.1) % Meigs % (Auto) (5.3-12.2) % Eos % (Auto) (0.8-7.0) Baso % (Auto) (0.1-1.2) % Neut # (Auto) (1.78-5.38) K/mm3 Lymph # (Auto) (1.32-3.57) K/mm3 Meigs # (Auto) (0.30-0.82) K/mm3 Eos # (Auto) (0.04-0.54) K/mm3 Baso # (Auto) (0.01-0.08) K/mm3 Puncture Site Lt brachial ABG pH 7.32 L (7.35-7.45) ABG pCO2 67.4 H (35.0-45.0) mmHg ABG pO2 62.0 L (80.0-100.0) mmHg ABG HCO3 34.1 H (22.0-26.0) meq/L ABG O2 Saturation 91.9 L (96.0-97.0) % ABG Base Excess 6.0 H (-2-2.0) A-a Gradient 142 mmHg O2 Delivery Device Bipap FiO2 45.00 (21.00-100.00) % Blood Gas Comments Bipap 16/8 Sodium (136-145) mEq/L Potassium (3.5-5.1) mEq/L Chloride (98-107) mEq/L Carbon Dioxide (21-32) mEq/L Anion Gap (5-15) BUN (7-18) mg/dL Creatinine (0.7-1.3) mg/dL Est Cr Clr Drug Dosing mL/min Estimated GFR (MDRD) (>60) mL/min BUN/Creatinine Ratio (14-18) Glucose (80-115) mg/dL POC Glucose 131 H 108 (80-115) mg/dL Calcium (8.5-10.1) mg/dL Magnesium (1.8-2.4) mg/dl C-Reactive Protein (<1.0) mg/dL 08/08/17 08/08/17 08/08/17 Range/Units 06:29 06:29 06:29 WBC 4.93 (4.23-9.07) K/mm3 RBC 4.72 (4.63-6.08) M/mm3 Hgb 14.8 (13.7-17.5) gm/L Hct 46.7 (40.1-51.0) % MCV 98.9 H (79.0-92.2) fl MCH 31.4 (25.7-32.2) pg MCHC 31.7 L (32.2-35.5) g/dl RDW Std Deviation 50.0 H (35.1-43.9) fL Plt Count 203 (163-337) K/mm3 MPV 9.0 L (9.4-12.3) fl Neut % (Auto) 75.3 H (34.0-67.9) % Lymph % (Auto) 15.6 L (21.8-53.1) % Meigs % (Auto) 7.9 (5.3-12.2) % Eos % (Auto) 0 L (0.8-7.0) Baso % (Auto) 0.2 (0.1-1.2) % Neut # (Auto) 3.71 (1.78-5.38) K/mm3 Lymph # (Auto) 0.77 L (1.32-3.57) K/mm3 Meigs # (Auto) 0.39 (0.30-0.82) K/mm3 Eos # (Auto) 0.00 L (0.04-0.54) K/mm3 Baso # (Auto) 0.01 (0.01-0.08) K/mm3 Puncture Site ABG pH (7.35-7.45) ABG pCO2 (35.0-45.0) mmHg ABG pO2 (80.0-100.0) mmHg ABG HCO3 (22.0-26.0) meq/L ABG O2 Saturation (96.0-97.0) % ABG Base Excess (-2-2.0) A-a Gradient mmHg O2 Delivery Device FiO2 (21.00-100.00) % Blood Gas Comments Sodium 147 H (136-145) mEq/L Potassium 4.4 (3.5-5.1) mEq/L Chloride 107 (98-107) mEq/L Carbon Dioxide 34 H (21-32) mEq/L Anion Gap 10.4 (5-15) BUN 21 H (7-18) mg/dL Creatinine 0.9 (0.7-1.3) mg/dL Est Cr Clr Drug Dosing 77.52 mL/min Estimated GFR (MDRD) > 60 (>60) mL/min BUN/Creatinine Ratio 23.3 H (14-18) Glucose 137 H (80-115) mg/dL POC Glucose (80-115) mg/dL Calcium 8.6 (8.5-10.1) mg/dL Magnesium 2.2 (1.8-2.4) mg/dl C-Reactive Protein 4.5 H* (<1.0) mg/dL Med Orders - Current: Current Medications Acetaminophen (Tylenol) 650 mg PO Q4H PRN PRN Reason: Pain (Mild 1-3)/fever Albuterol (Proventil Neb Soln) 2.5 mg NEB Q2H PRN PRN Reason: Shortness of Breath Albuterol/Ipratropium (Duoneb 3.0-0.5 Mg/3 Ml) 3 ml NEB Q4HRRT PENDING SALE TO [facility] Last Admin: 08/08/17 10:32 Dose: 3 ml Allopurinol (Zyloprim) 350 mg PO DAILY PENDING SALE TO [facility] Last Admin: 08/08/17 08:56 Dose: Not Given Clonidine HCl (Catapres) 0.1 mg PO Q12HR PENDING SALE TO [facility] Last Admin: 08/08/17 08:55 Dose: Not Given Dextrose/Water (Dextrose 50% In Water) 50 ml IVPUSH ASDIRECTED PRN PRN Reason: Hypoglycemia Enoxaparin Sodium (Lovenox) 40 mg SUBCUT DAILY PENDING SALE TO [facility] Last Admin: 08/08/17 08:01 Dose: 40 mg Famotidine (Pepcid) 20 mg IVPUSH BID PENDING SALE TO [facility] Last Admin: 08/08/17 08:03 Dose: 20 mg Folic Acid (Folic Acid) 1 mg IV DAILY PENDING SALE TO [facility] Last Admin: 08/08/17 08:02 Dose: 1 mg Haloperidol Lactate (Haldol) 4 mg IVPUSH Q6H PRN PRN Reason: restlessness Last Admin: 08/05/17 00:02 Dose: 4 mg Hydralazine HCl (Apresoline) 20 mg IVPUSH Q6H PRN PRN Reason: Hypertension Last Admin: 08/07/17 09:02 Dose: 20 mg Hydromorphone HCl (Dilaudid) 1 mg IVPUSH Q4H PRN PRN Reason: Pain Last Admin: 08/08/17 10:00 Dose: 1 mg Levofloxacin/Dextrose 750 mg/ (Premix) 150 mls @ 100 mls/hr IV Q24H PENDING SALE TO [facility] Last Admin: 08/07/17 20:09 Dose: 100 mls/hr Propofol (Diprivan 100 Ml) 100 mls @ 17.16 mls/hr IV TITRATE HANNAH; 20 MCG/KG/MIN PRN Reason: Protocol Last Titration: 08/05/17 08:34 Dose: 0 mcg/kg/min, 0 mls/hr Norepinephrine Bitartrate 4 mg (/ Dextrose/Water) 250 mls @ 7.5 mls/hr IV TITRATE HANNAH; 2 MCG/MIN PRN Reason: Protocol Dextrose/Sodium Chloride (Dextrose 5%-Normal Saline) 1,000 mls @ 75 mls/hr IV ASDIRECTED PENDING SALE TO [facility] Last Admin: 08/08/17 05:18 Dose: 75 mls/hr Piperacillin Sod/Tazobactam (Sod 4.5 gm/ Sodium Chloride) 100 mls @ 25 mls/hr IV Q6H PENDING SALE TO [facility] Last Admin: 08/08/17 08:02 Dose: 25 mls/hr Insulin Aspart (Novolog) 0 unit SUBCUT Q6H HANNAH PRN Reason: Protocol Last Admin: 08/08/17 07:08 Dose: Not Given Lorazepam (Ativan) 0 mg IVPUSH Q1H PRN; Protocol PRN Reason: withdrawl Last Admin: 08/07/17 04:56 Dose: 1 mg Lorazepam (Ativan) 4 mg IVPUSH Q3H HANNAH Last Admin: 08/08/17 07:58 Dose: 4 mg Lorazepam (Ativan) 4 mg IVPUSH Q5H PRN PRN Reason: Anxiety Last Admin: 08/07/17 21:38 Dose: 4 mg Methylprednisolone Sodium Succinate (Solu-Medrol) 80 mg IVPUSH Q12H PENDING SALE TO [facility] Last Admin: 08/08/17 04:18 Dose: 80 mg Metoprolol Tartrate (Lopressor) 5 mg IVPUSH Q4H PRN PRN Reason: Tachycardia Last Admin: 08/04/17 22:56 Dose: 5 mg Mometasone Furoate/Formoterol Fumar (Dulera 100-5 Mcg) 0 puff IH BIDRT PENDING SALE TO [facility] Last Admin: 08/08/17 05:37 Dose: Not Given Multivitamins (Thera) 1 each PO DAILY PENDING SALE TO [facility] Last Admin: 08/08/17 08:56 Dose: Not Given Ondansetron HCl (Zofran Odt) 4 mg PO Q6H PRN PRN Reason: nausea, able to take PO Ondansetron HCl (Zofran) 4 mg IV Q6H PRN PRN Reason: Nausea/Vomiting Quetiapine Fumarate (Seroquel) 50 mg PO BEDTIME PENDING SALE TO [facility] Last Admin: 08/07/17 20:31 Dose: Not Given Simvastatin (Zocor) 20 mg PO BEDTIME PENDING SALE TO [facility] Last Admin: 08/07/17 20:31 Dose: Not Given Tamsulosin HCl (Flomax) 0.4 mg PO DAILY PENDING SALE TO [facility] Last Admin: 08/08/17 08:55 Dose: Not Given Temazepam (Restoril) 15 mg PO BEDTIME PRN PRN Reason: Sleep Last Admin: 07/30/17 21:19 Dose: 15 mg Thiamine HCl (Vitamin B-1) 100 mg IV DAILY PENDING SALE TO [facility] Last Admin: 08/08/17 08:00 Dose: 100 mg Discontinued Medications Albuterol (Proventil Neb Soln) 2.5 mg NEB Q4HRRT PRN PRN Reason: Shortness of Breath Last Admin: 08/06/17 22:28 Dose: 2.5 mg Albuterol/Ipratropium (Duoneb 3.0-0.5 Mg/3 Ml) 3 ml NEB Q4H PRN PRN Reason: Shortness Of Breath/wheezing Last Admin: 07/31/17 15:50 Dose: 3 ml Albuterol/Ipratropium (Duoneb 3.0-0.5 Mg/3 Ml) 3 ml NEB QIDRT HANNAH Last Admin: 08/07/17 06:37 Dose: 3 ml Budesonide/Formoterol Fumarate (Symbicort 80-4.5 Mcg) 0 gm INH BIDRT HANNAH Famotidine (Pepcid) 20 mg PO BID PENDING SALE TO [facility] Last Admin: 07/31/17 09:12 Dose: Not Given Folic Acid (Folic Acid) 1 mg PO DAILY PENDING SALE TO [facility] Last Admin: 07/31/17 09:12 Dose: Not Given Furosemide (Lasix) 40 mg IVPUSH NOW ONE Stop: 08/01/17 15:04 Last Admin: 08/01/17 15:34 Dose: 40 mg Furosemide (Lasix) 40 mg IVPUSH NOW ONE Stop: 08/02/17 05:01 Last Admin: 08/02/17 04:37 Dose: 40 mg Furosemide (Lasix) 20 mg IVPUSH NOW ONE Stop: 08/07/17 01:27 Last Admin: 08/07/17 01:38 Dose: 20 mg Haloperidol Lactate (Haldol) 5 mg IVPUSH Q4H PRN PRN Reason: Anxiety Last Admin: 07/31/17 11:00 Dose: 5 mg Haloperidol Lactate (Haldol) 7 mg IVPUSH Q2H PRN PRN Reason: Anxiety Last Admin: 07/31/17 17:47 Dose: 7 mg Haloperidol Lactate (Haldol) Confirm Administered Dose 5 mg .ROUTE .STK-MED ONE Stop: 07/31/17 18:27 Last Admin: 07/31/17 19:01 Dose: Not Given Haloperidol Lactate (Haldol) 5 mg IVPUSH ONETIME ONE Stop: 07/31/17 18:27 Last Admin: 07/31/17 18:27 Dose: 5 mg Hydralazine HCl (Apresoline) 10 mg PO Q6H PRN PRN Reason: Hypertension Hydromorphone HCl (Dilaudid) 1 mg IVPUSH Q4H PRN PRN Reason: Pain Last Admin: 08/06/17 15:11 Dose: 1 mg Hydromorphone HCl (Dilaudid) 0.5 mg IVPUSH Q4H PRN PRN Reason: Pain Last Admin: 08/06/17 22:19 Dose: 0.5 mg Sodium Chloride (Normal Saline) 1,000 mls @ 75 mls/hr IV ASDIRECTED PENDING SALE TO [facility] Last Admin: 07/31/17 20:20 Dose: 150 mls/hr Propofol (Diprivan 100 Ml) Confirm Administered Dose 100 mls @ as directed .ROUTE .STK-MED ONE Stop: 07/31/17 19:26 Last Admin: 07/31/17 20:55 Dose: Not Given Potassium Chloride/Sodium Chloride (Normal Saline With 20 Meq Kcl) 1,000 mls @ 75 mls/hr IV ASDIRECTED PENDING SALE TO [facility] Last Infusion: 08/05/17 18:06 Dose: 100 mls/hr Dextrose/Sodium Chloride (Dextrose 5%-Normal Saline) 1,000 mls @ 50 mls/hr IV ASDIRECTED PENDING SALE TO [facility] Last Admin: 08/05/17 01:10 Dose: 50 mls/hr Dextrose/Sodium Chloride (Dextrose 5%-Normal Saline) 1,000 mls @ 100 mls/hr IV ASDIRECTED PENDING SALE TO [facility] Last Admin: 08/06/17 15:11 Dose: 100 mls/hr Piperacillin Sod/Tazobactam (Sod 4.5 gm/ Sodium Chloride) 100 mls @ 200 mls/hr IV ONETIME ONE Stop: 08/07/17 09:59 Last Admin: 08/07/17 09:55 Dose: 200 mls/hr Insulin Aspart (Novolog) 0 unit SUBCUT Q6H PENDING SALE TO [facility] PRN Reason: Protocol Last Admin: 08/03/17 16:45 Dose: Not Given Iopamidol (Isovue-370 (76%)) 100 ml IVPUSH ONETIME ONE Stop: 07/30/17 16:56 Last Admin: 07/30/17 17:35 Dose: 80 ml Ketamine HCl (Ketalar) 100 mg IV ONETIME ONE Stop: 07/31/17 18:58 Last Admin: 07/31/17 18:57 Dose: 100 mg Ketamine HCl (Ketalar) 500 mg .ROUTE .STK-MED ONE Stop: 08/01/17 22:23 Lorazepam (Ativan) 0 mg IVPUSH Q4H PRN; Protocol PRN Reason: withdrawl Last Admin: 07/30/17 21:20 Dose: 1 mg Lorazepam (Ativan) 2 mg IVPUSH Q4H PRN PRN Reason: Seizures Lorazepam (Ativan) 1 mg PO Q4H PRN PRN Reason: anxiety Lorazepam (Ativan) 1 mg IVPUSH Q4H PRN PRN Reason: Anxiety Last Admin: 08/04/17 23:58 Dose: 1 mg Lorazepam (Ativan) 4 mg IVPUSH Q4H PRN PRN Reason: Anxiety Last Admin: 08/06/17 08:18 Dose: 4 mg Lorazepam (Ativan) Confirm Administered Dose 4 mg .ROUTE .STK-MED ONE Stop: 08/05/17 13:24 Last Admin: 08/05/17 13:32 Dose: Not Given Metoprolol Tartrate (Lopressor) 5 mg IVPUSH Q4H PENDING SALE TO [facility] Last Admin: 08/06/17 07:50 Dose: Not Given Naloxone HCl (Narcan) 0.1 mg IVPUSH ONETIME ONE Stop: 07/30/17 16:54 Last Admin: 07/30/17 17:57 Dose: Not Given Naloxone HCl (Narcan) 0.2 mg IVPUSH ONETIME ONE Stop: 07/30/17 16:59 Last Admin: 07/30/17 17:01 Dose: 0.2 mg Naloxone HCl (Narcan) 0.2 mg IVPUSH ONETIME ONE Stop: 07/30/17 17:00 Last Admin: 07/30/17 17:10 Dose: Not Given Naloxone HCl (Narcan) 0.2 mg IVPUSH ONETIME ONE Stop: 07/30/17 17:14 Last Admin: 07/30/17 17:14 Dose: 0.2 mg Propofol (Diprivan 20 Ml) 100 mg IVPUSH ONETIME ONE Stop: 07/31/17 19:19 Last Admin: 07/31/17 19:18 Dose: 100 mg Propofol (Diprivan 20 Ml) 200 mg .ROUTE .STK-MED ONE Stop: 08/01/17 22:23 Sodium Chloride (Saline Flush) 10 ml FLUSH ONETIME ONE Stop: 07/30/17 16:56 Last Admin: 07/30/17 17:35 Dose: 10 ml Thiamine HCl (Vitamin B-1) 100 mg PO DAILY PENDING SALE TO [facility] Last Admin: 07/31/17 09:13 Dose: Not Given - Exam Quality Assessment: Supplemental Oxygen General: Sedated, Obtunded HEENT: Pupils Equal, Pupils Reactive Neck: No JVD, No Thyromegaly Lungs: Clear to Auscultation, Normal Respiratory Effort, Decreased Breath Sounds Cardiovascular: Regular Rate, Regular Rhythm GI/Abdominal Exam: Normal Bowel Sounds, Soft, Non-Tender, No Distention, No Abnormal Bruit, Other (Obese) (Male) Exam: Other (Indwelling hardy catheter) Back Exam: Other (Deferred) Extremities: Normal Inspection, No Pedal Edema, Normal Capillary Refill Peripheral Pulses: 2+: Dorsalis Pedis (L), Dorsalis Pedis (R) Skin: Warm, Dry, Intact Neurological: Other (He is sedated and obtunded) Physical Findings Comments:: Physical exam is limited by his current AMS - Problem List Review Problem List Initiated/Reviewed/Updated: Yes - Plan Plan:: I/P: Acute: AMS/Acute Encephalopathy - Likely 2/2 toxic/metabolic - He is currently getting scheduled ativan and dialudid - Sedation and Pain vacation with goals to come off BIPAP - May consider CT scan in AM if not improvement - Aspiration precaution HCAP/Aspiration Syndrome - S/P Mechanical Vent Placement - He is now breathing on his own - Will d/c BIPAP and see if he can be maintained on supplemental O2 only via NC - Continue routine respiratory care, intravenous Zosyn and Levaquin - Recent CXR: new density within left upper chest - Serial CXR Alcohol Abuse - Acute on Chronic - He reportedly drinks regularly - He would not explain how much he drinks or when. 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 was not willing to discuss it - SA/Psych consult------>postponed, unable to participate, will attempt weaning parameters, 08/03/17 Resolved: Withdrawal Symptoms/DT - CIWAA protocol - Mech vent - Sedation with propofol Elective Mech Vent - For 4 days - SUCCESSFUL EXTUBATION; BIPAP 18/ Paroxysmal Atrial Fibrillation - Returned to sinus rhythm Chronic: Daughter does note he has sleep apnea and is on CPAP\\BiPAP, HLD, HTN, advanced lung disease. Morbid obesity Plan: He has not made much progress since extubation Continue: MVI, Folic, Acid, Thiamine/CIWA protocol Ativan for Abortive Seizure and Withdrawal Symptoms PRN meds for Withdrawal Symptoms Aspiration/Seizure Precautions Consider TPN if no improvement in MS tomorrow SW/CM discharge planning SA/Psych consult Prognosis is guarded Code Status:Full code. He does not have a PCP in Area
[2017-08-08] MEDS ORDERED: cloNIDine 0.3 MG/Day Transdermal Patch TRDERM ONE (15:46)
[2017-08-08] MEDS ORDERED: HYDROmorphone 0.5 MG/0.5 ML Syringe IVPUSH ONE (15:47)
--- NOTE | 2017-08-08 16:06 | PCM.SN ---
- Free Text/Narrative Note: Seen and re-examined patient. He is now off BIPAP on nasal canula sating at 89- 92%. We held his benzo and narcotic medications due to sedation. He has been moaning and groaning but not still sedated. He is not alert or awake. Spoke to his and explained to her our goal of making her awake so we can start oral intake. We will re-consider low dose Dilaudid for pain control and continue to hold off ativan. was in agreement with the medical plan. If he continues to be like this in am, we will consider TPN for nourishment.
[2017-08-08] MEDS: QUEtiapine 25 MG Tab PO SCH (20:23)
[2017-08-08] MEDS: Simvastatin 20 MG Tab PO SCH (20:23)
[2017-08-08] MEDS: Levofloxacin/Dextrose 5%-Water 750 MG in Premix Bag 1 BAG IV SCH (20:52)
[2017-08-08] MEDS: HYDROmorphone 0.5 MG/0.5 ML Syringe IVPUSH PRN (22:26)
[2017-08-09] MEDS: Albuterol/Ipratropium 3.0-0.5 MG/3 ML Neb Soln NEB SCH ×6 (02:07→22:27)
[2017-08-09] MEDS: LORazepam 2 MG/ML MDV IVPUSH SCH ×7 (02:39→20:29)
[2017-08-09] MEDS: Insulin Aspart 100 Units/ML 3 ML Pen SUBCUT SCH ×4 (02:39→19:34)
[2017-08-09] MEDS: Piperacillin/Tazobactam 4.5 GM in Sodium Chloride 0.9% 100 ML IV SCH ×3 (03:44→15:39)
[2017-08-09] MEDS: methylPREDNISolone Sodium Succinate 40 MG/1 ML SDV IVPUSH SCH ×2 (03:47→16:32)
[2017-08-09] MEDS: HYDROmorphone 0.5 MG/0.5 ML Syringe IVPUSH PRN (04:04)
[2017-08-09] MEDS: Formoterol/Mometasone 100-5 MCG 8.8 GM Inhaler IH SCH ×2 (05:31→22:27)
[2017-08-09] MEDS: Dextrose 5%-0.9% NaCl 1,000 ML IV SCH ×2 (07:25→22:38)
[2017-08-09] MEDS: Haloperidol Lactate 5 MG/ML SDV IVPUSH PRN ×3 (08:04→22:38)
--- NOTE | 2017-08-09 08:33 | CR ---
Chest: Portable view of the chest was obtained. Comparison: Prior chest x-ray of 08/07/17. Heart size is normal. Tortuous thoracic aorta is seen. Elevated right hemidiaphragm is seen. Improved density within the left upper chest from prior exam. New areas of linear density within the left mid and lower lung likely due to atelectasis. Bony structures are grossly intact. Impression: 1. Improved density within the left upper chest. Mild areas of new atelectasis within left mid and lower lung. Diagnostic code #3 Agree with preliminary report issued by [facility] ([facility] preliminary report dictated on 08/08/17, 9:41 AM Central Time)
--- NOTE | 2017-08-09 09:15 | PCM.PN ---
- General Info Date of Service: 08/09/17 Admission Dx/Problem (Free Text): Follow Up Functional Status: Reports: Pain Controlled, Urinating. Denies: Ambulating, New Symptoms - Review of Systems General: Denies: Fever, Chills HEENT: Reports: No Symptoms Pulmonary: Denies: Shortness of Breath Cardiovascular: Denies: Chest Pain Gastrointestinal: Denies: Abdominal Pain, Difficulty Swallowing, Nausea Genitourinary: Reports: No Symptoms Musculoskeletal: Reports: No Symptoms Skin: Denies: Cyanosis, Pallor, Diaphoresis Neurological: Denies: Confusion, Weakness, Other Psychiatric: Denies: Depression, Anxiety, Agitation, Hallucinations Systems Review Comment:: He has been restless pretty much throughout the night. However he is more awake but not alert. He moves all extremities involuntarily. He moans and groans. His eyes are wide open. However he is not able to engage or interact. - Patient Data Vitals - Most Recent: Last Vital Signs Temp 36.3 C 08/09/17 03:50 Pulse 92 08/09/17 02:08 Resp 22 H 08/09/17 03:50 BP 148/91 H 08/09/17 03:50 Pulse Ox 92 L 08/09/17 05:47 Weight - Most Recent: 140.024 kg I&O - Last 24 Hours: Intake & Output 08/08/17 08/09/17 08/09/17 22:59 06:59 14:59 Intake Total 803 1946 Output Total 1325 1025 Balance -522 921 Lab Results Last 24 Hours: Laboratory Results - last 24 hr 08/08/17 08/08/17 08/09/17 Range/Units 11:41 18:30 00:37 WBC (4.23-9.07) K/mm3 RBC (4.63-6.08) M/mm3 Hgb (13.7-17.5) gm/L Hct (40.1-51.0) % MCV (79.0-92.2) fl MCH (25.7-32.2) pg MCHC (32.2-35.5) g/dl RDW Std Deviation (35.1-43.9) fL Plt Count (163-337) K/mm3 MPV (9.4-12.3) fl Neut % (Auto) (34.0-67.9) % Lymph % (Auto) (21.8-53.1) % Maury % (Auto) (5.3-12.2) % Eos % (Auto) (0.8-7.0) Baso % (Auto) (0.1-1.2) % Neut # (Auto) (1.78-5.38) K/mm3 Lymph # (Auto) (1.32-3.57) K/mm3 Maury # (Auto) (0.30-0.82) K/mm3 Eos # (Auto) (0.04-0.54) K/mm3 Baso # (Auto) (0.01-0.08) K/mm3 Sodium (136-145) mEq/L Potassium (3.5-5.1) mEq/L Chloride (98-107) mEq/L Carbon Dioxide (21-32) mEq/L Anion Gap (5-15) BUN (7-18) mg/dL Creatinine (0.7-1.3) mg/dL Est Cr Clr Drug Dosing mL/min Estimated GFR (MDRD) (>60) mL/min BUN/Creatinine Ratio (14-18) Glucose (80-115) mg/dL POC Glucose 166 H 127 H 102 (80-115) mg/dL Calcium (8.5-10.1) mg/dL Magnesium (1.8-2.4) mg/dl C-Reactive Protein (<1.0) mg/dL 08/09/17 08/09/17 08/09/17 Range/Units 06:14 06:45 06:45 WBC (4.23-9.07) K/mm3 RBC (4.63-6.08) M/mm3 Hgb (13.7-17.5) gm/L Hct (40.1-51.0) % MCV (79.0-92.2) fl MCH (25.7-32.2) pg MCHC (32.2-35.5) g/dl RDW Std Deviation (35.1-43.9) fL Plt Count (163-337) K/mm3 MPV (9.4-12.3) fl Neut % (Auto) (34.0-67.9) % Lymph % (Auto) (21.8-53.1) % Maury % (Auto) (5.3-12.2) % Eos % (Auto) (0.8-7.0) Baso % (Auto) (0.1-1.2) % Neut # (Auto) (1.78-5.38) K/mm3 Lymph # (Auto) (1.32-3.57) K/mm3 Maury # (Auto) (0.30-0.82) K/mm3 Eos # (Auto) (0.04-0.54) K/mm3 Baso # (Auto) (0.01-0.08) K/mm3 Sodium 144 (136-145) mEq/L Potassium 4.2 (3.5-5.1) mEq/L Chloride 106 (98-107) mEq/L Carbon Dioxide 31 (21-32) mEq/L Anion Gap 11.2 (5-15) BUN 21 H (7-18) mg/dL Creatinine 0.9 (0.7-1.3) mg/dL Est Cr Clr Drug Dosing 77.52 mL/min Estimated GFR (MDRD) > 60 (>60) mL/min BUN/Creatinine Ratio 23.3 H (14-18) Glucose 139 H (80-115) mg/dL POC Glucose 133 H (80-115) mg/dL Calcium 8.9 (8.5-10.1) mg/dL Magnesium 2.1 (1.8-2.4) mg/dl C-Reactive Protein 2.5 H* (<1.0) mg/dL 08/09/ Range/Units 06:45 WBC 6.70 (4.23-9.07) K/mm3 RBC 4.63 (4.63-6.08) M/mm3 Hgb 14.7 (13.7-17.5) gm/L Hct 44.5 (40.1-51.0) % MCV 96.1 H (79.0-92.2) fl MCH 31.7 (25.7-32.2) pg MCHC 33.0 (32.2-35.5) g/dl RDW Std Deviation 46.6 H (35.1-43.9) fL Plt Count 246 (163-337) K/mm3 MPV 9.5 (9.4-12.3) fl Neut % (Auto) 82.1 H (34.0-67.9) % Lymph % (Auto) 11.0 L (21.8-53.1) % Maury % (Auto) 6.1 (5.3-12.2) % Eos % (Auto) 0.1 L (0.8-7.0) Baso % (Auto) 0.1 (0.1-1.2) % Neut # (Auto) 5.49 H (1.78-5.38) K/mm3 Lymph # (Auto) 0.74 L (1.32-3.57) K/mm3 Maury # (Auto) 0.41 (0.30-0.82) K/mm3 Eos # (Auto) 0.01 L (0.04-0.54) K/mm3 Baso # (Auto) 0.01 (0.01-0.08) K/mm3 Sodium (136-145) mEq/L Potassium (3.5-5.1) mEq/L Chloride (98-107) mEq/L Carbon Dioxide (21-32) mEq/L Anion Gap (5-15) BUN (7-18) mg/dL Creatinine (0.7-1.3) mg/dL Est Cr Clr Drug Dosing mL/min Estimated GFR (MDRD) (>60) mL/min BUN/Creatinine Ratio (14-18) Glucose (80-115) mg/dL POC Glucose (80-115) mg/dL Calcium (8.5-10.1) mg/dL Magnesium (1.8-2.4) mg/dl C-Reactive Protein (<1.0) mg/dL Med Orders - Current: Current Medications Acetaminophen (Tylenol) 650 mg PO Q4H PRN PRN Reason: Pain (Mild 1-3)/fever Albuterol (Proventil Neb Soln) 2.5 mg NEB Q2H PRN PRN Reason: Shortness of Breath Albuterol/Ipratropium (Duoneb 3.0-0.5 Mg/3 Ml) 3 ml NEB Q4HRRT [facility] Last Admin: 08/09/17 05:41 Dose: 3 ml Allopurinol (Zyloprim) 350 mg PO DAILY [facility] Last Admin: 08/08/17 08:56 Dose: Not Given Clonidine HCl (Catapres) 0.1 mg PO Q12HR [facility] Last Admin: 08/08/17 20:22 Dose: Not Given Dextrose/Water (Dextrose 50% In Water) 50 ml IVPUSH ASDIRECTED PRN PRN Reason: Hypoglycemia Enoxaparin Sodium (Lovenox) 40 mg SUBCUT DAILY [facility] Last Admin: 08/08/17 08:01 Dose: 40 mg Famotidine (Pepcid) 20 mg IVPUSH BID [facility] Last Admin: 08/08/17 20:53 Dose: 20 mg Folic Acid (Folic Acid) 1 mg IV DAILY [facility] Last Admin: 08/08/17 08:02 Dose: 1 mg Haloperidol Lactate (Haldol) 4 mg IVPUSH Q6H PRN PRN Reason: restlessness Last Admin: 08/09/17 08:04 Dose: 3 mg Hydralazine HCl (Apresoline) 20 mg IVPUSH Q6H PRN PRN Reason: Hypertension Last Admin: 08/07/17 09:02 Dose: 20 mg Hydromorphone HCl (Dilaudid) 0.25 mg IVPUSH Q4H PRN PRN Reason: Pain Last Admin: 08/09/17 04:04 Dose: 0.25 mg Levofloxacin/Dextrose 750 mg/ (Premix) 150 mls @ 100 mls/hr IV Q24H [facility] Last Admin: 08/08/17 20:52 Dose: 100 mls/hr Propofol (Diprivan 100 Ml) 100 mls @ 17.16 mls/hr IV TITRATE [facility]; 20 MCG/KG/MIN PRN Reason: Protocol Last Titration: 08/05/17 08:34 Dose: 0 mcg/kg/min, 0 mls/hr Norepinephrine Bitartrate 4 mg (/ Dextrose/Water) 250 mls @ 7.5 mls/hr IV TITRATE [facility]; 2 MCG/MIN PRN Reason: Protocol Dextrose/Sodium Chloride (Dextrose 5%-Normal Saline) 1,000 mls @ 75 mls/hr IV ASDIRECTED [facility] Last Admin: 08/09/17 07:25 Dose: 75 mls/hr Piperacillin Sod/Tazobactam (Sod 4.5 gm/ Sodium Chloride) 100 mls @ 25 mls/hr IV Q6H [facility] Last Admin: 08/09/17 03:44 Dose: 25 mls/hr Insulin Aspart (Novolog) 0 unit SUBCUT Q6H [facility] PRN Reason: Protocol Last Admin: 08/09/17 06:54 Dose: Not Given Lorazepam (Ativan) 0 mg IVPUSH Q1H PRN; Protocol PRN Reason: withdrawl Last Admin: 08/07/17 04:56 Dose: 1 mg Lorazepam (Ativan) 4 mg IVPUSH Q3H [facility] Last Admin: 08/09/17 05:59 Dose: Not Given Lorazepam (Ativan) 4 mg IVPUSH Q5H PRN PRN Reason: Anxiety Last Admin: 08/07/17 21:38 Dose: 4 mg Methylprednisolone Sodium Succinate (Solu-Medrol) 80 mg IVPUSH Q12H [facility] Last Admin: 08/09/17 03:47 Dose: 80 mg Metoprolol Tartrate (Lopressor) 5 mg IVPUSH Q4H PRN PRN Reason: Tachycardia Last Admin: 08/04/17 22:56 Dose: 5 mg Miscellaneous Information (Remove Patch) 1 ea TRDERM ONETIME ONE Stop: 08/15/17 16:01 Mometasone Furoate/Formoterol Fumar (Dulera 100-5 Mcg) 0 puff IH BIDRT [facility] Last Admin: 08/09/17 05:31 Dose: Not Given Multivitamins (Thera) 1 each PO DAILY [facility] Last Admin: 08/08/17 08:56 Dose: Not Given Ondansetron HCl (Zofran Odt) 4 mg PO Q6H PRN PRN Reason: nausea, able to take PO Ondansetron HCl (Zofran) 4 mg IV Q6H PRN PRN Reason: Nausea/Vomiting Quetiapine Fumarate (Seroquel) 50 mg PO BEDTIME [facility] Last Admin: 08/08/17 20:23 Dose: Not Given Simvastatin (Zocor) 20 mg PO BEDTIME [facility] Last Admin: 08/08/17 20:23 Dose: Not Given Tamsulosin HCl (Flomax) 0.4 mg PO DAILY [facility] Last Admin: 08/08/17 08:55 Dose: Not Given Temazepam (Restoril) 15 mg PO BEDTIME PRN PRN Reason: Sleep Last Admin: 07/30/17 21:19 Dose: 15 mg Thiamine HCl (Vitamin B-1) 100 mg IV DAILY [facility] Last Admin: 08/08/17 08:00 Dose: 100 mg Discontinued Medications Albuterol (Proventil Neb Soln) 2.5 mg NEB Q4HRRT PRN PRN Reason: Shortness of Breath Last Admin: 08/06/17 22:28 Dose: 2.5 mg Albuterol/Ipratropium (Duoneb 3.0-0.5 Mg/3 Ml) 3 ml NEB Q4H PRN PRN Reason: Shortness Of Breath/wheezing Last Admin: 07/31/17 15:50 Dose: 3 ml Albuterol/Ipratropium (Duoneb 3.0-0.5 Mg/3 Ml) 3 ml NEB QIDRT [facility] Last Admin: 08/07/17 06:37 Dose: 3 ml Budesonide/Formoterol Fumarate (Symbicort 80-4.5 Mcg) 0 gm INH BIDRT [facility] Clonidine HCl (Catapres-Tts 3) 0.3 mg TRDERM Q7D ONE Stop: 08/08/17 15:47 Last Admin: 08/08/17 16:08 Dose: 0.3 mg Famotidine (Pepcid) 20 mg PO BID [facility] Last Admin: 07/31/17 09:12 Dose: Not Given Folic Acid (Folic Acid) 1 mg PO DAILY [facility] Last Admin: 07/31/17 09:12 Dose: Not Given Furosemide (Lasix) 40 mg IVPUSH NOW ONE Stop: 08/01/17 15:04 Last Admin: 08/01/17 15:34 Dose: 40 mg Furosemide (Lasix) 40 mg IVPUSH NOW ONE Stop: 08/02/17 05:01 Last Admin: 08/02/17 04:37 Dose: 40 mg Furosemide (Lasix) 20 mg IVPUSH NOW ONE Stop: 08/07/17 01:27 Last Admin: 08/07/17 01:38 Dose: 20 mg Haloperidol Lactate (Haldol) 5 mg IVPUSH Q4H PRN PRN Reason: Anxiety Last Admin: 07/31/17 11:00 Dose: 5 mg Haloperidol Lactate (Haldol) 7 mg IVPUSH Q2H PRN PRN Reason: Anxiety Last Admin: 07/31/17 17:47 Dose: 7 mg Haloperidol Lactate (Haldol) Confirm Administered Dose 5 mg .ROUTE .STK-MED ONE Stop: 07/31/17 18:27 Last Admin: 07/31/17 19:01 Dose: Not Given Haloperidol Lactate (Haldol) 5 mg IVPUSH ONETIME ONE Stop: 07/31/17 18:27 Last Admin: 07/31/17 18:27 Dose: 5 mg Hydralazine HCl (Apresoline) 10 mg PO Q6H PRN PRN Reason: Hypertension Hydromorphone HCl (Dilaudid) 1 mg IVPUSH Q4H PRN PRN Reason: Pain Last Admin: 08/06/17 15:11 Dose: 1 mg Hydromorphone HCl (Dilaudid) 0.5 mg IVPUSH Q4H PRN PRN Reason: Pain Last Admin: 08/06/17 22:19 Dose: 0.5 mg Hydromorphone HCl (Dilaudid) 1 mg IVPUSH Q4H PRN PRN Reason: Pain Last Admin: 08/08/17 10:00 Dose: 1 mg Hydromorphone HCl (Dilaudid) 0.25 mg IVPUSH ONETIME ONE Stop: 08/08/17 15:48 Last Admin: 08/08/17 16:07 Dose: 0.25 mg Sodium Chloride (Normal Saline) 1,000 mls @ 75 mls/hr IV ASDIRECTED [facility] Last Admin: 07/31/17 20:20 Dose: 150 mls/hr Propofol (Diprivan 100 Ml) Confirm Administered Dose 100 mls @ as directed .ROUTE .K-MED ONE Stop: 07/31/17 19:26 Last Admin: 07/31/17 20:55 Dose: Not Given Potassium Chloride/Sodium Chloride (Normal Saline With 20 Meq Kcl) 1,000 mls @ 75 mls/hr IV ASDIRECTED [facility] Last Infusion: 08/05/17 18:06 Dose: 100 mls/hr Dextrose/Sodium Chloride (Dextrose 5%-Normal Saline) 1,000 mls @ 50 mls/hr IV ASDIRECTED [facility] Last Admin: 08/05/17 01:10 Dose: 50 mls/hr Dextrose/Sodium Chloride (Dextrose 5%-Normal Saline) 1,000 mls @ 100 mls/hr IV ASDIRECTED [facility] Last Admin: 08/06/17 15:11 Dose: 100 mls/hr Piperacillin Sod/Tazobactam (Sod 4.5 gm/ Sodium Chloride) 100 mls @ 200 mls/hr IV ONETIME ONE Stop: 08/07/17 09:59 Last Admin: 08/07/17 09:55 Dose: 200 mls/hr Insulin Aspart (Novolog) 0 unit SUBCUT Q6H [facility] PRN Reason: Protocol Last Admin: 08/03/17 16:45 Dose: Not Given Iopamidol (Isovue-370 (76%)) 100 ml IVPUSH ONETIME ONE Stop: 07/30/17 16:56 Last Admin: 07/30/17 17:35 Dose: 80 ml Ketamine HCl (Ketalar) 100 mg IV ONETIME ONE Stop: 07/31/17 18:58 Last Admin: 07/31/17 18:57 Dose: 100 mg Ketamine HCl (Ketalar) 500 mg .ROUTE .STK-MED ONE Stop: 08/01/17 22:23 Lorazepam (Ativan) 0 mg IVPUSH Q4H PRN; Protocol PRN Reason: withdrawl Last Admin: 07/30/17 21:20 Dose: 1 mg Lorazepam (Ativan) 2 mg IVPUSH Q4H PRN PRN Reason: Seizures Lorazepam (Ativan) 1 mg PO Q4H PRN PRN Reason: anxiety Lorazepam (Ativan) 1 mg IVPUSH Q4H PRN PRN Reason: Anxiety Last Admin: 08/04/17 23:58 Dose: 1 mg Lorazepam (Ativan) 4 mg IVPUSH Q4H PRN PRN Reason: Anxiety Last Admin: 08/06/17 08:18 Dose: 4 mg Lorazepam (Ativan) Confirm Administered Dose 4 mg .ROUTE .STK-MED ONE Stop: 08/05/17 13:24 Last Admin: 08/05/17 13:32 Dose: Not Given Metoprolol Tartrate (Lopressor) 5 mg IVPUSH Q4H [facility] Last Admin: 08/06/17 07:50 Dose: Not Given Naloxone HCl (Narcan) 0.1 mg IVPUSH ONETIME ONE Stop: 07/30/17 16:54 Last Admin: 07/30/17 17:57 Dose: Not Given Naloxone HCl (Narcan) 0.2 mg IVPUSH ONETIME ONE Stop: 07/30/17 16:59 Last Admin: 07/30/17 17:01 Dose: 0.2 mg Naloxone HCl (Narcan) 0.2 mg IVPUSH ONETIME ONE Stop: 07/30/17 17:00 Last Admin: 07/30/17 17:10 Dose: Not Given Naloxone HCl (Narcan) 0.2 mg IVPUSH ONETIME ONE Stop: 07/30/17 17:14 Last Admin: 07/30/17 17:14 Dose: 0.2 mg Propofol (Diprivan 20 Ml) 100 mg IVPUSH ONETIME ONE Stop: 07/31/17 19:19 Last Admin: 07/31/17 19:18 Dose: 100 mg Propofol (Diprivan 20 Ml) 200 mg .ROUTE .STK-MED ONE Stop: 08/01/17 22:23 Sodium Chloride (Saline Flush) 10 ml FLUSH ONETIME ONE Stop: 07/30/17 16:56 Last Admin: 07/30/17 17:35 Dose: 10 ml Thiamine HCl (Vitamin B-1) 100 mg PO DAILY [facility] Last Admin: 07/31/17 09:13 Dose: Not Given - Exam General: Sedated HEENT: Pupils Equal. No: Mucous Membr. Moist/[place] Neck: Supple, Trachea Midline, No JVD, Other (short and thick) Lungs: Normal Respiratory Effort, Decreased Breath Sounds Cardiovascular: Regular Rate, Regular Rhythm GI/Abdominal Exam: Normal Bowel Sounds, Soft, Non-Tender, No Organomegaly, No Distention, No Abnormal Bruit, Other (Obese) (Male) Exam: Other (indwelling hardy catheter) Back Exam: Normal Inspection, Decreased Range of Motion Extremities: Normal Inspection, Normal Range of Motion, Non-Tender, Normal Capillary Refill Peripheral Pulses: 2+: Dorsalis Pedis (L), Dorsalis Pedis (R) Skin: Dry, Intact Neurological: No New Focal Deficit Psy/Mental Status: Other (Sedated) - Problem List Review Problem List Initiated/Reviewed/Updated: Yes - My Orders Last 24 Hours: My Active Orders 08/08/17 21:45 HYDROmorphone [Dilaudid] 0.25 mg IVPUSH Q4H PRN - Plan Plan:: I/P: Acute: AMS/Acute Encephalopathy, Slow progress - Likely 2/2 toxic/metabolic -Ativan now off, low dose dilaudid and PRN Haldol - Sedation and Pain vacation - He is now off BIPAP - May consider CT scan once stable or calm - Aspiration precaution HCAP/Aspiration Syndrome - S/p Mechanical Vent Placement - He is now breathing on his own - Continue supplemental O2, routine respiratory care, - Received intravenous Zosyn for 2 days and Levaquin for 7 days; will both d/ c antibiotics - Recent CXR: new density within left upper chest - Follow up CXR in AM Alcohol Abuse - Acute on Chronic - He reportedly drinks regularly - He would not explain how much he drinks or when. 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 was not willing to discuss it - SA/Psych consult------>postponed, unable to participate, will attempt weaning parameters, 08/03/17 Resolved: Withdrawal Symptoms/DT - CIWAA protocol - Mech vent - Sedation with propofol Elective Mech Vent - For 4 days - SUCCESSFUL EXTUBATION; BIPAP 07/02 Paroxysmal Atrial Fibrillation - Returned to sinus rhythm Chronic: Daughter does note he has sleep apnea and is on CPAP\\BiPAP, HLD, HTN, advanced lung disease. Morbid obesity Plan: He continues to improve clinically but slowly Continue: MVI, Folic, Acid, Thiamine/CIWA protocol Ativan for Abortive Seizure and Withdrawal Symptoms PRN meds for Withdrawal Symptoms Cut down steroids to 40 mg IVP BID Aspiration/Seizure Precautions High Fall Risk Goal is for him to be fully alert and wake; hopefully we do not need to start him on TPN SW/CM discharge planning SA/Psych consult Prognosis is guarded Code Status:Full code. He does not have a PCP in Area He is able to verbalize and respond to simple commands. He still appears restless but it appears he is slowly improving
[2017-08-09] MEDS: Tamsulosin 0.4 MG Cap.ER PO SCH (10:27)
[2017-08-09] MEDS: Allopurinol 100 MG Tab PO SCH (10:28)
[2017-08-09] MEDS: Multivitamins,Therapeutic Tab PO SCH (10:28)
[2017-08-09] MEDS ORDERED: methylPREDNISolone Sodium Succinate 40 MG/1 ML SDV IVPUSH SCH (10:32)
[2017-08-09] MEDS: Folic Acid 50 MG/10 ML MDV IV SCH (10:33)
[2017-08-09] MEDS: Famotidine 20 MG/2 ML SDV IVPUSH SCH ×2 (10:34→21:02)
[2017-08-09] MEDS: Enoxaparin 40 MG/0.4 ML Syringe SUBCUT SCH (10:34)
[2017-08-09] MEDS: Thiamine 200 MG/2 ML MDV IV SCH (10:35)
[2017-08-09] MEDS: cloNIDine 0.1 MG Tab PO SCH ×2 (10:35→20:29)
[2017-08-09] MEDS: hydrALAZINE 20 MG/ML SDV IVPUSH PRN (11:42)
[2017-08-09] MEDS: Metoprolol Tartrate 5 MG/5 ML SDV IVPUSH PRN (12:23)
[2017-08-09] MEDS ORDERED: Bumetanide 1 MG/4 ML MDV IVPUSH ONE ×2 (17:34→18:15)
[2017-08-09] MEDS: Simvastatin 20 MG Tab PO SCH (20:30)
[2017-08-09] MEDS: QUEtiapine 25 MG Tab PO SCH (20:30)
[2017-08-10] MEDS: LORazepam 2 MG/ML MDV IVPUSH SCH ×2 (00:16→03:12)
[2017-08-10] MEDS: Insulin Aspart 100 Units/ML 3 ML Pen SUBCUT SCH ×4 (00:16→20:58)
[2017-08-10] MEDS: Albuterol/Ipratropium 3.0-0.5 MG/3 ML Neb Soln NEB SCH ×6 (02:34→21:14)
[2017-08-10] MEDS ORDERED: Modafinil 200 MG Tab PO ONE (08:00)
--- NOTE | 2017-08-10 09:10 | CR ---
Chest: Portable view of the chest was obtained. Comparison: Prior chest x-ray of 08/08/17. Elevated right hemidiaphragm is seen which is stable. Lungs are clear with no acute infiltrates. Previous atelectasis within the left chest has resolved. Heart size is normal. Tortuous thoracic aorta is seen. Impression: 1. Incidental findings. Nothing acute is seen. Diagnostic code #2
[2017-08-10] MEDS ORDERED: Modafinil 200 MG Tab ONE (10:14)
[2017-08-10] MEDS: Formoterol/Mometasone 100-5 MCG 8.8 GM Inhaler IH SCH ×2 (12:12→21:14)
[2017-08-10] MEDS: methylPREDNISolone Sodium Succinate 40 MG/1 ML SDV IVPUSH SCH ×2 (12:12→15:40)
[2017-08-10] MEDS: Folic Acid 50 MG/10 ML MDV IV SCH (12:13)
[2017-08-10] MEDS: Thiamine 200 MG/2 ML MDV IV SCH (12:13)
[2017-08-10] MEDS: Enoxaparin 40 MG/0.4 ML Syringe SUBCUT SCH (12:13)
[2017-08-10] MEDS: Multivitamins,Therapeutic Tab PO SCH (12:13)
[2017-08-10] MEDS: cloNIDine 0.1 MG Tab PO SCH ×2 (12:14→20:59)
[2017-08-10] MEDS: Famotidine 20 MG/2 ML SDV IVPUSH SCH ×2 (12:14→21:37)
[2017-08-10] MEDS: Tamsulosin 0.4 MG Cap.ER PO SCH (12:16)
[2017-08-10] MEDS: Allopurinol 100 MG Tab PO SCH (12:18)
[2017-08-10] MEDS: Haloperidol Lactate 5 MG/ML SDV IVPUSH PRN (13:37)
--- NOTE | 2017-08-10 16:37 | PCM.PN ---
- General Info Date of Service: 08/10/17 Admission Dx/Problem (Free Text): Follow Up Subjective Update: Follow Up Functional Status: Reports: Pain Controlled, Tolerating Diet, Urinating. Denies : Ambulating, New Symptoms - Review of Systems General: Denies: Fever, Chills HEENT: Reports: No Symptoms Pulmonary: Denies: Shortness of Breath Cardiovascular: Denies: Chest Pain, Dyspnea on Exertion, Edema Gastrointestinal: Denies: Abdominal Pain, Nausea, Vomiting Genitourinary: Reports: No Symptoms Musculoskeletal: Reports: No Symptoms Skin: Denies: Cyanosis, Mottled, Pallor, Diaphoresis, Pruritis Neurological: Denies: Difficulty Walking, Weakness, Gait Disturbance Psychiatric: Reports: Other (Lethragic) Systems Review Comment:: No significant overnight or acute issues. He got only dose of haldol overnight. He is more awake but not fully alert. He is having breakfast this am. He is able to engage briefly with me. When asked if he is in pain he said "no" but asked if her can have a "scotch" to drink. His labs are stable. He is still on supplemental 02. - Patient Data Vitals - Most Recent: Last Vital Signs Temp 37.1 C 08/10/17 12:00 Pulse 98 08/10/17 00:00 Resp 19 08/10/17 12:00 BP 167/118 H 08/10/17 12:14 Pulse Ox 97 08/10/17 12:00 Weight - Most Recent: 134.853 kg I&O - Last 24 Hours: Intake & Output 08/09/17 08/10/17 08/10/17 22:59 06:59 14:59 Intake Total 925 212 Output Total 1260 875 275 Balance -335 -875 -63 Lab Results Last 24 Hours: Laboratory Results - last 24 hr 08/09/17 08/10/17 Range/Units 17:11 00:11 POC Glucose 98 145 H (80-115) mg/dL Med Orders - Current: Current Medications Acetaminophen (Tylenol) 650 mg PO Q4H PRN PRN Reason: Pain (Mild 1-3)/fever Albuterol (Proventil Neb Soln) 2.5 mg NEB Q2H PRN PRN Reason: Shortness of Breath Albuterol/Ipratropium (Duoneb 3.0-0.5 Mg/3 Ml) 3 ml NEB Q4HRRT [facility] Last Admin: 08/10/17 12:16 Dose: Not Given Allopurinol (Zyloprim) 350 mg PO DAILY [facility] Last Admin: 08/10/17 12:18 Dose: Not Given Clonidine HCl (Catapres) 0.1 mg PO Q12HR [facility] Last Admin: 08/10/17 12:14 Dose: Not Given Dextrose/Water (Dextrose 50% In Water) 50 ml IVPUSH ASDIRECTED PRN PRN Reason: Hypoglycemia Enoxaparin Sodium (Lovenox) 40 mg SUBCUT DAILY [facility] Last Admin: 08/10/17 12:13 Dose: Not Given Famotidine (Pepcid) 20 mg IVPUSH BID [facility] Last Admin: 08/10/17 12:14 Dose: Not Given Folic Acid (Folic Acid) 1 mg IV DAILY [facility] Last Admin: 08/10/17 12:13 Dose: Not Given Haloperidol Lactate (Haldol) 4 mg IVPUSH Q6H PRN PRN Reason: restlessness Last Admin: 08/09/17 22:38 Dose: 4 mg Hydralazine HCl (Apresoline) 20 mg IVPUSH Q6H PRN PRN Reason: Hypertension Last Admin: 08/09/17 11:42 Dose: 20 mg Hydromorphone HCl (Dilaudid) 0.25 mg IVPUSH Q4H PRN PRN Reason: Pain Last Admin: 08/09/17 04:04 Dose: 0.25 mg Propofol (Diprivan 100 Ml) 100 mls @ 17.16 mls/hr IV TITRATE [facility]; 20 MCG/KG/MIN PRN Reason: Protocol Last Titration: 08/05/17 08:34 Dose: 0 mcg/kg/min, 0 mls/hr Norepinephrine Bitartrate 4 mg (/ Dextrose/Water) 250 mls @ 7.5 mls/hr IV TITRATE [facility]; 2 MCG/MIN PRN Reason: Protocol Dextrose/Sodium Chloride (Dextrose 5%-Normal Saline) 1,000 mls @ 75 mls/hr IV ASDIRECTED [facility] Last Admin: 08/09/17 22:38 Dose: 75 mls/hr Insulin Aspart (Novolog) 0 unit SUBCUT Q6H [facility] PRN Reason: Protocol Last Admin: 08/10/17 12:15 Dose: Not Given Lorazepam (Ativan) 0 mg IVPUSH Q1H PRN; Protocol PRN Reason: withdrawl Last Admin: 08/07/17 04:56 Dose: 1 mg Lorazepam (Ativan) 4 mg IVPUSH Q5H PRN PRN Reason: Anxiety Last Admin: 08/07/17 21:38 Dose: 4 mg Methylprednisolone Sodium Succinate (Solu-Medrol) 40 mg IVPUSH Q12H [facility] Last Admin: 08/10/17 12:12 Dose: Not Given Metoprolol Tartrate (Lopressor) 5 mg IVPUSH Q4H PRN PRN Reason: Tachycardia Last Admin: 08/09/17 12:23 Dose: 5 mg Miscellaneous Information (Remove Patch) 1 ea TRDERM ONETIME ONE Stop: 08/15/17 16:01 Mometasone Furoate/Formoterol Fumar (Dulera 100-5 Mcg) 0 puff IH BIDRT [facility] Last Admin: 08/10/17 12:12 Dose: Not Given Multivitamins (Thera) 1 each PO DAILY [facility] Last Admin: 08/10/17 12:13 Dose: Not Given Ondansetron HCl (Zofran Odt) 4 mg PO Q6H PRN PRN Reason: nausea, able to take PO Ondansetron HCl (Zofran) 4 mg IV Q6H PRN PRN Reason: Nausea/Vomiting Quetiapine Fumarate (Seroquel) 50 mg PO BEDTIME [facility] Last Admin: 08/09/17 20:30 Dose: Not Given Simvastatin (Zocor) 20 mg PO BEDTIME [facility] Last Admin: 08/09/17 20:30 Dose: Not Given Tamsulosin HCl (Flomax) 0.4 mg PO DAILY [facility] Last Admin: 08/10/17 12:16 Dose: Not Given Temazepam (Restoril) 15 mg PO BEDTIME PRN PRN Reason: Sleep Last Admin: 07/30/17 21:19 Dose: 15 mg Thiamine HCl (Vitamin B-1) 100 mg IV DAILY [facility] Last Admin: 08/10/17 12:13 Dose: Not Given Discontinued Medications Albuterol (Proventil Neb Soln) 2.5 mg NEB Q4HRRT PRN PRN Reason: Shortness of Breath Last Admin: 08/06/17 22:28 Dose: 2.5 mg Albuterol/Ipratropium (Duoneb 3.0-0.5 Mg/3 Ml) 3 ml NEB Q4H PRN PRN Reason: Shortness Of Breath/wheezing Last Admin: 07/31/17 15:50 Dose: 3 ml Albuterol/Ipratropium (Duoneb 3.0-0.5 Mg/3 Ml) 3 ml NEB QIDRT [facility] Last Admin: 08/07/17 06:37 Dose: 3 ml Budesonide/Formoterol Fumarate (Symbicort 80-4.5 Mcg) 0 gm INH BIDRT [facility] Bumetanide (Bumex) 2 mg IVPUSH ONETIME ONE Stop: 08/09/17 17:35 Last Admin: 08/09/17 18:26 Dose: 2 mg Bumetanide (Bumex) 2 mg IVPUSH ONETIME ONE Stop: 08/09/17 18:16 Last Admin: 08/09/17 18:38 Dose: Not Given Clonidine HCl (Catapres-Tts 3) 0.3 mg TRDERM Q7D ONE Stop: 08/08/17 15:47 Last Admin: 08/08/17 16:08 Dose: 0.3 mg Famotidine (Pepcid) 20 mg PO BID [facility] Last Admin: 07/31/17 09:12 Dose: Not Given Folic Acid (Folic Acid) 1 mg PO DAILY [facility] Last Admin: 07/31/17 09:12 Dose: Not Given Furosemide (Lasix) 40 mg IVPUSH NOW ONE Stop: 08/01/17 15:04 Last Admin: 08/01/17 15:34 Dose: 40 mg Furosemide (Lasix) 40 mg IVPUSH NOW ONE Stop: 08/02/17 05:01 Last Admin: 08/02/17 04:37 Dose: 40 mg Furosemide (Lasix) 20 mg IVPUSH NOW ONE Stop: 08/07/17 01:27 Last Admin: 08/07/17 01:38 Dose: 20 mg Haloperidol Lactate (Haldol) 5 mg IVPUSH Q4H PRN PRN Reason: Anxiety Last Admin: 07/31/17 11:00 Dose: 5 mg Haloperidol Lactate (Haldol) 7 mg IVPUSH Q2H PRN PRN Reason: Anxiety Last Admin: 07/31/17 17:47 Dose: 7 mg Haloperidol Lactate (Haldol) Confirm Administered Dose 5 mg .ROUTE .STK-MED ONE Stop: 07/31/17 18:27 Last Admin: 07/31/17 19:01 Dose: Not Given Haloperidol Lactate (Haldol) 5 mg IVPUSH ONETIME ONE Stop: 07/31/17 18:27 Last Admin: 07/31/17 18:27 Dose: 5 mg Hydralazine HCl (Apresoline) 10 mg PO Q6H PRN PRN Reason: Hypertension Hydromorphone HCl (Dilaudid) 1 mg IVPUSH Q4H PRN PRN Reason: Pain Last Admin: 08/06/17 15:11 Dose: 1 mg Hydromorphone HCl (Dilaudid) 0.5 mg IVPUSH Q4H PRN PRN Reason: Pain Last Admin: 08/06/17 22:19 Dose: 0.5 mg Hydromorphone HCl (Dilaudid) 1 mg IVPUSH Q4H PRN PRN Reason: Pain Last Admin: 08/08/17 10:00 Dose: 1 mg Hydromorphone HCl (Dilaudid) 0.25 mg IVPUSH ONETIME ONE Stop: 08/08/17 15:48 Last Admin: 08/08/17 16:07 Dose: 0.25 mg Sodium Chloride (Normal Saline) 1,000 mls @ 75 mls/hr IV ASDIRECTED [facility] Last Admin: 07/31/17 20:20 Dose: 150 mls/hr Levofloxacin/Dextrose 750 mg/ (Premix) 150 mls @ 100 mls/hr IV Q24H [facility] Last Admin: 08/08/17 20:52 Dose: 100 mls/hr Propofol (Diprivan 100 Ml) Confirm Administered Dose 100 mls @ as directed .ROUTE .STK-MED ONE Stop: 07/31/17 19:26 Last Admin: 07/31/17 20:55 Dose: Not Given Potassium Chloride/Sodium Chloride (Normal Saline With 20 Meq Kcl) 1,000 mls @ 75 mls/hr IV ASDIRECTED [facility] Last Infusion: 08/05/17 18:06 Dose: 100 mls/hr Dextrose/Sodium Chloride (Dextrose 5%-Normal Saline) 1,000 mls @ 50 mls/hr IV ASDIRECTED [facility] Last Admin: 08/05/17 01:10 Dose: 50 mls/hr Dextrose/Sodium Chloride (Dextrose 5%-Normal Saline) 1,000 mls @ 100 mls/hr IV ASDIRECTED [facility] Last Admin: 08/06/17 15:11 Dose: 100 mls/hr Piperacillin Sod/Tazobactam (Sod 4.5 gm/ Sodium Chloride) 100 mls @ 25 mls/hr IV Q6H [facility] Last Admin: 08/09/17 15:39 Dose: 25 mls/hr Piperacillin Sod/Tazobactam (Sod 4.5 gm/ Sodium Chloride) 100 mls @ 200 mls/hr IV ONETIME ONE Stop: 08/07/17 09:59 Last Admin: 08/07/17 09:55 Dose: 200 mls/hr Insulin Aspart (Novolog) 0 unit SUBCUT Q6H [facility] PRN Reason: Protocol Last Admin: 08/03/17 16:45 Dose: Not Given Iopamidol (Isovue-370 (76%)) 100 ml IVPUSH ONETIME ONE Stop: 07/30/17 16:56 Last Admin: 07/30/17 17:35 Dose: 80 ml Ketamine HCl (Ketalar) 100 mg IV ONETIME ONE Stop: 07/31/17 18:58 Last Admin: 07/31/17 18:57 Dose: 100 mg Ketamine HCl (Ketalar) 500 mg .ROUTE .STK-MED ONE Stop: 08/01/17 22:23 Lorazepam (Ativan) 0 mg IVPUSH Q4H PRN; Protocol PRN Reason: withdrawl Last Admin: 07/30/17 21:20 Dose: 1 mg Lorazepam (Ativan) 2 mg IVPUSH Q4H PRN PRN Reason: Seizures Lorazepam (Ativan) 1 mg PO Q4H PRN PRN Reason: anxiety Lorazepam (Ativan) 1 mg IVPUSH Q4H PRN PRN Reason: Anxiety Last Admin: 08/04/17 23:58 Dose: 1 mg Lorazepam (Ativan) 4 mg IVPUSH Q4H PRN PRN Reason: Anxiety Last Admin: 08/06/17 08:18 Dose: 4 mg Lorazepam (Ativan) Confirm Administered Dose 4 mg .ROUTE .STK-MED ONE Stop: 08/05/17 13:24 Last Admin: 08/05/17 13:32 Dose: Not Given Lorazepam (Ativan) 4 mg IVPUSH Q3H [facility] Last Admin: 08/10/17 03:12 Dose: Not Given Methylprednisolone Sodium Succinate (Solu-Medrol) 80 mg IVPUSH Q12H [facility] Last Admin: 08/09/17 03:47 Dose: 80 mg Methylprednisolone Sodium Succinate (Solu-Medrol) 40 mg IVPUSH Q12H [facility] Metoprolol Tartrate (Lopressor) 5 mg IVPUSH Q4H [facility] Last Admin: 08/06/17 07:50 Dose: Not Given Naloxone HCl (Narcan) 0.1 mg IVPUSH ONETIME ONE Stop: 07/30/17 16:54 Last Admin: 07/30/17 17:57 Dose: Not Given Naloxone HCl (Narcan) 0.2 mg IVPUSH ONETIME ONE Stop: 07/30/17 16:59 Last Admin: 07/30/17 17:01 Dose: 0.2 mg Naloxone HCl (Narcan) 0.2 mg IVPUSH ONETIME ONE Stop: 07/30/17 17:00 Last Admin: 07/30/17 17:10 Dose: Not Given Naloxone HCl (Narcan) 0.2 mg IVPUSH ONETIME ONE Stop: 07/30/17 17:14 Last Admin: 07/30/17 17:14 Dose: 0.2 mg Propofol (Diprivan 20 Ml) 100 mg IVPUSH ONETIME ONE Stop: 07/31/17 19:19 Last Admin: 07/31/17 19:18 Dose: 100 mg Propofol (Diprivan 20 Ml) 200 mg .ROUTE .STK-MED ONE Stop: 08/01/17 22:23 Sodium Chloride (Saline Flush) 10 ml FLUSH ONETIME ONE Stop: 07/30/17 16:56 Last Admin: 07/30/17 17:35 Dose: 10 ml Thiamine HCl (Vitamin B-1) 100 mg PO DAILY [facility] Last Admin: 07/31/17 09:13 Dose: Not Given - Exam Quality Assessment: Supplemental Oxygen General: Cooperative (somewhat), Lethargic HEENT: Pupils Equal, Pupils Reactive, EOMI, Mucous Membr. Moist/[place] Neck: Supple, Trachea Midline, No JVD Lungs: Normal Respiratory Effort, Decreased Breath Sounds Cardiovascular: Regular Rate, Regular Rhythm GI/Abdominal Exam: Normal Bowel Sounds, Soft, Non-Tender, No Organomegaly, No Distention, No Abnormal Bruit, No Mass, Other (Obese) (Male) Exam: Other (indwelling hardy catheter) Extremities: Normal Inspection, Normal Range of Motion, Non-Tender, No Pedal Edema, Normal Capillary Refill Peripheral Pulses: 2+: Posterior Tibial (R), Dorsalis Pedis (R) Skin: Warm, Dry, Intact Neurological: Other (not able to assess he is lethargic) Psy/Mental Status: Other (lethargic and not able to fully follow simple commands ) - Problem List Review Problem List Initiated/Reviewed/Updated: Yes - My Orders Last 24 Hours: My Active Orders 08/10/17 05:11 BMP [BASIC METABOLIC PANEL,BMP] [CHEM] Routine MG [MAGNESIUM] [CHEM] Routine 08/10/17 07:00 Chest 1V Frontal [CR] Routine - Plan Plan:: I/P: Acute: AMS/Acute Encephalopathy, Improved this AM - Likely 2/2 toxic/metabolic - He is able to briefly engaged with me - He is eating breakfast - Ativan now off, low dose dilaudid and PRN Haldol - Sedation and Pain vacation - Aspiration precaution S/p HCAP/Aspiration Syndrome - S/p Mechanical Vent Placement - He is now breathing on his own - Continue supplemental O2, routine respiratory care, - Received intravenous Zosyn for 2 days and Levaquin for 7 days; both d/c'd - Recent CXR: new density within left upper chest - Follow up CXR this AM: shows no infiltrates Alcohol Abuse - Acute on Chronic - He reportedly drinks regularly - He would not explain how much he drinks or when. 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 was not willing to discuss it - SA/Psych consult------>postponed, unable to participate, will attempt weaning parameters, 08/03/17 Resolved: Withdrawal Symptoms/DT - CIWAA protocol - Mech vent - Sedation with propofol Elective Mech Vent - For 4 days - SUCCESSFUL EXTUBATION; BIPAP 07/02 Paroxysmal Atrial Fibrillation - Returned to sinus rhythm Chronic: Daughter does note he has sleep apnea and is on CPAP\\BiPAP, HLD, HTN, advanced lung disease. Morbid obesity Plan: He continues to improve clinically Continue: MVI, Folic, Acid, Thiamine/CIWA protocol Ativan for Abortive Seizure and Withdrawal Symptoms PRN meds for Withdrawal Symptoms Cut down steroids to 40 mg IVP DAily Aspiration/Seizure Precautions High Fall Risk SW/CM discharge planning SA/Psych consult Code Status:Full code. He does not have a PCP in [place] Prognosis is promising-good. Our goal once stable is be able to [facility]
[2017-08-10] MEDS: QUEtiapine 25 MG Tab PO SCH (21:00)
[2017-08-10] MEDS: Simvastatin 20 MG Tab PO SCH (21:00)
[2017-08-11] MEDS: Insulin Aspart 100 Units/ML 3 ML Pen SUBCUT SCH ×3 (00:25→12:51)
[2017-08-11] MEDS: Albuterol/Ipratropium 3.0-0.5 MG/3 ML Neb Soln NEB SCH ×3 (02:12→09:43)
--- NOTE | 2017-08-11 05:44 | PCM.PN ---
- General Info Date of Service: 08/11/17 Admission Dx/Problem (Free Text): Follow Up Subjective Update: Follow Up Functional Status: Reports: Pain Controlled, Tolerating Diet, Urinating, New Symptoms (hungry). Denies: Ambulating - Review of Systems General: Denies: Fever, Chills HEENT: Reports: No Symptoms Pulmonary: Denies: Shortness of Breath Cardiovascular: Denies: Chest Pain Gastrointestinal: Denies: Abdominal Pain, Nausea, Vomiting Genitourinary: Reports: No Symptoms Musculoskeletal: Reports: No Symptoms Skin: Reports: No Symptoms Neurological: Denies: Confusion, Difficulty Walking, Weakness, Gait Disturbance Psychiatric: Denies: Confusion, Anxiety, Agitation, Hallucinations Systems Review Comment:: No significant overnight or acute issues. He is alert and awake able to converse reasonably with me this morning. He reports no complaints. - Patient Data Vitals - Most Recent: Last Vital Signs Temp 36.5 C 08/11/17 03:41 Pulse 84 08/11/17 03:41 Resp 22 H 08/11/17 03:41 BP 140/74 08/11/17 03:41 Pulse Ox 91 L 08/11/17 03:41 Weight - Most Recent: 134.853 kg I&O - Last 24 Hours: Intake & Output 08/10/17 08/10/17 08/11/17 14:59 22:59 06:59 Intake Total 612 150 Output Total 400 650 550 Balance 212 -650 -400 Lab Results Last 24 Hours: Laboratory Results - last 24 hr 08/10/17 08/10/17 08/10/17 Range/Units 06:42 06:45 06:45 WBC 7.64 (4.23-9.07) K/mm3 RBC 5.23 (4.63-6.08) M/mm3 Hgb 16.5 (13.7-17.5) gm/L Hct 49.0 (40.1-51.0) % MCV 93.7 H (79.0-92.2) fl MCH 31.5 (25.7-32.2) pg MCHC 33.7 (32.2-35.5) g/dl RDW Std Deviation 45.3 H (35.1-43.9) fL Plt Count 307 (163-337) K/mm3 MPV 9.5 (9.4-12.3) fl Neut % (Auto) 81.7 H (34.0-67.9) % Lymph % (Auto) 10.6 L (21.8-53.1) % [place] % (Auto) 6.8 (5.3-12.2) % Eos % (Auto) 0.1 L (0.8-7.0) Baso % (Auto) 0.1 (0.1-1.2) % Neut # (Auto) 6.24 H (1.78-5.38) K/mm3 Lymph # (Auto) 0.81 L (1.32-3.57) K/mm3 [place] # (Auto) 0.52 (0.30-0.82) K/mm3 Eos # (Auto) 0.01 L (0.04-0.54) K/mm3 Baso # (Auto) 0.01 (0.01-0.08) K/mm3 Sodium 142 (136-145) mEq/L Potassium 3.6 (3.5-5.1) mEq/L Chloride 103 (98-107) mEq/L Carbon Dioxide 30 (21-32) mEq/L Anion Gap 12.6 (5-15) BUN 22 H (7-18) mg/dL Creatinine 1.0 (0.7-1.3) mg/dL Est Cr Clr Drug Dosing 69.77 mL/min Estimated GFR (MDRD) > 60 (>60) mL/min BUN/Creatinine Ratio 22.0 H (14-18) Glucose 152 H (80-115) mg/dL POC Glucose 168 H (80-115) mg/dL Calcium 9.1 (8.5-10.1) mg/dL Magnesium 2.2 (1.8-2.4) mg/dl 08/10/17 08/10/17 08/11/17 Range/Units 12:22 18:14 00:14 WBC (4.23-9.07) K/mm3 RBC (4.63-6.08) M/mm3 Hgb (13.7-17.5) gm/L Hct (40.1-51.0) % MCV (79.0-92.2) fl MCH (25.7-32.2) pg MCHC (32.2-35.5) g/dl RDW Std Deviation (35.1-43.9) fL Plt Count (163-337) K/mm3 MPV (9.4-12.3) fl Neut % (Auto) (34.0-67.9) % Lymph % (Auto) (21.8-53.1) % [place] % (Auto) (5.3-12.2) % Eos % (Auto) (0.8-7.0) Baso % (Auto) (0.1-1.2) % Neut # (Auto) (1.78-5.38) K/mm3 Lymph # (Auto) (1.32-3.57) K/mm3 [place] # (Auto) (0.30-0.82) K/mm3 Eos # (Auto) (0.04-0.54) K/mm3 Baso # (Auto) (0.01-0.08) K/mm3 Sodium (136-145) mEq/L Potassium (3.5-5.1) mEq/L Chloride (98-107) mEq/L Carbon Dioxide (21-32) mEq/L Anion Gap (5-15) BUN (7-18) mg/dL Creatinine (0.7-1.3) mg/dL Est Cr Clr Drug Dosing mL/min Estimated GFR (MDRD) (>60) mL/min BUN/Creatinine Ratio (14-18) Glucose (80-115) mg/dL POC Glucose 107 130 H 111 (80-115) mg/dL Calcium (8.5-10.1) mg/dL Magnesium (1.8-2.4) mg/dl Med Orders - Current: Current Medications Acetaminophen (Tylenol) 650 mg PO Q4H PRN PRN Reason: Pain (Mild 1-3)/fever Albuterol (Proventil Neb Soln) 2.5 mg NEB Q2H PRN PRN Reason: Shortness of Breath Albuterol/Ipratropium (Duoneb 3.0-0.5 Mg/3 Ml) 3 ml NEB Q4HRRT [facility] Last Admin: 08/11/17 02:12 Dose: 3 ml Allopurinol (Zyloprim) 350 mg PO DAILY [facility] Last Admin: 08/10/17 12:18 Dose: Not Given Clonidine HCl (Catapres) 0.1 mg PO Q12HR [facility] Last Admin: 08/10/17 20:59 Dose: Not Given Dextrose/Water (Dextrose 50% In Water) 50 ml IVPUSH ASDIRECTED PRN PRN Reason: Hypoglycemia Enoxaparin Sodium (Lovenox) 40 mg SUBCUT DAILY [facility] Last Admin: 08/10/17 12:13 Dose: Not Given Famotidine (Pepcid) 20 mg IVPUSH BID [facility] Last Admin: 08/10/17 21:37 Dose: 20 mg Folic Acid (Folic Acid) 1 mg IV DAILY [facility] Last Admin: 08/10/17 12:13 Dose: Not Given Haloperidol Lactate (Haldol) 4 mg IVPUSH Q6H PRN PRN Reason: restlessness Last Admin: 08/10/17 13:37 Dose: 4 mg Hydralazine HCl (Apresoline) 20 mg IVPUSH Q6H PRN PRN Reason: Hypertension Last Admin: 08/09/17 11:42 Dose: 20 mg Hydromorphone HCl (Dilaudid) 0.25 mg IVPUSH Q4H PRN PRN Reason: Pain Last Admin: 08/09/17 04:04 Dose: 0.25 mg Propofol (Diprivan 100 Ml) 100 mls @ 17.16 mls/hr IV TITRATE [facility]; 20 MCG/KG/MIN PRN Reason: Protocol Last Titration: 08/05/17 08:34 Dose: 0 mcg/kg/min, 0 mls/hr Norepinephrine Bitartrate 4 mg (/ Dextrose/Water) 250 mls @ 7.5 mls/hr IV TITRATE [facility]; 2 MCG/MIN PRN Reason: Protocol Insulin Aspart (Novolog) 0 unit SUBCUT Q6H [facility] PRN Reason: Protocol Last Admin: 08/11/17 00:25 Dose: Not Given Methylprednisolone Sodium Succinate (Solu-Medrol) 40 mg IVPUSH DAILY [facility] Metoprolol Tartrate (Lopressor) 5 mg IVPUSH Q4H PRN PRN Reason: Tachycardia Last Admin: 08/09/17 12:23 Dose: 5 mg Miscellaneous Information (Remove Patch) 1 ea TRDERM ONETIME ONE Stop: 08/15/17 16:01 Mometasone Furoate/Formoterol Fumar (Dulera 100-5 Mcg) 0 puff IH BIDRT [facility] Last Admin: 08/10/17 21:14 Dose: Not Given Multivitamins (Thera) 1 each PO DAILY [facility] Last Admin: 08/10/17 12:13 Dose: Not Given Ondansetron HCl (Zofran Odt) 4 mg PO Q6H PRN PRN Reason: nausea, able to take PO Ondansetron HCl (Zofran) 4 mg IV Q6H PRN PRN Reason: Nausea/Vomiting Quetiapine Fumarate (Seroquel) 50 mg PO BEDTIME [facility] Last Admin: 08/10/17 21:00 Dose: Not Given Simvastatin (Zocor) 20 mg PO BEDTIME [facility] Last Admin: 08/10/17 21:00 Dose: Not Given Tamsulosin HCl (Flomax) 0.4 mg PO DAILY [facility] Last Admin: 08/10/17 12:16 Dose: Not Given Temazepam (Restoril) 15 mg PO BEDTIME PRN PRN Reason: Sleep Last Admin: 07/30/17 21:19 Dose: 15 mg Thiamine HCl (Vitamin B-1) 100 mg IV DAILY [facility] Last Admin: 08/10/17 12:13 Dose: Not Given Discontinued Medications Albuterol (Proventil Neb Soln) 2.5 mg NEB Q4HRRT PRN PRN Reason: Shortness of Breath Last Admin: 08/06/17 22:28 Dose: 2.5 mg Albuterol/Ipratropium (Duoneb 3.0-0.5 Mg/3 Ml) 3 ml NEB Q4H PRN PRN Reason: Shortness Of Breath/wheezing Last Admin: 07/31/17 15:50 Dose: 3 ml Albuterol/Ipratropium (Duoneb 3.0-0.5 Mg/3 Ml) 3 ml NEB QIDRT [facility] Last Admin: 08/07/17 06:37 Dose: 3 ml Budesonide/Formoterol Fumarate (Symbicort 80-4.5 Mcg) 0 gm INH BIDRT [facility] Bumetanide (Bumex) 2 mg IVPUSH ONETIME ONE Stop: 08/09/17 17:35 Last Admin: 08/09/17 18:26 Dose: 2 mg Bumetanide (Bumex) 2 mg IVPUSH ONETIME ONE Stop: 08/09/17 18:16 Last Admin: 08/09/17 18:38 Dose: Not Given Clonidine HCl (Catapres-Tts 3) 0.3 mg TRDERM Q7D ONE Stop: 08/08/17 15:47 Last Admin: 08/08/17 16:08 Dose: 0.3 mg Famotidine (Pepcid) 20 mg PO BID [facility] Last Admin: 07/31/17 09:12 Dose: Not Given Folic Acid (Folic Acid) 1 mg PO DAILY [facility] Last Admin: 07/31/17 09:12 Dose: Not Given Furosemide (Lasix) 40 mg IVPUSH NOW ONE Stop: 08/01/17 15:04 Last Admin: 08/01/17 15:34 Dose: 40 mg Furosemide (Lasix) 40 mg IVPUSH NOW ONE Stop: 08/02/17 05:01 Last Admin: 08/02/17 04:37 Dose: 40 mg Furosemide (Lasix) 20 mg IVPUSH NOW ONE Stop: 08/07/17 01:27 Last Admin: 08/07/17 01:38 Dose: 20 mg Haloperidol Lactate (Haldol) 5 mg IVPUSH Q4H PRN PRN Reason: Anxiety Last Admin: 07/31/17 11:00 Dose: 5 mg Haloperidol Lactate (Haldol) 7 mg IVPUSH Q2H PRN PRN Reason: Anxiety Last Admin: 07/31/17 17:47 Dose: 7 mg Haloperidol Lactate (Haldol) Confirm Administered Dose 5 mg .ROUTE .STK-MED ONE Stop: 07/31/17 18:27 Last Admin: 07/31/17 19:01 Dose: Not Given Haloperidol Lactate (Haldol) 5 mg IVPUSH ONETIME ONE Stop: 07/31/17 18:27 Last Admin: 07/31/17 18:27 Dose: 5 mg Hydralazine HCl (Apresoline) 10 mg PO Q6H PRN PRN Reason: Hypertension Hydromorphone HCl (Dilaudid) 1 mg IVPUSH Q4H PRN PRN Reason: Pain Last Admin: 08/06/17 15:11 Dose: 1 mg Hydromorphone HCl (Dilaudid) 0.5 mg IVPUSH Q4H PRN PRN Reason: Pain Last Admin: 08/06/17 22:19 Dose: 0.5 mg Hydromorphone HCl (Dilaudid) 1 mg IVPUSH Q4H PRN PRN Reason: Pain Last Admin: 08/08/17 10:00 Dose: 1 mg Hydromorphone HCl (Dilaudid) 0.25 mg IVPUSH ONETIME ONE Stop: 08/08/17 15:48 Last Admin: 08/08/17 16:07 Dose: 0.25 mg Sodium Chloride (Normal Saline) 1,000 mls @ 75 mls/hr IV ASDIRECTED [facility] Last Admin: 07/31/17 20:20 Dose: 150 mls/hr Levofloxacin/Dextrose 750 mg/ (Premix) 150 mls @ 100 mls/hr IV Q24H [facility] Last Admin: 08/08/17 20:52 Dose: 100 mls/hr Propofol (Diprivan 100 Ml) Confirm Administered Dose 100 mls @ as directed .ROUTE .STK-MED ONE Stop: 07/31/17 19:26 Last Admin: 07/31/17 20:55 Dose: Not Given Potassium Chloride/Sodium Chloride (Normal Saline With 20 Meq Kcl) 1,000 mls @ 75 mls/hr IV ASDIRECTED [facility] Last Infusion: 08/05/17 18:06 Dose: 100 mls/hr Dextrose/Sodium Chloride (Dextrose 5%-Normal Saline) 1,000 mls @ 50 mls/hr IV ASDIRECTED [facility] Last Admin: 08/05/17 01:10 Dose: 50 mls/hr Dextrose/Sodium Chloride (Dextrose 5%-Normal Saline) 1,000 mls @ 100 mls/hr IV ASDIRECTED [facility] Last Admin: 08/06/17 15:11 Dose: 100 mls/hr Dextrose/Sodium Chloride (Dextrose 5%-Normal Saline) 1,000 mls @ 75 mls/hr IV ASDIRECTED [facility] Last Admin: 08/09/17 22:38 Dose: 75 mls/hr Piperacillin Sod/Tazobactam (Sod 4.5 gm/ Sodium Chloride) 100 mls @ 25 mls/hr IV Q6H [facility] Last Admin: 08/09/17 15:39 Dose: 25 mls/hr Piperacillin Sod/Tazobactam (Sod 4.5 gm/ Sodium Chloride) 100 mls @ 200 mls/hr IV ONETIME ONE Stop: 08/07/17 09:59 Last Admin: 08/07/17 09:55 Dose: 200 mls/hr Insulin Aspart (Novolog) 0 unit SUBCUT Q6H [facility] PRN Reason: Protocol Last Admin: 08/03/17 16:45 Dose: Not Given Iopamidol (Isovue-370 (76%)) 100 ml IVPUSH ONETIME ONE Stop: 07/30/17 16:56 Last Admin: 07/30/17 17:35 Dose: 80 ml Ketamine HCl (Ketalar) 100 mg IV ONETIME ONE Stop: 07/31/17 18:58 Last Admin: 07/31/17 18:57 Dose: 100 mg Ketamine HCl (Ketalar) 500 mg .ROUTE .STK-MED ONE Stop: 08/01/17 22:23 Lorazepam (Ativan) 0 mg IVPUSH Q4H PRN; Protocol PRN Reason: withdrawl Last Admin: 07/30/17 21:20 Dose: 1 mg Lorazepam (Ativan) 2 mg IVPUSH Q4H PRN PRN Reason: Seizures Lorazepam (Ativan) 1 mg PO Q4H PRN PRN Reason: anxiety Lorazepam (Ativan) 0 mg IVPUSH Q1H PRN; Protocol PRN Reason: withdrawl Last Admin: 08/07/17 04:56 Dose: 1 mg Lorazepam (Ativan) 1 mg IVPUSH Q4H PRN PRN Reason: Anxiety Last Admin: 08/04/17 23:58 Dose: 1 mg Lorazepam (Ativan) 4 mg IVPUSH Q4H PRN PRN Reason: Anxiety Last Admin: 08/06/17 08:18 Dose: 4 mg Lorazepam (Ativan) Confirm Administered Dose 4 mg .ROUTE .STK-MED ONE Stop: 08/05/17 13:24 Last Admin: 08/05/17 13:32 Dose: Not Given Lorazepam (Ativan) 4 mg IVPUSH Q3H [facility] Last Admin: 08/10/17 03:12 Dose: Not Given Lorazepam (Ativan) 4 mg IVPUSH Q5H PRN PRN Reason: Anxiety Last Admin: 08/07/17 21:38 Dose: 4 mg Methylprednisolone Sodium Succinate (Solu-Medrol) 80 mg IVPUSH Q12H [facility] Last Admin: 08/09/17 03:47 Dose: 80 mg Methylprednisolone Sodium Succinate (Solu-Medrol) 40 mg IVPUSH Q12H [facility] Methylprednisolone Sodium Succinate (Solu-Medrol) 40 mg IVPUSH Q12H [facility] Last Admin: 08/10/17 15:40 Dose: 40 mg Metoprolol Tartrate (Lopressor) 5 mg IVPUSH Q4H [facility] Last Admin: 08/06/17 07:50 Dose: Not Given Modafinil (Provigil) 200 mg PO ONETIME ONE Stop: 08/10/17 08:01 Last Admin: 08/10/17 14:54 Dose: Not Given Modafinil (Provigil) Confirm Administered Dose 200 mg .ROUTE .STK-MED ONE Stop: 08/10/17 10:15 Last Admin: 08/10/17 15:06 Dose: Not Given Naloxone HCl (Narcan) 0.1 mg IVPUSH ONETIME ONE Stop: 07/30/17 16:54 Last Admin: 07/30/17 17:57 Dose: Not Given Naloxone HCl (Narcan) 0.2 mg IVPUSH ONETIME ONE Stop: 07/30/17 16:59 Last Admin: 07/30/17 17:01 Dose: 0.2 mg Naloxone HCl (Narcan) 0.2 mg IVPUSH ONETIME ONE Stop: 07/30/17 17:00 Last Admin: 07/30/17 17:10 Dose: Not Given Naloxone HCl (Narcan) 0.2 mg IVPUSH ONETIME ONE Stop: 07/30/17 17:14 Last Admin: 07/30/17 17:14 Dose: 0.2 mg Propofol (Diprivan 20 Ml) 100 mg IVPUSH ONETIME ONE Stop: 07/31/17 19:19 Last Admin: 07/31/17 19:18 Dose: 100 mg Propofol (Diprivan 20 Ml) 200 mg .ROUTE .STK-MED ONE Stop: 08/01/17 22:23 Sodium Chloride (Saline Flush) 10 ml FLUSH ONETIME ONE Stop: 07/30/17 16:56 Last Admin: 07/30/17 17:35 Dose: 10 ml Thiamine HCl (Vitamin B-1) 100 mg PO DAILY [facility] Last Admin: 07/31/17 09:13 Dose: Not Given - Exam General: Alert, Cooperative, No Acute Distress, Other (Morbidly Obese) HEENT: Pupils Equal, Pupils Reactive, EOMI, Mucous Membr. Moist/[place] Neck: Supple, Trachea Midline Lungs: Normal Respiratory Effort, Decreased Breath Sounds Cardiovascular: Regular Rate, Regular Rhythm GI/Abdominal Exam: Normal Bowel Sounds, Soft, Non-Tender, No Organomegaly, No Distention, No Abnormal Bruit, No Mass (Male) Exam: Other (indwelling hardy catheter) Back Exam: Normal Inspection, Decreased Range of Motion Extremities: Normal Inspection, Normal Range of Motion, No Pedal Edema, Normal Capillary Refill Peripheral Pulses: 2+: Dorsalis Pedis (L), Dorsalis Pedis (R) Skin: Warm, Dry, Intact Neurological: No New Focal Deficit Psy/Mental Status: Alert, Normal Affect, Normal Mood - Problem List Review Problem List Initiated/Reviewed/Updated: Yes - My Orders Last 24 Hours: My Active Orders 08/11/17 09:00 methylPREDNISolone Sod Succ [Solu-MEDROL] 40 mg IVPUSH DAILY - Plan Plan:: I/P: Acute: AMS/Acute Encephalopathy - Likely 2/2 toxic/metabolic - He is able to engaged with me reasonably - He wants to eat and he is hungry - Will try t give him stimulant this am S/p HCAP/Aspiration Syndrome - S/p Mechanical Vent Placement - He is now breathing on his own - Continue supplemental O2, routine respiratory care, - Received intravenous Zosyn for 2 days and Levaquin for 7 days; both d/c'd - Recent CXR: new density within left upper chest - Follow up CXR this AM: shows no infiltrates Alcohol Abuse - Acute on Chronic - He reportedly drinks regularly - He would not explain how much he drinks or when. 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 was not willing to discuss it - SA/Psych consult------>postponed, unable to participate, will attempt weaning parameters, 08/03/17 Resolved: Withdrawal Symptoms/DT - CIWAA protocol - Mech vent - Sedation with propofol Elective Mech Vent - For 4 days - SUCCESSFUL EXTUBATION; BIPAP 07/02 Paroxysmal Atrial Fibrillation - Returned to sinus rhythm Chronic: Daughter does note he has sleep apnea and is on CPAP\\BiPAP, HLD, HTN, advanced lung disease. Morbid obesity Plan: He remains clinically stable Continue: MVI, Folic, Acid, Thiamine/CIWA protocol Ativan for Abortive Seizure and Withdrawal Symptoms PRN meds for Withdrawal Symptoms Aspiration/Seizure Precautions High Fall Risk SW/CM discharge planning SA/Psych consult Code Status:Full code. He does not have a PCP in [place] Prognosis is good at this point. [facility] [place] [facility]
[2017-08-11] MEDS ORDERED: Modafinil 200 MG Tab PO ONE (06:49)
[2017-08-11] MEDS ORDERED: methylPREDNISolone Sodium Succinate 40 MG/1 ML SDV IVPUSH SCH (09:00)
[2017-08-11] MEDS: Formoterol/Mometasone 100-5 MCG 8.8 GM Inhaler IH SCH (09:43)
[2017-08-11] MEDS ORDERED: Folic Acid 1 MG Tab PO SCH ×2 (09:55→10:45)
[2017-08-11] MEDS ORDERED: Famotidine 20 MG Tab PO SCH ×2 (09:55→21:00)
[2017-08-11] MEDS ORDERED: Thiamine 100 MG Tab PO SCH ×2 (09:56→10:45)
[2017-08-11] MEDS: Allopurinol 100 MG Tab PO SCH (10:32)
[2017-08-11] MEDS: Tamsulosin 0.4 MG Cap.ER PO SCH (10:32)
[2017-08-11] MEDS: Enoxaparin 40 MG/0.4 ML Syringe SUBCUT SCH (10:33)
[2017-08-11] MEDS: Multivitamins,Therapeutic Tab PO SCH (10:34)
[2017-08-11] MEDS: cloNIDine 0.1 MG Tab PO SCH (10:39)
--- NOTE | 2017-08-11 11:06 | PCM.DCSUM1 ---
Discharge Summary - Hospital Course Brief History: Edd Rome Jr. is a 62 yo male with past medical hx/o HTN, HLD, AZUCENA, COPD, Gout, Chronic Back Pain, BPH, DM2, Chronic ETOH Abuse and Morbid Obesity who presented to ED with decreased level consciousness and significant sedation. He was admitted for alcohol detoxification and medical treatment of possible drug overdose. - Discharge Data Discharge Date: 08/11/17 Discharge Disposition: DC/[facility] Condition: Good - Discharge Diagnosis/Problem(s) (1) Aspiration syndrome SNOMED Code(s): 49880318 ICD Code: T17.900A - UNSP FB IN RESP TRACT, PART UNSP CAUSING ASPHYX, INIT Status: Resolved Qualifiers: Encounter type: initial encounter Qualified Code(s): T17.900A - Unspecified foreign body in respiratory tract, part unspecified causing asphyxiation, initial encounter (2) Respiratory failure SNOMED Code(s): 899569558 ICD Code: J96.90 - RESPIRATORY FAILURE, UNSP, UNSP W HYPOXIA OR HYPERCAPNIA Status: Resolved Qualifiers: Chronicity: acute Respiratory failure complication: hypoxia and hypercapnia Qualified Code(s): J96.01 - Acute respiratory failure with hypoxia ; J96.02 - Acute respiratory failure with hypercapnia; J96.02 - Acute respiratory failure with hypercapnia; J96.02 - Acute respiratory failure with hypercapnia (3) Encephalopathy acute SNOMED Code(s): 5439792 ICD Code: G93.40 - ENCEPHALOPATHY, UNSPECIFIED Status: Resolved (4) Overdose SNOMED Code(s): 33416233 ICD Code: T50.901A - POISONING BY UNSP DRUG/MEDS/BIOL SUBST, ACCIDENTAL, INIT Status: Resolved Qualifiers: Encounter type: initial encounter Injury intent: undetermined intent Qualified Code(s): T50.904A - Poisoning by unspecified drugs, medicaments and biological substances, undetermined, initial encounter (5) Substance abuse SNOMED Code(s): 10630024 ICD Code: F19.10 - OTHER PSYCHOACTIVE SUBSTANCE ABUSE, UNCOMPLICATED Status : Chronic Priority: High - Patient Summary/Data Operative Procedure(s) Performed: None Complications: Aspiration Syndrome Consults: Consultations 08/05/17 12:31 Consult to Speech Language Pathology [SUPERVISOR INSPECTION Evaluation and Treatment] [CONS] Routine 08/05/17 12:32 Consult to Occupational Therapy [OT Evaluation and Treatment] [CONS] Routine Consult to Physical Therapy [PT Evaluation and Treatment] [CONS] Routine Labs Pending at D/C: None Recommended Follow-up Testing/Procedures: None Planned Operative Procedure(s) after DC: None Hospital Course: Patient was primarily admitted for altered mental status secondary to probable drug overdose. Patient carried a hx/o substance and alcohol abuse. His risk factors included chronic back pain that was poorly controlled and morbid obesity. His UDS on admission was positive for Amphetamine/Methamphetamines and Marijuana. His Head CT scan showed no acute abnormal findings. Patient was aggressively treated to maintain adequate breathing. Unfortunately with reduced level of consciousness, patient was unable to protect and maintain his airway. Therefore he was intubated and put on mechanical ventilation. He was extubated after more than a few days. His hospital course was complicated by development of aspiration syndrome. Patient was treated with appropriate antibiotic and routine respiratory care until his pneumonitis improved. As soon as his maintenance medications were trimmed down if not discontinued, patient slowly come around. And once medically cleared, he was transferred to the [facility] in [place] for continued treatment and medical care. Patient left sometime today via ground transportation. - Patient Instructions Diet: Heart Healthy Diet, Usual Diet as Tolerated, Diabetic Diet, Weight Loss Diet Activity: As Tolerated Driving: Do Not Drive Showering/Bathing: May Shower Notify Provider of: Fever, Increased Pain, Nausea and/or Vomiting Other/Special Instructions: - Transfer to [facility] for further care. - Follow up with your PCP in 1 week after dsicharge from [place] - Discharge Plan Home Medications: Home Meds Albuterol Sulfate [Proair Respiclick] 2 inh INH Q4H PRN 07/30/17 [History] Allopurinol [Zyloprim] 350 mg PO DAILY 07/30/17 [History] Budesonide/Formoterol [Symbicort 80-4.5 MCG] 1 inh INH BID 07/30/17 [History] Cyclobenzaprine [Flexeril] 10 mg PO TID PRN 07/30/17 [History] Fish Oil/Draper-3 Fatty Acids [Fish Oil 1,000 MG] 1 tab PO DAILY 07/30/17 [ History] Furosemide 40 mg PO DAILY 07/30/17 [History] Glucosamine [Glucosamine Sulfate] 1 tab PO DAILY 07/30/17 [History] Indomethacin [Indocin] 50 mg PO DAILY 07/30/17 [History] Potassium Chloride 10 meq PO DAILY 07/30/17 [History] Tamsulosin HCl 0.4 mg PO DAILY 07/30/17 [History] atorvaSTATin Calcium [Atorvastatin Calcium] 20 mg PO BEDTIME 07/30/17 [History] metFORMIN HCl [Metformin HCl] 1,000 mg PO DAILY 07/30/17 [History] Patient Handouts: Smoking Cessation, Tips for Success, [id number], Finding Treatment for Addiction, Stimulant Use Disorder-Methamphetamines Referrals: PCP,Not In Area [Primary Care Provider] - - Discharge Summary/Plan Comment DC Time >30 min.: Yes (45 mins) Discharge Summary/Plan Comment: Transfer to [facility] in [place], [place] fo further treatment - General Info Date of Service: 08/11/17 Admission Dx/Problem (Free Text: Follow Up Subjective Update: Follow Up Functional Status: Reports: Pain Controlled, Tolerating Diet, Ambulating, Urinating. Denies: New Symptoms - Review of Systems General: Denies: Fever, Weakness, Fatigue, Malaise, Chills HEENT: Reports: No Symptoms Pulmonary: Denies: Shortness of Breath, Cough, Wheezing Cardiovascular: Denies: Chest Pain, Palpitations, Dyspnea on Exertion, Edema, Lightheadedness Gastrointestinal: Denies: Abdominal Pain, Nausea, Vomiting Genitourinary: Reports: No Symptoms, Incontinence Musculoskeletal: Reports: Back Pain Skin: Denies: Cyanosis, Mottled, Pallor, Diaphoresis, Bruising, Pruritis Neurological: Denies: Confusion, Seizure, Difficulty Walking, Weakness, Gait Disturbance Psychiatric: Denies: Depression, Anxiety, Agitation, Hallucinations, Suicidal Ideation Systems Review Comment: No significant overnight or acute issues. He was doing just fine. He was alert and awake. He seemed to be at baseline. - Patient Data Vitals - Most Recent: Last Vital Signs Temp 36.8 C 08/11/17 08:00 Pulse 97 08/11/17 08:00 Resp 25 H 08/11/17 08:00 BP 123/111 H 08/11/17 10:39 Pulse Ox 93 L 08/11/17 09:44 Weight - Most Recent: 134.853 kg I&O - Last 24 hours: Intake & Output 08/10/17 08/11/17 08/11/17 22:59 06:59 14:59 Intake Total 150 180 Output Total 681 775 50 Balance -650 -628 130 Lab Results - Last 24 hrs: Laboratory Results - last 24 hr 08/10/17 08/10/17 08/10/17 Range/Units 06:42 06:45 06:45 WBC 7.64 (4.23-9.07) K/mm3 RBC 5.23 (4.63-6.08) M/mm3 Hgb 16.5 (13.7-17.5) gm/L Hct 49.0 (40.1-51.0) % MCV 93.7 H (79.0-92.2) fl MCH 31.5 (25.7-32.2) pg MCHC 33.7 (32.2-35.5) g/dl RDW Std Deviation 45.3 H (35.1-43.9) fL Plt Count 307 (163-337) K/mm3 MPV 9.5 (9.4-12.3) fl Neut % (Auto) 81.7 H (34.0-67.9) % Lymph % (Auto) 10.6 L (21.8-53.1) % [place] % (Auto) 6.8 (5.3-12.2) % Eos % (Auto) 0.1 L (0.8-7.0) Baso % (Auto) 0.1 (0.1-1.2) % Neut # (Auto) 6.24 H (1.78-5.38) K/mm3 Lymph # (Auto) 0.81 L (1.32-3.57) K/mm3 [place] # (Auto) 0.52 (0.30-0.82) K/mm3 Eos # (Auto) 0.01 L (0.04-0.54) K/mm3 Baso # (Auto) 0.01 (0.01-0.08) K/mm3 Sodium 142 (136-145) mEq/L Potassium 3.6 (3.5-5.1) mEq/L Chloride 103 (98-107) mEq/L Carbon Dioxide 30 (21-32) mEq/L Anion Gap 12.6 (5-15) BUN 22 H (7-18) mg/dL Creatinine 1.0 (0.7-1.3) mg/dL Est Cr Clr Drug Dosing 69.77 mL/min Estimated GFR (MDRD) > 60 (>60) mL/min BUN/Creatinine Ratio 22.0 H (14-18) Glucose 152 H (80-115) mg/dL POC Glucose 168 H (80-115) mg/dL Calcium 9.1 (8.5-10.1) mg/dL Magnesium 2.2 (1.8-2.4) mg/dl 08/10/17 08/10/17 08/11/17 Range/Units 12:22 18:14 00:14 WBC (4.23-9.07) K/mm3 RBC (4.63-6.08) M/mm3 Hgb (13.7-17.5) gm/L Hct (40.1-51.0) % MCV (79.0-92.2) fl MCH (25.7-32.2) pg MCHC (32.2-35.5) g/dl RDW Std Deviation (35.1-43.9) fL Plt Count (163-337) K/mm3 MPV (9.4-12.3) fl Neut % (Auto) (34.0-67.9) % Lymph % (Auto) (21.8-53.1) % [place] % (Auto) (5.3-12.2) % Eos % (Auto) (0.8-7.0) Baso % (Auto) (0.1-1.2) % Neut # (Auto) (1.78-5.38) K/mm3 Lymph # (Auto) (1.32-3.57) K/mm3 [place] # (Auto) (0.30-0.82) K/mm3 Eos # (Auto) (0.04-0.54) K/mm3 Baso # (Auto) (0.01-0.08) K/mm3 Sodium (136-145) mEq/L Potassium (3.5-5.1) mEq/L Chloride (98-107) mEq/L Carbon Dioxide (21-32) mEq/L Anion Gap (5-15) BUN (7-18) mg/dL Creatinine (0.7-1.3) mg/dL Est Cr Clr Drug Dosing mL/min Estimated GFR (MDRD) (>60) mL/min BUN/Creatinine Ratio (14-18) Glucose (80-115) mg/dL POC Glucose 107 130 H 111 (80-115) mg/dL Calcium (8.5-10.1) mg/dL Magnesium (1.8-2.4) mg/dl 08/11/17 08/11/17 Range/Units 06:22 07:35 WBC 9.82 H (4.23-9.07) K/mm3 RBC 5.36 (4.63-6.08) M/mm3 Hgb 17.0 (13.7-17.5) gm/L Hct 50.1 (40.1-51.0) % MCV 93.5 H (79.0-92.2) fl MCH 31.7 (25.7-32.2) pg MCHC 33.9 (32.2-35.5) g/dl RDW Std Deviation 46.2 H (35.1-43.9) fL Plt Count 360 H (163-337) K/mm3 MPV 9.5 (9.4-12.3) fl Neut % (Auto) 63.3 (34.0-67.9) % Lymph % (Auto) 23.9 (21.8-53.1) % [place] % (Auto) 11.4 (5.3-12.2) % Eos % (Auto) 0.4 L (0.8-7.0) Baso % (Auto) 0.0 L (0.1-1.2) % Neut # (Auto) 6.21 H (1.78-5.38) K/mm3 Lymph # (Auto) 2.35 (1.32-3.57) K/mm3 [place] # (Auto) 1.12 H (0.30-0.82) K/mm3 Eos # (Auto) 0.04 (0.04-0.54) K/mm3 Baso # (Auto) 0.00 L (0.01-0.08) K/mm3 Sodium (136-145) mEq/L Potassium (3.5-5.1) mEq/L Chloride (98-107) mEq/L Carbon Dioxide (21-32) mEq/L Anion Gap (5-15) BUN (7-18) mg/dL Creatinine (0.7-1.3) mg/dL Est Cr Clr Drug Dosing mL/min Estimated GFR (MDRD) (>60) mL/min BUN/Creatinine Ratio (14-18) Glucose (80-115) mg/dL POC Glucose 105 (80-115) mg/dL Calcium (8.5-10.1) mg/dL Magnesium (1.8-2.4) mg/dl Med Orders - Current: Current Medications Acetaminophen (Tylenol) 650 mg PO Q4H PRN PRN Reason: Pain (Mild 1-3)/fever Albuterol (Proventil Neb Soln) 2.5 mg NEB Q2H PRN PRN Reason: Shortness of Breath Albuterol/Ipratropium (Duoneb 3.0-0.5 Mg/3 Ml) 3 ml NEB Q4HRRT [facility] Last Admin: 08/11/17 09:43 Dose: 3 ml Allopurinol (Zyloprim) 350 mg PO DAILY [facility] Last Admin: 08/11/17 10:32 Dose: 350 mg Clonidine HCl (Catapres) 0.1 mg PO Q12HR [facility] Last Admin: 08/11/17 10:39 Dose: 0.1 mg Dextrose/Water (Dextrose 50% In Water) 50 ml IVPUSH ASDIRECTED PRN PRN Reason: Hypoglycemia Enoxaparin Sodium (Lovenox) 40 mg SUBCUT DAILY [facility] Last Admin: 08/11/17 10:33 Dose: 40 mg Famotidine (Pepcid) 20 mg PO BID [facility] Folic Acid (Folic Acid) 1 mg PO DAILY [facility] Last Admin: 08/11/17 10:40 Dose: 1 mg Haloperidol Lactate (Haldol) 4 mg IVPUSH Q6H PRN PRN Reason: restlessness Last Admin: 08/10/17 13:37 Dose: 4 mg Hydralazine HCl (Apresoline) 20 mg IVPUSH Q6H PRN PRN Reason: Hypertension Last Admin: 08/09/17 11:42 Dose: 20 mg Hydromorphone HCl (Dilaudid) 0.25 mg IVPUSH Q4H PRN PRN Reason: Pain Last Admin: 08/09/17 04:04 Dose: 0.25 mg Insulin Aspart (Novolog) 0 unit SUBCUT Q6H [facility] PRN Reason: Protocol Last Admin: 08/11/17 06:52 Dose: Not Given Methylprednisolone Sodium Succinate (Solu-Medrol) 40 mg IVPUSH DAILY [facility] Last Admin: 08/11/17 10:34 Dose: 40 mg Metoprolol Tartrate (Lopressor) 5 mg IVPUSH Q4H PRN PRN Reason: Tachycardia Last Admin: 08/09/17 12:23 Dose: 5 mg Miscellaneous Information (Remove Patch) 1 ea TRDERM ONETIME ONE Stop: 08/15/17 16:01 Mometasone Furoate/Formoterol Fumar (Dulera 100-5 Mcg) 0 puff IH BIDRT [facility] Last Admin: 08/11/17 09:43 Dose: 1 puff Multivitamins (Thera) 1 each PO DAILY [facility] Last Admin: 08/11/17 10:34 Dose: 1 each Ondansetron HCl (Zofran Odt) 4 mg PO Q6H PRN PRN Reason: nausea, able to take PO Ondansetron HCl (Zofran) 4 mg IV Q6H PRN PRN Reason: Nausea/Vomiting Quetiapine Fumarate (Seroquel) 50 mg PO BEDTIME [facility] Last Admin: 08/10/17 21:00 Dose: Not Given Simvastatin (Zocor) 20 mg PO BEDTIME [facility] Last Admin: 08/10/17 21:00 Dose: Not Given Tamsulosin HCl (Flomax) 0.4 mg PO DAILY [facility] Last Admin: 08/11/17 10:32 Dose: 0.4 mg Temazepam (Restoril) 15 mg PO BEDTIME PRN PRN Reason: Sleep Last Admin: 07/30/17 21:19 Dose: 15 mg Thiamine HCl (Vitamin B-1) 100 mg PO DAILY [facility] Last Admin: 08/11/17 10:40 Dose: 100 mg Discontinued Medications Albuterol (Proventil Neb Soln) 2.5 mg NEB Q4HRRT PRN PRN Reason: Shortness of Breath Last Admin: 08/06/17 22:28 Dose: 2.5 mg Albuterol/Ipratropium (Duoneb 3.0-0.5 Mg/3 Ml) 3 ml NEB Q4H PRN PRN Reason: Shortness Of Breath/wheezing Last Admin: 07/31/17 15:50 Dose: 3 ml Albuterol/Ipratropium (Duoneb 3.0-0.5 Mg/3 Ml) 3 ml NEB QIDRT [facility] Last Admin: 08/07/17 06:37 Dose: 3 ml Budesonide/Formoterol Fumarate (Symbicort 80-4.5 Mcg) 0 gm INH BIDRT [facility] Bumetanide (Bumex) 2 mg IVPUSH ONETIME ONE Stop: 08/09/17 17:35 Last Admin: 08/09/17 18:26 Dose: 2 mg Bumetanide (Bumex) 2 mg IVPUSH ONETIME ONE Stop: 08/09/17 18:16 Last Admin: 08/09/17 18:38 Dose: Not Given Clonidine HCl (Catapres-Tts 3) 0.3 mg TRDERM Q7D ONE Stop: 08/08/17 15:47 Last Admin: 08/08/17 16:08 Dose: 0.3 mg Famotidine (Pepcid) 20 mg PO BID [facility] Last Admin: 07/31/17 09:12 Dose: Not Given Famotidine (Pepcid) 20 mg IVPUSH BID [facility] Last Admin: 08/10/17 21:37 Dose: 20 mg Famotidine (Pepcid) 20 mg PO BID [facility] Folic Acid (Folic Acid) 1 mg PO DAILY [facility] Last Admin: 07/31/17 09:12 Dose: Not Given Folic Acid (Folic Acid) 1 mg IV DAILY [facility] Last Admin: 08/10/17 12:13 Dose: Not Given Folic Acid (Folic Acid) 1 mg PO DAILY [facility] Furosemide (Lasix) 40 mg IVPUSH NOW ONE Stop: 08/01/17 15:04 Last Admin: 08/01/17 15:34 Dose: 40 mg Furosemide (Lasix) 40 mg IVPUSH NOW ONE Stop: 08/02/17 05:01 Last Admin: 08/02/17 04:37 Dose: 40 mg Furosemide (Lasix) 20 mg IVPUSH NOW ONE Stop: 08/07/17 01:27 Last Admin: 08/07/17 01:38 Dose: 20 mg Haloperidol Lactate (Haldol) 5 mg IVPUSH Q4H PRN PRN Reason: Anxiety Last Admin: 07/31/17 11:00 Dose: 5 mg Haloperidol Lactate (Haldol) 7 mg IVPUSH Q2H PRN PRN Reason: Anxiety Last Admin: 07/31/17 17:47 Dose: 7 mg Haloperidol Lactate (Haldol) Confirm Administered Dose 5 mg .ROUTE .[facility]-MED ONE Stop: 07/31/17 18:27 Last Admin: 07/31/17 19:01 Dose: Not Given Haloperidol Lactate (Haldol) 5 mg IVPUSH ONETIME ONE Stop: 07/31/17 18:27 Last Admin: 07/31/17 18:27 Dose: 5 mg Hydralazine HCl (Apresoline) 10 mg PO Q6H PRN PRN Reason: Hypertension Hydromorphone HCl (Dilaudid) 1 mg IVPUSH Q4H PRN PRN Reason: Pain Last Admin: 08/06/17 15:11 Dose: 1 mg Hydromorphone HCl (Dilaudid) 0.5 mg IVPUSH Q4H PRN PRN Reason: Pain Last Admin: 08/06/17 22:19 Dose: 0.5 mg Hydromorphone HCl (Dilaudid) 1 mg IVPUSH Q4H PRN PRN Reason: Pain Last Admin: 08/08/17 10:00 Dose: 1 mg Hydromorphone HCl (Dilaudid) 0.25 mg IVPUSH ONETIME ONE Stop: 08/08/17 15:48 Last Admin: 08/08/17 16:07 Dose: 0.25 mg Sodium Chloride (Normal Saline) 1,000 mls @ 75 mls/hr IV ASDIRECTED [facility] Last Admin: 07/31/17 20:20 Dose: 150 mls/hr Levofloxacin/Dextrose 750 mg/ (Premix) 150 mls @ 100 mls/hr IV Q24H [facility] Last Admin: 08/08/17 20:52 Dose: 100 mls/hr Propofol (Diprivan 100 Ml) Confirm Administered Dose 100 mls @ as directed .ROUTE .[facility]-MED ONE Stop: 07/31/17 19:26 Last Admin: 07/31/17 20:55 Dose: Not Given Potassium Chloride/Sodium Chloride (Normal Saline With 20 Meq Kcl) 1,000 mls @ 75 mls/hr IV ASDIRECTED [facility] Last Infusion: 08/05/17 18:06 Dose: 100 mls/hr Propofol (Diprivan 100 Ml) 100 mls @ 17.16 mls/hr IV TITRATE [facility]; 20 MCG/KG/MIN PRN Reason: Protocol Last Titration: 08/05/17 08:34 Dose: 0 mcg/kg/min, 0 mls/hr Norepinephrine Bitartrate 4 mg (/ Dextrose/Water) 250 mls @ 7.5 mls/hr IV TITRATE [facility]; 2 MCG/MIN PRN Reason: Protocol Dextrose/Sodium Chloride (Dextrose 5%-Normal Saline) 1,000 mls @ 50 mls/hr IV ASDIRECTED [facility] Last Admin: 08/05/17 01:10 Dose: 50 mls/hr Dextrose/Sodium Chloride (Dextrose 5%-Normal Saline) 1,000 mls @ 100 mls/hr IV ASDIRECTED [facility] Last Admin: 08/06/17 15:11 Dose: 100 mls/hr Dextrose/Sodium Chloride (Dextrose 5%-Normal Saline) 1,000 mls @ 75 mls/hr IV ASDIRECTED [facility] Last Admin: 08/09/17 22:38 Dose: 75 mls/hr Piperacillin Sod/Tazobactam (Sod 4.5 gm/ Sodium Chloride) 100 mls @ 25 mls/hr IV Q6H [facility] Last Admin: 08/09/17 15:39 Dose: 25 mls/hr Piperacillin Sod/Tazobactam (Sod 4.5 gm/ Sodium Chloride) 100 mls @ 200 mls/hr IV ONETIME ONE Stop: 08/07/17 09:59 Last Admin: 08/07/17 09:55 Dose: 200 mls/hr Insulin Aspart (Novolog) 0 unit SUBCUT Q6H [facility] PRN Reason: Protocol Last Admin: 08/03/17 16:45 Dose: Not Given Iopamidol (Isovue-370 (76%)) 100 ml IVPUSH ONETIME ONE Stop: 07/30/17 16:56 Last Admin: 07/30/17 17:35 Dose: 80 ml Ketamine HCl (Ketalar) 100 mg IV ONETIME ONE Stop: 07/31/17 18:58 Last Admin: 07/31/17 18:57 Dose: 100 mg Ketamine HCl (Ketalar) 500 mg .ROUTE .STK-MED ONE Stop: 08/01/17 22:23 Lorazepam (Ativan) 0 mg IVPUSH Q4H PRN; Protocol PRN Reason: withdrawl Last Admin: 07/30/17 21:20 Dose: 1 mg Lorazepam (Ativan) 2 mg IVPUSH Q4H PRN PRN Reason: Seizures Lorazepam (Ativan) 1 mg PO Q4H PRN PRN Reason: anxiety Lorazepam (Ativan) 0 mg IVPUSH Q1H PRN; Protocol PRN Reason: withdrawl Last Admin: 08/07/17 04:56 Dose: 1 mg Lorazepam (Ativan) 1 mg IVPUSH Q4H PRN PRN Reason: Anxiety Last Admin: 08/04/17 23:58 Dose: 1 mg Lorazepam (Ativan) 4 mg IVPUSH Q4H PRN PRN Reason: Anxiety Last Admin: 08/06/17 08:18 Dose: 4 mg Lorazepam (Ativan) Confirm Administered Dose 4 mg .ROUTE .STK-MED ONE Stop: 08/05/17 13:24 Last Admin: 08/05/17 13:32 Dose: Not Given Lorazepam (Ativan) 4 mg IVPUSH Q3H [facility] Last Admin: 08/10/17 03:12 Dose: Not Given Lorazepam (Ativan) 4 mg IVPUSH Q5H PRN PRN Reason: Anxiety Last Admin: 08/07/17 21:38 Dose: 4 mg Methylprednisolone Sodium Succinate (Solu-Medrol) 80 mg IVPUSH Q12H [facility] Last Admin: 08/09/17 03:47 Dose: 80 mg Methylprednisolone Sodium Succinate (Solu-Medrol) 40 mg IVPUSH Q12H [facility] Methylprednisolone Sodium Succinate (Solu-Medrol) 40 mg IVPUSH Q12H [facility] Last Admin: 08/10/17 15:40 Dose: 40 mg Metoprolol Tartrate (Lopressor) 5 mg IVPUSH Q4H [facility] Last Admin: 08/06/17 07:50 Dose: Not Given Modafinil (Provigil) 200 mg PO ONETIME ONE Stop: 08/10/17 08:01 Last Admin: 08/10/17 14:54 Dose: Not Given Modafinil (Provigil) Confirm Administered Dose 200 mg .ROUTE .STK-MED ONE Stop: 08/10/17 10:15 Last Admin: 08/10/17 15:06 Dose: Not Given Modafinil (Provigil) 100 mg PO DAILY ONE Stop: 08/11/17 06:50 Last Admin: 08/11/17 06:58 Dose: 100 mg Naloxone HCl (Narcan) 0.1 mg IVPUSH ONETIME ONE Stop: 07/30/17 16:54 Last Admin: 07/30/17 17:57 Dose: Not Given Naloxone HCl (Narcan) 0.2 mg IVPUSH ONETIME ONE Stop: 07/30/17 16:59 Last Admin: 07/30/17 17:01 Dose: 0.2 mg Naloxone HCl (Narcan) 0.2 mg IVPUSH ONETIME ONE Stop: 07/30/17 17:00 Last Admin: 07/30/17 17:10 Dose: Not Given Naloxone HCl (Narcan) 0.2 mg IVPUSH ONETIME ONE Stop: 07/30/17 17:14 Last Admin: 07/30/17 17:14 Dose: 0.2 mg Propofol (Diprivan 20 Ml) 100 mg IVPUSH ONETIME ONE Stop: 07/31/17 19:19 Last Admin: 07/31/17 19:18 Dose: 100 mg Propofol (Diprivan 20 Ml) 200 mg .ROUTE .STK-MED ONE Stop: 08/01/17 22:23 Sodium Chloride (Saline Flush) 10 ml FLUSH ONETIME ONE Stop: 07/30/17 16:56 Last Admin: 07/30/17 17:35 Dose: 10 ml Thiamine HCl (Vitamin B-1) 100 mg PO DAILY [facility] Last Admin: 07/31/17 09:13 Dose: Not Given Thiamine HCl (Vitamin B-1) 100 mg IV DAILY [facility] Last Admin: 08/10/17 12:13 Dose: Not Given Thiamine HCl (Vitamin B-1) 100 mg PO DAILY [facility] - Exam General: Reports: Alert, Oriented, Cooperative, No Acute Distress, Other ( Morbidly Obese) HEENT: Reports: Pupils Equal, Pupils Reactive, EOMI, Mucous Membr. Moist/[place] Neck: Reports: Supple, Trachea Midline, No JVD Lungs: Reports: Normal Respiratory Effort, Decreased Breath Sounds Cardiovascular: Reports: Regular Rate, Regular Rhythm GI/Abdominal Exam: Normal Bowel Sounds, Soft, Non-Tender, No Organomegaly, No Distention, No Abnormal Bruit, Other (Obese) (Male) Exam: Deferred Rectal (Males) Exam: Deferred Back Exam: Reports: Normal Inspection, Decreased Range of Motion Extremities: Normal Inspection, Normal Range of Motion, Non-Tender, No Pedal Edema, Normal Capillary Refill Skin: Reports: Warm, Dry, Intact Neurological: Reports: No New Focal Deficit Psy/Mental Status: Reports: Alert, Normal Affect, Normal Mood *Q Meaningful Use (DIS) - VTE *Q VTE Criteria *Q: - Stroke *Q Stroke Criteria *Q: - AMI *Q AMI Criteria *Q:
[2017-08-11] MEDS: HYDROmorphone 0.5 MG/0.5 ML Syringe IVPUSH PRN (14:04)
[2017-08-15] MEDS ORDERED: REMOVE CLONIDINE TRDERM ONE (16:00)
== END 2017-08-11 14:06 | DRG 917 ==
LOC: JD.ED 14:32 → JD.ICU 17:48 → OBSVTOIN 08-01 09:21
PROVIDERS: ADMIT Internal Medicine; ATTEND Internal Medicine
PROC: 0BH17EZ Insertion of Endotracheal Airway into Trachea, Via Natural or Artificial Opening (ICD-10-PCS; principal; 2017-07-31)
PROC: 5A1955Z Respiratory Ventilation, Greater than 96 Consecutive Hours (ICD-10-PCS; 2017-07-31)
DX: T50.904A Poisoning by unspecified drugs, medicaments and biological substances, undetermined, initial encounter (principal); G92 Toxic encephalopathy; J69.0 Pneumonitis due to inhalation of food and vomit; J96.22 Acute and chronic respiratory failure with hypercapnia; F19.939 Other psychoactive substance use, unspecified with withdrawal, unspecified; Z68.42 Body mass index [BMI] 45.0-49.9, adult; T17.900A Unspecified foreign body in respiratory tract, part unspecified causing asphyxiation, initial encounter; F10.10 Alcohol abuse, uncomplicated; F15.10 Other stimulant abuse, uncomplicated; F12.10 Cannabis abuse, uncomplicated; G47.30 Sleep apnea, unspecified; E78.5 Hyperlipidemia, unspecified; I10 Essential (primary) hypertension; J98.4 Other disorders of lung; E11.9 Type 2 diabetes mellitus without complications; I48.0 Paroxysmal atrial fibrillation; R45.1 Restlessness and agitation; E66.01 Morbid (severe) obesity due to excess calories; Z79.84 Long term (current) use of oral hypoglycemic drugs; Z79.899 Other long term (current) drug therapy
CPT/HCPCS: 36415; 36600; 51702; 70450; 70450-26; 70491; 70491-26; 71010; 71010-26; 80048; 80053; 80306; 81001; 82803; 82962; 83690; 83735; 84443; 84484; 85025; 85610; 85730; 86140; 87070; 87077; 87181; 87184; 87186; 87205; 92610-GN; 93005; 93306; 94002; 94003; 94150; 94640; 94660; 94664; 96361; 96365; 96366; 96374; 96375; 96376; 97110-GP; 97161-GP; 97162-GP; 97167-GO; 97530-GP; 97535-GO; 99285; 99285-25; A9270-GY; G0378; G0480; J0360; J1170; J1630; J1650; J1815-GY; J1940; J1956; J2060; J2310; J2543; J2704; J2920; J3411; J3480; J3490; J7030; J7040; J7042; J7050; P9612; Q9967